=== PATIENT | female | born 1970 | race Caucasian/White ===

== ENCOUNTER 2024-01-13 05:58 | Inpatient (IN) | payer OTHER, SELFPAY ==
[2024-01-13] VITALS (42 sets, daily range): BP systolic 75–153; BP diastolic 34–85; PULSE 35–74; RESP 12–22; TEMP 36.5–37.1; O2SAT 94–100; BMI 17.3
--- NOTE | 2024-01-13 | ECG_ITS ---
Test Reason : BRADYCARDIA Blood Pressure : / mmHG Vent. Rate : 046 BPM Atrial Rate : 046 BPM P-R Int : 202 ms QRS Dur : 086 ms QT Int : 384 ms P-R-T Axes : 075 -77 071 degrees QTc Int : 336 ms Sinus bradycardia Left axis deviation Septal infarct (cited on or before 13-JAN-2024) Abnormal ECG When compared with ECG of 13-JAN-2024 15:28, Nonspecific T wave abnormality has replaced inverted T waves in Anterior leads QT has shortened Referred By: Cammy Hood Electronically Signed By:Efrain Conde
--- NOTE | ~2024-01-13 | XR_ITS ---
EXAMINATION: XR KNEE, LEFT CLINICAL INFORMATION: Left knee pain and swelling. COMPARISON: None available. TECHNIQUE: Two views of the left knee. FINDINGS: Alignment is normal patellofemoral and tibiofemoral compartments. No acute fracture or subluxation. Moderate joint effusion. Tricompartmental osteophyte formation. The joint spaces are not optimally evaluated on these portable radiographs obtained without weightbearing. XR/XR knee LT 2V IMPRESSION: Moderate to severe tricompartmental osteoarthritis and moderate joint effusion of the left knee. No evidence of acute osseous injury.
[2024-01-13 06:25] LABS: Glucose, Whole Blood 101 mg/dL (60-115)
--- NOTE | 2024-01-13 06:45 | ED_ITS ---
HPI - Extremity Problem General Chief complaint: Extremity Problem Stated complaint: Lt Knee swollen Time Seen by Provider: 01/13/24 06:44 Source: patient Mode of arrival: ambulatory Limitations: no limitations History of Present Illness HPI Narrative: 53-year-old female history of hypoglycemia who presents emergency department for evaluation of left knee pain and swelling. Patient states she has arthritis of her knees. She states that over the last 2 days she has had increased pain with swelling and increased warmth of the skin around the knee. She states she does feel fatigued but denied fever, chills, nausea, vomiting or diarrhea. The patient states that she smokes up to a g of cocaine per day and has been doing this every day for years. She denies injection drug use. According to her daughter, the patient never sleeps while she is using cocaine and then sleeps for several days. The daughter state that the patient always appears to be agitated even when she has not using cocaine. The patient was on prescription pain medications for her chronic pain and is changed to methadone for chronic pain, she denies ever using injection opiates. Related Data Allergies Allergy/AdvReac Type Severity Reaction Status Date / Time codeine AdvReac Rash Verified 01/13/24 06:15 Review of Systems 2 Review of Systems: Yes all other systems are reviewed and are negative [facility] Past Medical History [facility] Narrative: Past medical history: Hypoglycemia, cocaine use disorder, chronic methadone use. Past surgical history: Gastric bypass surgery 6 years prior. Social history: She does smoke cigarettes. She denies alcohol use. She does have chronic pain and is a methadone program for pain management. She denied injection drug use. Social History Social History Smoked in Last 30 Days: Yes Use of substances other than those prescribed or required for medical reasons: Yes Substance Use Type: Crack/Cocaine Advance Directives: No Advance Directives Information Provided: Yes Physical Exam 2 Vital Signs: Vital Signs: Last Vital Signs Temp 98 F 01/13/24 14:45 Pulse 41 L 01/13/24 16:40 Resp 21 H 01/13/24 15:15 BP 80/36 L 01/13/24 16:40 Pulse Ox 99 01/13/24 15:15 O2 Del Method Nasal Cannula 01/13/24 15:15 O2 Flow Rate 2.5 01/13/24 15:15 BMI result Body Mass Index 17.3 Vital signs revealed a blood pressure of 89/55 with a low heart rate of 47 Exam: General: Awake, appears to be in distress secondary to pain, low BMI of 17.3 Head: Normocephalic, atraumatic EENT: PERRL, Lids normal, sclera normal, conjunctiva normal, nose normal , ears normal, throat without erythema or exudates Neck: Supple, no adenopathy Lung: breath sounds symmetric, no wheezing, rales or rhonchi Chest: symmetric movement, nontender Heart: regular rate and rhythm, normal S1, S2 no murmurs or rubs Abdomen: soft, non-tender, nondistended, normal bowel sounds Back: no vertebral tenderness, no CVAT Extremities: Patient has increased warmth over the left knee with a large joint effusion, limited flexion and extension of the knee secondary to pain Neuro: Awake, alert, oriented, normal speech, cranial nerves intact, moves all extremities symmetrically Psych: Pleasant, cooperative Medications Administered Generic Name Dose Route Start Last Admin Trade Name Freq PRN Reason Stop Dose Admin Norepinephrine Bitartrate 8 mg in 250 mls @ 0 mls/hr 01/13/24 16:15 01/13/24 16:40 Levophed IV 0.01 mcg/kg/min .Q0M NICHO 0.86 mls/hr Administration Protocol Per Protocol Cefepime HCl 2 gm/ Sodium 50 mls @ 100 mls/hr 01/13/24 16:30 01/13/24 16:52 Chloride IV 100 mls/hr Q8H NICHO Administration Discontinued Medications Generic Name Dose Route Start Last Admin Trade Name Freq PRN Reason Stop Dose Admin Diphenhydramine HCl 25 mg 01/13/24 06:55 01/13/24 07:41 Diphenhydramine Hcl 50 Mg/Ml Vial IVPUSH 01/13/24 06:56 25 mg ONCE STA Administration Hydromorphone HCl 1 mg 01/13/24 06:55 01/13/24 07:44 Hydromorphone Hcl 1 Mg/Ml Syringe IVPUSH 01/13/24 06:56 1 mg ONCE STA Administration Protocol Ceftriaxone Sodium 1 gm/ 50 mls @ 100 mls/hr 01/13/24 11:41 01/13/24 12:42 Sodium Chloride IV 01/13/24 12:10 Infused ONCE ONE Infusion Vancomycin HCl 1,250 mg/ 250 mls @ 166.667 mls/hr 01/13/24 11:41 01/13/24 14:45 Sodium Chloride IV 01/13/24 13:10 Infused ONCE ONE Infusion Sodium Chloride 1,374.39 mls @ 1,374.39 mls/hr 01/13/24 11:47 01/13/24 13:30 Ns 30 ml/kg infuse over 1 hr (1374.39 ml) 01/13/24 12:46 Infused IV Infusion .Q1H STA Sodium Chloride 1,000 mls @ 999 mls/hr 01/13/24 13:40 01/13/24 14:55 Ns IV 01/13/24 14:40 Infused .Q1H1M STA Infusion Lidocaine HCl 5 ml 01/13/24 08:38 01/13/24 08:49 Lidocaine Hcl 1 % Mpf 5 Ml Vial INFILTRATI 01/13/24 08:39 5 ml ONCE STA Administration Midodrine 10 mg 01/13/24 13:39 01/13/24 13:49 Midodrine Hcl 10 Mg Tablet PO 01/13/24 13:40 10 mg ONCE ONE Administration Ondansetron HCl 4 mg 01/13/24 12:52 01/13/24 13:09 Ondansetron Hcl 4 Mg/2 Ml Vial IVPUSH 01/13/24 12:53 4 mg ONCE ONE Administration Medical Decision Making Medical Decision Making MDM Narrative: 53-year-old female with history of hypoglycemia, smokes up to 1 g of cocaine daily, takes methadone daily for chronic pain, denies injection drug use who presents emergency department for evaluation of 2 days of left knee pain, swelling and increased warmth. She states she felt fatigued but had no other systemic symptoms such as fever, chills, nausea, vomiting. Vital signs did reveal a low heart rate and a low blood pressure, but she was afebrile. Exam did reveal significant joint effusion to the left knee with increased warmth over the left knee with no significant cellulitis. 11:50 Differential diagnosis: ?Includes but is not limited to septic arthritis, inflammatory arthritis, electrolyte abnormalities, anemia, polysubstance use disorder Following evaluation was ordered: CBC, CMP, CRP, ESR, blood cultures x2, lactic acid, urine drug screen, urinalysis, blood cultures x2 x-ray left knee x2, synovial fluid: Cell count, culture and Gram stain, Course: 11:50 My interpretation patient's laboratory evaluation as follows: WBC was normal 8100. Anemia with an H&H of 11 and 34. Elevated CRP 11.89. Elevated ESR 26. Synovial fluid cell count 59,640-95% neutrophils 5% lymphocytes. Gram stain, culture and crystal analysis pending. Given the high number of WBCs and neutrophils and the patient's synovial fluid I did order ceftriaxone 1 g IV and vancomycin 1250 mg IV. I will discuss disposition with the covering orthopedic provider. 12:11 Patient's lactic acid was elevated at 2.2 13:55 The patient has had bradycardia and several low blood pressures. I ordered midodrine 10 mg orally and the patient will receive a total of 3 L of normal saline IV. I did discuss the patient's presentation with the orthopedic physician clinical project assistant, Ivette Brambila who presented the patient to Dr. Sigala. They would like to take the patient to the OR today however given her abnormal vital signs, orthopedics is requesting that the patient be admitted to medicine to stabilize her prior to surgery. They have placed the patient on the OR schedule for tomorrow and will do the procedure if the patient can be medically cleared. 16:33 Patient received midodrine and completed her fluid bolus but still hypotensive and the patient does have a sinus bradycardia. At this time I do not believe that the patient's hypotension and bradycardia are caused by sepsis but rather caused by her methadone and cocaine use. I did discuss the patient's presentation with the covering access services librarian, Dr. Cammy Hood. After this discussion, patient was started on norepinephrine low blood pressure and bradycardia. The patient was accepted into the intensive care unit for further management. I did inform the patient's daughters and the patient about the treatment plan. Admission/Observation Consideration of admission/observation: Escalation of care including admission/observation considered Consult Healthcare Provider Management of the patient was discussed with: Hospitalist and Examiner Rating Clerk (Physician clinical project assistant Kandi Brambila) Lab Data MDM Lab Attestation statement: I reviewed the patient's lab results. 01/13/24 07:41 01/13/24 07:41 Labs: Lab Results 01/13/24 01/13/24 01/13/24 Range/Units 06:21 07:41 08:54 WBC 8.1 (4.8-10.8) X10*3/uL RBC 4.19 L (4.20-5.50) X10*6/uL Hgb 11.2 L (12.0-16.0) g/dl Hct 34.7 L (37.0-47.0) % MCV 82.8 (80.0-98.0) fL MCH 26.7 L (27.0-33.0) pg MCHC 32.3 (31.0-35.0) g/dl RDW 15.2 (11.0-16.0) % Plt Count 232 (160-400) X10*3/uL MPV 8.7 L (9.4-12.3) fL Immature Gran % (Auto) 0.4 (0.0-0.4) % Neut % (Auto) 66.8 (45-73) % Lymph % (Auto) 18.1 L (20-40) % Kimble % (Auto) 13.0 H (2-11) % Eos % (Auto) 1.2 (0-4) % Baso % (Auto) 0.5 (0-2) % Lymph # (Auto) 1.5 (1.2-4.9) X10*3/uL Kimble # (Auto) 1.1 (0.1-1.2) X10*3/uL Eos # (Auto) 0.1 (0.0-0.4) X10*3/uL Baso # (Auto) 0.0 (0.0-0.2) X10*3/uL Abs Immat Gran (auto) 0.03 (0.00-0.03) X10*3/uL Absolute Neuts (auto) 5.4 (2.0-8.3) x10*3/uL Absolute Nucleated RBC 0.000 (0.0-0.012) X10*3/uL Nucleated RBC % (auto) 0.0 (0.0-0.2) /100WBC ESR 26 H (0-20) MM/HR Sodium 139 (135-145) mmol/L Potassium 3.4 (3.3-5.1) mmol/L Chloride 104 (96-108) mmol/L Carbon Dioxide 28 (22-29) mmol/L Anion Gap 10 L (12-20) BUN 11 (9-16) mg/dL Creatinine 0.58 (0.5-1.4) mg/dL Estim Creat Clear Calc 83.0 Estimated GFR > 60 POC Glucose 101 (60-115) mg/dL Random Glucose 96 (60-115) mg/dL Lactic Acid (0.5-2.0) mmol/L Lactic Acid F/U @ 2Hr (0.5-2.0) mmol/L Calcium 8.9 (8.4-10.2) mg/dL Total Bilirubin 0.7 (0.0-1.0) mg/dL AST 16 (5-31) U/L ALT 13 (0-31) U/L Alkaline Phosphatase 91 (39-117) U/L C-Reactive Protein 11.89 H (< or = 0.50) mg/dL Total Protein 6.6 (6.5-8.0) g/dL Albumin 3.6 (3.5-5.0) g/dL Urine Color Urine Appearance Urine pH (5.0-9.0) Ur Specific [place] (1.005-1.025) Urine Protein (Neg-Trace) mg/dL Urine Glucose (UA) (Negative) mg/dL Urine Ketones (Negative) mg/dL Urine Blood (Negative) Urine Nitrite (Negative) Ur Leukocyte Esterase (Negative) Urine RBC (0-2) /HPF Urine WBC (0-5) /HPF Ur Squamous Epith Cells (0-2) /HPF Urine Bacteria (None Seen) Hyaline Casts (0-2) /LPF Synovial Source left kneee Synovial WBC 59.640 X10*3/uL Synovial RBC 0.002 X10*6/uL Synovial Neutrophils 95 % Synovial Lymphocytes 5 % Urine Opiates Screen (Not Detect) Urine Fentanyl Screen (Not Detect) Ur Barbiturates Screen (Not Detect) Ur Phencyclidine Scrn (Not Detect) Ur Amphetamines Screen (Not Detect) U Benzodiazepines Scrn (Not Detect) Urine Cocaine Screen (Not Detect) U Marijuana (THC) Screen (Not Detect) 01/13/24 01/13/24 01/13/24 Range/Units 12:11 14:22 15:29 WBC (4.8-10.8) X10*3/uL RBC (4.20-5.50) X10*6/uL Hgb (12.0-16.0) g/dl Hct (37.0-47.0) % MCV (80.0-98.0) fL MCH (27.0-33.0) pg MCHC (31.0-35.0) g/dl RDW (11.0-16.0) % Plt Count (160-400) X10*3/uL MPV (9.4-12.3) fL Immature Gran % (Auto) (0.0-0.4) % Neut % (Auto) (45-73) % Lymph % (Auto) (20-40) % Kimble % (Auto) (2-11) % Eos % (Auto) (0-4) % Baso % (Auto) (0-2) % Lymph # (Auto) (1.2-4.9) X10*3/uL Kimble # (Auto) (0.1-1.2) X10*3/uL Eos # (Auto) (0.0-0.4) X10*3/uL Baso # (Auto) (0.0-0.2) X10*3/uL Abs Immat Gran (auto) (0.00-0.03) X10*3/uL Absolute Neuts (auto) (2.0-8.3) x10*3/uL Absolute Nucleated RBC (0.0-0.012) X10*3/uL Nucleated RBC % (auto) (0.0-0.2) /100WBC ESR (0-20) MM/HR Sodium (135-145) mmol/L Potassium (3.3-5.1) mmol/L Chloride (96-108) mmol/L Carbon Dioxide (22-29) mmol/L Anion Gap (12-20) BUN (9-16) mg/dL Creatinine (0.5-1.4) mg/dL Estim Creat Clear Calc Estimated GFR POC Glucose 96 (60-115) mg/dL Random Glucose (60-115) mg/dL Lactic Acid 2.2 H* (0.5-2.0) mmol/L Lactic Acid F/U @ 2Hr 0.9 (0.5-2.0) mmol/L Calcium (8.4-10.2) mg/dL Total Bilirubin (0.0-1.0) mg/dL AST (5-31) U/L ALT (0-31) U/L Alkaline Phosphatase (39-117) U/L C-Reactive Protein (< or = 0.50) mg/dL Total Protein (6.5-8.0) g/dL Albumin (3.5-5.0) g/dL Urine Color Yellow Urine Appearance Clear Urine pH 6.5 (5.0-9.0) Ur Specific [place] 1.015 (1.005-1.025) Urine Protein Negative (Neg-Trace) mg/dL Urine Glucose (UA) Negative (Negative) mg/dL Urine Ketones Negative (Negative) mg/dL Urine Blood Moderate (2+) H (Negative) Urine Nitrite Negative (Negative) Ur Leukocyte Esterase Negative (Negative) Urine RBC >20 H (0-2) /HPF Urine WBC 0-5 (0-5) /HPF Ur Squamous Epith Cells 0-2 (0-2) /HPF Urine Bacteria None Seen (None Seen) Hyaline Casts 0-2 (0-2) /LPF Synovial Source Synovial WBC X10*3/uL Synovial RBC X10*6/uL Synovial Neutrophils % Synovial Lymphocytes % Urine Opiates Screen Not Detected (Not Detect) Urine Fentanyl Screen Not Detected (Not Detect) Ur Barbiturates Screen Not Detected (Not Detect) Ur Phencyclidine Scrn Not Detected (Not Detect) Ur Amphetamines Screen Not Detected (Not Detect) U Benzodiazepines Scrn Not Detected (Not Detect) Urine Cocaine Screen POSITIVE H (Not Detect) U Marijuana (THC) Screen Not Detected (Not Detect) Independent Interpretation I performed an independent interpretation of an: EKG and Plain X-Ray Interpretation: My independent interpretation patient's left knee is as follows: Arthritic changes with no acute fracture My independent interpretation patient's 12 EKG done at 15:28 hours is as follows: Sinus bradycardia with a rate of 40, WA interval at the upper limit of normal 202 milliseconds with a normal QRS and QTC interval, there is no ST segment elevation there has no ST segment depression there is flattening of the T-waves diffusely, there are no old EKGs for comparison. Radiology Impression Discussion of test interpretation with radiology: I have reviewed the radiologist's reading. Radiologist Impression: XR knee LT 2V IMPRESSION: Moderate to severe tricompartmental osteoarthritis and moderate joint effusion of the left knee. No evidence of acute osseous injury. Dictated By: Jamshid Rosales MD Independent Historian Clinical information obtained from an independent historian. History obtained from or confirmed by: Other (Daughters) Procedures Procedure Narrative Procedure Narrative: Procedure note: Left knee arthrocentesis I did discuss the procedure with the patient and the daughter and they did give me informed verbal consent to proceed. After this discussion, I did not leave the room. The left knee was prepped with Betadine and then anesthetized with 1% lidocaine x3 cc. Using an 18 gauge needle and a 30 cc syringe, I was able to easily enter the joint space and aspirated approximately 60 cc of cloudy yellow synovial fluid. The needle was withdrawn and a Band-Aid was placed over the puncture site. The patient tolerated the procedure well. Critical Care Time Critical Care Time Critical Care Time: Yes Total Critical Care Time: 45 Attestation: Critical Care: The patient was critically ill with a high probability of imminent or life threatening deterioration. I spent greater than 30 minutes of discontinuous time evaluating the patient,delivering critical care at the bedside, discussing and evaluating pertinent data with consultants. Critical care time does not include time spent performing separately billable procedures or teaching. Total time spent performing critical care was 45 minutes. Discharge Plan Discharge Patient Disposition: Admitted As Inpatient Print Language: Guamanian
--- NOTE | 2024-01-13 07:35 | PC.NURSE ---
md kilgore notified bp 90s/70s MAP 82. no dizziness. pt restless but alert.
[2024-01-13] MEDS: diphenhydrAMINE HCL 50 MG/ML VIAL 25 MG IVPUSH (07:41)
[2024-01-13] MEDS: HYDROmorphone HCl 1 MG/ML SYRINGE IVPUSH (07:44)
[2024-01-13 07:55] LABS: MANUAL DIFF FLAG NO
[2024-01-13 07:57] LABS: Basophils Percent Auto 0.5 % (0-2); Eosinophils Absolute Auto 0.1 X10*3/uL (0.0-0.4); Eosinophils Percent Auto 1.2 % (0-4); Hematocrit 34.7 % (37.0-47.0); Hemoglobin 11.2 g/dl (12.0-16.0); Imm Gran Abs Auto 0.03 X10*3/uL (0.00-0.03); Imm Gran Pct Auto 0.4 % (0.0-0.4); Lymphocytes Absolute Auto 1.5 X10*3/uL (1.2-4.9); Lymphocytes Percent Auto 18.1 % (20-40); Mean Corpuscular HGB Conc 32.3 g/dl (31.0-35.0); Mean Corpuscular Hemoglobin 26.7 pg (27.0-33.0); Mean Corpuscular Volume 82.8 fL (80.0-98.0); Mean Platelet Volume 8.7 fL (9.4-12.3); Monocytes Absolute Auto 1.1 X10*3/uL (0.1-1.2); Neutrophils Absolute Auto 5.4 x10*3/uL (2.0-8.3); Neutrophils Percent Auto 66.8 % (45-73); Platelet Count 232 X10*3/uL (160-400); Red Blood Count 4.19 X10*6/uL (4.20-5.50); Red Cell Distribution Width 15.2 % (11.0-16.0); White Blood Count 8.1 X10*3/uL (4.8-10.8)
[2024-01-13 08:14] LABS: Alanine Aminotransferase 13 U/L (0-31); Albumin Level 3.6 g/dL (3.5-5.0); Alkaline Phosphatase 91 U/L (39-117); Anion Gap 10 (12-20); Aspartate Amino Transferase 16 U/L (5-31); Bilirubin Total 0.7 mg/dL (0.0-1.0); Blood Urea Nitrogen 11 mg/dL (9-16); C Reactive Protein 11.89 mg/dL (< or = 0.50); Calcium 8.9 mg/dL (8.4-10.2); Carbon Dioxide 28 mmol/L (22-29); Chloride 104 mmol/L (96-108); Estimated Glomerular Filt Rate > 60; Glucose Random 96 mg/dL (60-115); Potassium 3.4 mmol/L (3.3-5.1); Sodium 139 mmol/L (135-145); Total Protein 6.6 g/dL (6.5-8.0)
--- NOTE | 2024-01-13 08:15 | PC.NURSE ---
md kilgore ordered 2.5L NC as pt states baseline 2.5 L at home for COPD- provider aware 92% and above sat w/o resp distress, normal RR
[2024-01-13 08:47] LABS: Erythrocyte Sedimentation Rate 26 MM/HR (0-20)
[2024-01-13] MEDS: Lidocaine HCl 1 % MPF 5 ML VIAL INFILTRATI (08:49)
--- NOTE | 2024-01-13 09:20 | PC.NURSE ---
called lab to ask about appropriate synovial fluid tubes- lab sent down kit. obtained fluids, sent down by tech. handled procedure well. 30 cc yellow clear fluid by obtained.
--- NOTE | 2024-01-13 10:09 | PC.NURSE ---
reports improved pain.
--- NOTE | 2024-01-13 10:12 | PC.NURSE ---
md kilgore made aware bp 94/52, was sbp 103 about 15 min ago and hr is in the 40s-50s. no distress. pt sleeping/resting off/on without distress. no new orders. no dizziness
[2024-01-13 10:13] LABS: RBC Synovial Fluid 0.002 X10*6/uL
[2024-01-13 10:14] LABS: BF Shift QC OK YES; Man Diluent Bkgrd OK YES
[2024-01-13 10:58] LABS: Lymphocytes Synovial Fluid 5 %; Neutrophils Synovial Fluid 95 %
--- NOTE | 2024-01-13 11:14 | PC.NURSE ---
md kilgore aware 89/57(65) bp hr 47 bed 20. on/off dozing then restless. no distress.
--- NOTE | 2024-01-13 12:00 | PC.NURSE ---
walked to bathroom well w walker. gave urine clean catch. md kilgore at bedside sudhir'ing pt
[2024-01-13] MEDS: cefTRIAXone sodium 1 GM in 0.9 % Sodium Chloride 50 ML IV (12:09)
[2024-01-13 12:18] LABS: Appearance Urine Clear; Color Urine Yellow; Glucose Urine UA Negative (Negative); Leukocyte Esterase Urine Negative (Negative); Nitrite Urine Negative (Negative); PH 6.5 (5.0-9.0); Specific Gravity - Urine 1.015 (1.005-1.025); UMIC TRIGGER UACC YES; Urine Blood Moderate (2+) (Negative); Urine Ketones Negative (Negative); Urine Protein Negative (Neg-Trace)
[2024-01-13 12:23] LABS: Bacteria Urine None Seen (None Seen); Hyaline Casts Urine 0-2 /LPF (0-2); RBC Urine >20 /HPF (0-2); Squamous Epithelial Cell Urine 0-2 /HPF (0-2); WBC Urine 0-5 /HPF (0-5)
[2024-01-13 12:24] LABS: Amphetamine Screen Urine Not Detected (Not Detect); Barbiturates, Urine Not Detected (Not Detect); Benzodiazepines Screen Urine Not Detected (Not Detect); Cannabinoid Screen Urine Not Detected (Not Detect); Cocaine Screen Urine POSITIVE (Not Detect); Fentanyl, urine Not Detected (Not Detect); Opiate Screen Urine Not Detected (Not Detect); Phencyclidine Screen Urine Not Detected (Not Detect)
[2024-01-13 12:27] LABS: Lactic Acid 2.2 mmol/L (0.5-2.0)
[2024-01-13] MEDS: vancomycin HCL 1,250 MG in 0.9 % Sodium Chloride 250 ML 166.67 MG IV (12:46)
--- NOTE | 2024-01-13 12:57 | PC.NURSE ---
pt md jmae nava, ordering zofran
[2024-01-13] MEDS: ondansetron HCL 4 MG/2 ML VIAL IVPUSH (13:09)
--- NOTE | 2024-01-13 13:16 | PC.NURSE ---
md kilgore aware 78/44(57), hr for a brief moment to 42 back up to 56. pt was sleeping, when awaoke hr back to 50s.
[2024-01-13] MEDS: 0.9 % Sodium Chloride 1,000 ML 999 ML IV (13:49)
[2024-01-13] MEDS: Midodrine HCl 10 MG TABLET PO (13:49)
[2024-01-13 14:14] LABS: Reflex Lactate? Lactic Acid Added
[2024-01-13 14:37] LABS: ~Lactic Acid-LAB USE ONLY 0.9 mmol/L (0.5-2.0)
--- NOTE | 2024-01-13 15:19 | ECG_ITS ---
Test Reason : BRADYCARDIA Blood Pressure : / mmHG Vent. Rate : 038 BPM Atrial Rate : 038 BPM P-R Int : 188 ms QRS Dur : 090 ms QT Int : 342 ms P-R-T Axes : -77 270 066 degrees QTc Int : 271 ms Unusual P axis, possible ectopic atrial bradycardia Right superior axis deviation Septal infarct , age undetermined Abnormal ECG No previous ECGs available Referred By: Myke Garrido Electronically Signed By:Efrain Conde
--- NOTE | 2024-01-13 15:32 | PC.NURSE ---
per md kilgore ecg taken at bedside. md kilgore aware hr mid 30s , 95/50(65). pt resting, no distress.
[2024-01-13 15:35] LABS: Glucose, Whole Blood 96 mg/dL (60-115)
--- NOTE | 2024-01-13 16:29 | PHA.PROG ---
Admission Date/Time: Indication: BONE/JOINT INFECTION Weight in k.813 kg Adjusted body weight in K.145 Lugoff body weight in K.7 Obesity Dosing Indication % IBW: 17.3 Serum Creatinine - Last 168 Hours 01/13/24 07:41 Creatinine 0.58 Estimated CrCl and GFR - Last 168 Hours 01/13/24 07:41 Estim Creat Clear Calc 83.0 Estimated GFR > 60 Vancomycin Loading Dose: 1250 MG Current Vancomycin Dosing Regimen: 750 MG Q12 Vancomycin Monitoring using AUC goal of 400 - 600 range with trough as surrogate marker:445 Date and Time for next Vancomycin Level to be drawn: 01/13 @1700 Pharmacist Comments on Vancomycin Plan: BECAUSE OF PATIENT SMALL SIZE (IBW IS ACTUALLY GREATER THAN ACTUAL BW) WILL BE STARTING ON LOWER REGIMEN AT FIRST AND ASSESS TOMORROW TO SEE IF DOSE INCREASE IS WARRANTED. Vancomycin dosing will take advantage of [employer] as a clinical decision support tool that uses Bayesian modeling to calculate individual patient's pharmacokinetic parameters and forecast the patient's drug concentration time course with the target goal AUC 24 range of 400 - 600 mg/L/hr.
--- NOTE | 2024-01-13 16:37 | P.HPCC_ITS ---
History of Present Illness Date of Service: 01/13/24 Chief Complaint: L Knee Pain Patient is a 53 Y F with COPD, prior gastric bypass, recurrent hypoglycemia, chronic pain on methadone, and cocaine misuse, presenting on 01/12 to emergency department with L knee edema, pain; in emergency department, arthrocentesis performed, found to have synovial fluid suggestive of septic joint; of note, patient also found to have sinus bradycardia 30s-40s, and hypotension 80s/40s, though w/o clinical nor laboratory signs of shock; patient admitted to ICU for closer monitoring Review of Systems 2 Review of Systems: Yes all other systems are reviewed and are negative [facility] Social History Social History Household Members: Family Housing: House Do you presently have visiting nurse or other home services: No Patient Tobacco Use Status: Tobacco use Unknown Substance Use Type: Crack/Cocaine Meds Allergies Allergy/AdvReac Type Severity Reaction Status Date / Time codeine AdvReac Rash Verified 01/13/24 06:15 Active Medications: Current Medications Acetaminophen (Acetaminophen 325 Mg Tablet) 650 mg PO Q6H PRN PRN Reason: Fever >100.4 Hydromorphone HCl (Hydromorphone Hcl 0.5 Mg/0.5 Ml Syringe) 0.5 mg IVPUSH Q2H PRN; Protocol PRN Reason: Pain, Moderate(Pain Scale 4-6) Norepinephrine Bitartrate (Levophed) 8 mg in 250 mls @ 0 mls/hr IV .Q0M [facility]; Protocol Cefepime HCl 2 gm/ Sodium (Chloride) 50 mls @ 100 mls/hr IV Q8H [facility] Vancomycin HCl 750 mg/ Sodium (Chloride) 265 mls @ 265 mls/hr IV Q12H [facility] Pharmacy Consult (Consult Rx Vancomycin Dosing) 1 each MISCELLANE DAILY PRN PRN Reason: Consult order Home Medications ?Medication ?Instructions ?Recorded ?Confirmed ?Last Taken ?Type acetaminophen 500 mg tablet 500 mg PO Q6H PRN Pain 01/13/24 01/13/24 Unknown History methadone 10 mg/mL oral concentrate 100 mg PO DAILY 01/13/24 01/13/24 04:00 History Physical Exam 2 Vital Signs: Vital Signs: Last Vital Signs Temp 98 F 01/13/24 14:45 Pulse 39 L 01/13/24 15:15 Resp 21 H 01/13/24 15:15 BP 89/45 L 01/13/24 15:15 Pulse Ox 99 01/13/24 15:15 O2 Del Method Nasal Cannula 01/13/24 15:15 O2 Flow Rate 2.5 01/13/24 15:15 BMI result Body Mass Index 17.3 Results Labs 01/14/24 04:40 01/14/24 04:40 Labs: Laboratory Results - last 24 hr 01/13/24 01/13/24 01/13/24 06:21 07:41 08:54 MCV 82.8 MCH 26.7 L MCHC 32.3 RDW 15.2 Plt Count 232 MPV 8.7 L Immature Gran % (Auto) 0.4 Neut % (Auto) 66.8 Lymph % (Auto) 18.1 L [place] % (Auto) 13.0 H Eos % (Auto) 1.2 Baso % (Auto) 0.5 Lymph # (Auto) 1.5 [place] # (Auto) 1.1 Eos # (Auto) 0.1 Baso # (Auto) 0.0 Abs Immat Gran (auto) 0.03 Absolute Neuts (auto) 5.4 Absolute Nucleated RBC 0.000 Nucleated RBC % (auto) 0.0 ESR 26 H Anion Gap 10 L Estim Creat Clear Calc 83.0 Estimated GFR > 60 POC Glucose 101 Random Glucose 96 Lactic Acid Lactic Acid F/U @ 2Hr Calcium 8.9 Total Bilirubin 0.7 AST 16 ALT 13 Alkaline Phosphatase 91 C-Reactive Protein 11.89 H Total Protein 6.6 Albumin 3.6 Urine Color Urine Appearance Urine pH Ur Specific [place] Urine Protein Urine Glucose (UA) Urine Ketones Urine Blood Urine Nitrite Ur Leukocyte Esterase Urine RBC Urine WBC Ur Squamous Epith Cells Urine Bacteria Hyaline Casts Synovial Source left kneee Synovial WBC 59.640 Synovial RBC 0.002 Synovial Neutrophils 95 Synovial Lymphocytes 5 Urine Opiates Screen Urine Fentanyl Screen Ur Barbiturates Screen Ur Phencyclidine Scrn Ur Amphetamines Screen U Benzodiazepines Scrn Urine Cocaine Screen U Marijuana (THC) Screen 01/13/24 01/13/24 01/13/24 12:11 14:22 15:29 MCV MCH MCHC RDW Plt Count MPV Immature Gran % (Auto) Neut % (Auto) Lymph % (Auto) [place] % (Auto) Eos % (Auto) Baso % (Auto) Lymph # (Auto) [place] # (Auto) Eos # (Auto) Baso # (Auto) Abs Immat Gran (auto) Absolute Neuts (auto) Absolute Nucleated RBC Nucleated RBC % (auto) ESR Anion Gap Estim Creat Clear Calc Estimated GFR POC Glucose 96 Random Glucose Lactic Acid 2.2 H* Lactic Acid F/U @ 2Hr 0.9 Calcium Total Bilirubin AST ALT Alkaline Phosphatase C-Reactive Protein Total Protein Albumin Urine Color Yellow Urine Appearance Clear Urine pH 6.5 Ur Specific [place] 1.015 Urine Protein Negative Urine Glucose (UA) Negative Urine Ketones Negative Urine Blood Moderate (2+) H Urine Nitrite Negative Ur Leukocyte Esterase Negative Urine RBC >20 H Urine WBC 0-5 Ur Squamous Epith Cells 0-2 Urine Bacteria None Seen Hyaline Casts 0-2 Synovial Source Synovial WBC Synovial RBC Synovial Neutrophils Synovial Lymphocytes Urine Opiates Screen Not Detected Urine Fentanyl Screen Not Detected Ur Barbiturates Screen Not Detected Ur Phencyclidine Scrn Not Detected Ur Amphetamines Screen Not Detected U Benzodiazepines Scrn Not Detected Urine Cocaine Screen POSITIVE H U Marijuana (THC) Screen Not Detected Imaging Radiologist's Impressions: Impressions Knee X-Ray 01/13/24 08:14 IMPRESSION: Moderate to severe tricompartmental osteoarthritis and moderate joint effusion of the left knee. No evidence of acute osseous injury. Assessment and Plan (1) Septic joint of left knee joint: Status: Acute (2) Sinus bradycardia: Status: Acute (3) Hypotension: Status: Acute Plan Patient is a 53 Y F with COPD, prior gastric bypass, recurrent hypoglycemia, chronic pain on methadone, and cocaine misuse presenting with L knee pain, found to have septic joint; also found to be bradycardic, hypotensive N: no acute issues CV: hypotension, though does not appear to be in overt shock; norepinephrine gtt as needed, to monitor for any reflex bradycardia; can consider dopamine gtt; to follow-up lactics, TSH, tickborne panel, and echocardiogram R: no acute issues GI: no acute issues; regular diet until midnight, then NPO for procedural planning : no acute issues H: no acute issues; avoid chemical DVT prophylaxis for procedural planning ID: septic L knee, empiric vancomycin, cefepime; to follow-up synovial fluid cultures; case discussed w/ orthopedic surgery, plan for OR 01/12 at 8:00 E: reportedly prior hypoglycemia; to encourage PO intake, POC glucose P: no acute issues; cocaine misuse
[2024-01-13] MEDS: Norepinephrine Bitartrate/D5W 8 MG/250 ML PLAST..BAG 0.86 MG IV (16:40)
[2024-01-13] MEDS: cefEPime HCl 2 GM in 0.9 % Sodium Chloride 50 ML IV ×2 (16:52→23:19)
--- NOTE | 2024-01-13 17:33 | PC.NURSE ---
Addendum entered by Maricruz Rachel 01/13/24 17:34: no new orders from . Original Note: md mays notified bp remains low on levophed, 81/37, increasing per [facility] protocol. pt sleeping but awakens to voice
[2024-01-13 17:34] LABS: VBG Base Excess 0.7 mmol/L; VBG HCO3 27 mmol/L (22-26); VBG pCO2 52 mmHg; VBG pH 7.31 (7.32-7.43); VBG pO2 79 mmHg
[2024-01-13 17:35] LABS: Venous Blood Gas Refer to POC result
--- NOTE | 2024-01-13 17:40 | PHA.MEDREC ---
Pharmacy Consult ? Medication Reconciliation Pharmacy has completed the medication reconciliation. Spoke with daughters at bedside. They reported a 100mg dose of methadone daily, last taken this morning around 4am and picks up at [address] [place] [address].
--- NOTE | 2024-01-13 17:45 | PC.NURSE ---
md mays notified bp 71/35, continuing titration w levo per orders, no new interventions ordered. pt in no distress. able to follow command.
[2024-01-13 17:49] LABS: Cortisol Random 4.9 ug/dL; TSH reflex Free T4 1.56 uIU/mL (0.32-4.0)
--- NOTE | 2024-01-13 18:21 | PC.NURSE ---
report given to elisha rahman icu.
--- NOTE | 2024-01-13 18:25 | W.MHC.ACPN ---
Advanced Care Planning Note Advanced Care Planning Note Discussed with: patient and family member(s) Time spent (in minutes): 30 Narrative: Ms. Kapadia's daughters, Mireille and Lloy, asked to speak to me. I called the emergency department and was placed on speaker. I offered updates and clarifications. Ms. Kapadia also joined the conversation. Ms. Kapadia stated that she has signed a prior MOLST that states she is DNR/DNI, citing she does not want to be kept on life support at any point in time. She re-iterated her stance to be DNR/DNI. I discussed that anesthesia/surgery may possibly ask her to temporarily change her code status for per procedure tomorrow. I otherwise, will honor her DNR/DNI. Problems Discussed (1) Septic joint of left knee joint: (2) Sinus bradycardia: (3) Hypotension:
--- NOTE | 2024-01-13 18:38 | PC.NURSE ---
pt/fam had convo on phone w md mays re: code status. pt transferred to ICU, alert, talking. +pallor
[2024-01-13] MEDS: DOPamine HCL/D5W 400 MG/250 ML PLAST..BAG 8.59 MG IVCONT (19:27)
[2024-01-13 19:34] LABS: Lactic Acid 1.1 mmol/L (0.5-2.0)
[2024-01-13] MEDS: HYDROmorphone HCl 0.5 MG/0.5 ML SYRINGE IVPUSH (23:19)
[2024-01-13 23:54] LABS: Glucose, Whole Blood 118 mg/dL (60-115)
[2024-01-14] VITALS (30 sets, daily range): BP systolic 76–168; BP diastolic 29–90; PULSE 44–70; RESP 10–23; TEMP 36.6–37.4; O2SAT 89–100; BMI 17.3
[2024-01-14] MEDS: vancomycin HCL 750 MG in 0.9 % Sodium Chloride 250 ML 265 MG IV ×2 (00:01→12:14)
[2024-01-14] MEDS: HYDROmorphone HCl 0.5 MG/0.5 ML SYRINGE 1 MG IVPUSH ×4 (01:17→16:23)
[2024-01-14 04:55] LABS: MANUAL DIFF FLAG NO
[2024-01-14 04:56] LABS: Basophils Absolute Auto 0.1 X10*3/uL (0.0-0.2); Basophils Percent Auto 1.2 % (0-2); Eosinophils Absolute Auto 0.1 X10*3/uL (0.0-0.4); Eosinophils Percent Auto 2.1 % (0-4); Hematocrit 36.1 % (37.0-47.0); Hemoglobin 11.5 g/dl (12.0-16.0); Imm Gran Abs Auto 0.01 X10*3/uL (0.00-0.03); Imm Gran Pct Auto 0.2 % (0.0-0.4); Lymphocytes Absolute Auto 1.5 X10*3/uL (1.2-4.9); Lymphocytes Percent Auto 26.8 % (20-40); Mean Corpuscular HGB Conc 31.9 g/dl (31.0-35.0); Mean Corpuscular Hemoglobin 26.7 pg (27.0-33.0); Mean Corpuscular Volume 83.8 fL (80.0-98.0); Mean Platelet Volume 8.5 fL (9.4-12.3); Monocytes Absolute Auto 0.6 X10*3/uL (0.1-1.2); Monocytes Percent Auto 9.9 % (2-11); Neutrophils Absolute Auto 3.4 x10*3/uL (2.0-8.3); Neutrophils Percent Auto 59.8 % (45-73); Platelet Count 270 X10*3/uL (160-400); Red Blood Count 4.31 X10*6/uL (4.20-5.50); Red Cell Distribution Width 15.6 % (11.0-16.0); White Blood Count 5.7 X10*3/uL (4.8-10.8)
[2024-01-14 05:12] LABS: Albumin Level 3.4 g/dL (3.5-5.0); Anion Gap 11 (12-20); Blood Urea Nitrogen 7 mg/dL (9-16); Calcium 9.1 mg/dL (8.4-10.2); Carbon Dioxide 25 mmol/L (22-29); Chloride 109 mmol/L (96-108); Creatinine Clr Calc Pharmacy 92.6; Estimated Glomerular Filt Rate > 60; Glucose Random 100 mg/dL (60-115); Phosphorus 3.2 mg/dL (2.7-4.5); Potassium 3.4 mmol/L (3.3-5.1); Sodium 142 mmol/L (135-145)
[2024-01-14 05:33] LABS: Cortisol Random 7.6 ug/dL
[2024-01-14] MEDS: Potassium Chloride/H20 10 MEQ/100 ML PIGGYBACK 100 MEQ IV (05:58)
--- NOTE | 2024-01-14 07:59 | HO.ANESPROP2 ---
HPI - Anesthesia Eval Consult details Narrative: Septic knee PMFSH Active Problems Active Problems: All Active Problems Methadone maintenance therapy patient (Acute) Cocaine use (Acute) Hypotension (Acute) Septic joint of left knee joint (Acute) Sinus bradycardia (Acute) Family History Family history of problems with anesthesia: No Surgical History History of Problems with Anesthesia: No Social History Social History Household Members: Family Housing: House Do you presently have visiting nurse or other home services: No Patient Tobacco Use Status: Tobacco use Unknown Substance Use Type: Crack/Cocaine Meds Allergies Allergy/AdvReac Type Severity Reaction Status Date / Time codeine AdvReac Rash Verified 01/13/24 06:15 Active Medications: Current Medications Acetaminophen (Acetaminophen 325 Mg Tablet) 650 mg PO Q6H PRN PRN Reason: Fever >100.4 Hydromorphone HCl (Hydromorphone Hcl 0.5 Mg/0.5 Ml Syringe) 1 mg IVPUSH Q2H PRN; Protocol PRN Reason: Pain, Moderate(Pain Scale 4-6) Last Admin: 01/14/24 06:58 Dose: 1 mg Norepinephrine Bitartrate (Levophed) 8 mg in 250 mls @ 0 mls/hr IV .Q0M [facility]; Protocol Last Titration: 01/14/24 00:51 Dose: 0 mcg/kg/min, 0 mls/hr Cefepime HCl 2 gm/ Sodium (Chloride) 50 mls @ 100 mls/hr IV Q8H [facility] Last Infusion: 01/14/24 00:02 Dose: Infused Vancomycin HCl 750 mg/ Sodium (Chloride) 265 mls @ 265 mls/hr IV Q12H [facility] Last Infusion: 01/14/24 01:11 Dose: Infused Dopamine HCl/Dextrose (Dopamine Hcl/D5w) 400 mg in 250 mls @ 0 mls/hr IVCONT .Q0M [facility]; Protocol Last Titration: 01/13/24 19:54 Dose: 10 mcg/kg/min, 17.18 mls/hr Potassium Chloride (Potassium Chloride/H20) 10 meq in 100 mls @ 100 mls/hr IV Q1H [facility] Stop: 01/14/24 07:59 Last Infusion: 01/14/24 06:13 Dose: 50 mls/hr Cefazolin Sodium/Dextrose (Ancef) 2 gm in 50 mls @ 100 mls/hr IV PREOP ONE Stop: 01/14/24 08:18 Pharmacy Consult (Consult Rx Vancomycin Dosing) 1 each MISCELLANE DAILY PRN PRN Reason: Consult order Home Medications ?Medication ?Instructions ?Recorded ?Confirmed ?Last Taken ?Type acetaminophen 500 mg tablet 500 mg PO Q6H PRN Pain 01/13/24 01/13/24 Unknown History methadone 10 mg/mL oral concentrate 100 mg PO DAILY 01/13/24 01/13/24 04:00 History Exam Height,Weight and Vital Signs: Height 5 ft 4 in Weight 45.8 kg Last Vital Signs Temp 98.0 F 01/14/24 03:00 Pulse 66 01/14/24 07:00 Resp 15 01/14/24 07:00 BP 117/61 01/14/24 06:00 Pulse Ox 96 01/14/24 07:00 O2 Del Method Room Air 01/14/24 07:00 O2 Flow Rate 1 01/14/24 03:00 Pertinent Lab Results Pertinent Lab Results: Laboratory Tests 01/13/24 01/13/24 01/13/24 06:21 07:41 08:54 WBC 8.1 RBC 4.19 L Hgb 11.2 L Hct 34.7 L MCV 82.8 MCH 26.7 L MCHC 32.3 RDW 15.2 Plt Count 232 MPV 8.7 L Immature Gran % (Auto) 0.4 Neut % (Auto) 66.8 Lymph % (Auto) 18.1 L [place] % (Auto) 13.0 H Eos % (Auto) 1.2 Baso % (Auto) 0.5 Lymph # (Auto) 1.5 [place] # (Auto) 1.1 Eos # (Auto) 0.1 Baso # (Auto) 0.0 Abs Immat Gran (auto) 0.03 Absolute Neuts (auto) 5.4 Absolute Nucleated RBC 0.000 Nucleated RBC % (auto) 0.0 ESR 26 H VBG pH VBG pCO2 VBG pO2 VBG HCO3 VBG O2 Saturation VBG Base Excess Sodium 139 Potassium 3.4 Chloride 104 Carbon Dioxide 28 Anion Gap 10 L BUN 11 Creatinine 0.58 Estim Creat Clear Calc 83.0 Estimated GFR > 60 POC Glucose 101 Random Glucose 96 Lactic Acid Lactic Acid F/U @ 2Hr Calcium 8.9 Phosphorus Magnesium Total Bilirubin 0.7 AST 16 ALT 13 Alkaline Phosphatase 91 C-Reactive Protein 11.89 H Total Protein 6.6 Albumin 3.6 TSH Random Cortisol Hold Red Top Urine Color Urine Appearance Urine pH Ur Specific [place] Urine Protein Urine Glucose (UA) Urine Ketones Urine Blood Urine Nitrite Ur Leukocyte Esterase Urine RBC Urine WBC Ur Squamous Epith Cells Urine Bacteria Hyaline Casts Synovial Source left kneee Synovial WBC 59.640 Synovial RBC 0.002 Synovial Neutrophils 95 Synovial Lymphocytes 5 Urine Opiates Screen Urine Fentanyl Screen Ur Barbiturates Screen Ur Phencyclidine Scrn Ur Amphetamines Screen U Benzodiazepines Scrn Urine Cocaine Screen U Marijuana (THC) Screen Blood Type Antibody Screen 01/13/24 01/13/24 01/13/24 12:11 14:22 15:29 WBC RBC Hgb Hct MCV MCH MCHC RDW Plt Count MPV Immature Gran % (Auto) Neut % (Auto) Lymph % (Auto) [place] % (Auto) Eos % (Auto) Baso % (Auto) Lymph # (Auto) [place] # (Auto) Eos # (Auto) Baso # (Auto) Abs Immat Gran (auto) Absolute Neuts (auto) Absolute Nucleated RBC Nucleated RBC % (auto) ESR VBG pH VBG pCO2 VBG pO2 VBG HCO3 VBG O2 Saturation VBG Base Excess Sodium Potassium Chloride Carbon Dioxide Anion Gap BUN Creatinine Estim Creat Clear Calc Estimated GFR POC Glucose 96 Random Glucose Lactic Acid 2.2 H* Lactic Acid F/U @ 2Hr 0.9 Calcium Phosphorus Magnesium Total Bilirubin AST ALT Alkaline Phosphatase C-Reactive Protein Total Protein Albumin TSH Random Cortisol Hold Red Top Urine Color Yellow Urine Appearance Clear Urine pH 6.5 Ur Specific [place] 1.015 Urine Protein Negative Urine Glucose (UA) Negative Urine Ketones Negative Urine Blood Moderate (2+) H Urine Nitrite Negative Ur Leukocyte Esterase Negative Urine RBC >20 H Urine WBC 0-5 Ur Squamous Epith Cells 0-2 Urine Bacteria None Seen Hyaline Casts 0-2 Synovial Source Synovial WBC Synovial RBC Synovial Neutrophils Synovial Lymphocytes Urine Opiates Screen Not Detected Urine Fentanyl Screen Not Detected Ur Barbiturates Screen Not Detected Ur Phencyclidine Scrn Not Detected Ur Amphetamines Screen Not Detected U Benzodiazepines Scrn Not Detected Urine Cocaine Screen POSITIVE H U Marijuana (THC) Screen Not Detected Blood Type Antibody Screen 01/13/24 01/13/24 01/13/24 17:04 17:14 17:27 WBC RBC Hgb Hct MCV MCH MCHC RDW Plt Count MPV Immature Gran % (Auto) Neut % (Auto) Lymph % (Auto) [place] % (Auto) Eos % (Auto) Baso % (Auto) Lymph # (Auto) [place] # (Auto) Eos # (Auto) Baso # (Auto) Abs Immat Gran (auto) Absolute Neuts (auto) Absolute Nucleated RBC Nucleated RBC % (auto) ESR VBG pH 7.31 L VBG pCO2 52 VBG pO2 79 VBG HCO3 27 H VBG O2 Saturation 96.0 VBG Base Excess 0.7 Sodium Potassium Chloride Carbon Dioxide Anion Gap BUN Creatinine Estim Creat Clear Calc Estimated GFR POC Glucose Random Glucose Lactic Acid Lactic Acid F/U @ 2Hr Calcium Phosphorus Magnesium Total Bilirubin AST ALT Alkaline Phosphatase C-Reactive Protein Total Protein Albumin TSH 1.56 Random Cortisol 4.9 Hold Red Top See Note Urine Color Urine Appearance Urine pH Ur Specific [place] Urine Protein Urine Glucose (UA) Urine Ketones Urine Blood Urine Nitrite Ur Leukocyte Esterase Urine RBC Urine WBC Ur Squamous Epith Cells Urine Bacteria Hyaline Casts Synovial Source Synovial WBC Synovial RBC Synovial Neutrophils Synovial Lymphocytes Urine Opiates Screen Urine Fentanyl Screen Ur Barbiturates Screen Ur Phencyclidine Scrn Ur Amphetamines Screen U Benzodiazepines Scrn Urine Cocaine Screen U Marijuana (THC) Screen Blood Type A Positive Antibody Screen NEGATIVE 01/13/24 01/13/24 01/14/24 18:50 23:48 04:40 WBC 5.7 RBC 4.31 Hgb 11.5 L Hct 36.1 L MCV 83.8 MCH 26.7 L MCHC 31.9 RDW 15.6 Plt Count 270 MPV 8.5 L Immature Gran % (Auto) 0.2 Neut % (Auto) 59.8 Lymph % (Auto) 26.8 [place] % (Auto) 9.9 Eos % (Auto) 2.1 Baso % (Auto) 1.2 Lymph # (Auto) 1.5 [place] # (Auto) 0.6 Eos # (Auto) 0.1 Baso # (Auto) 0.1 Abs Immat Gran (auto) 0.01 Absolute Neuts (auto) 3.4 Absolute Nucleated RBC 0.000 Nucleated RBC % (auto) 0.0 ESR VBG pH VBG pCO2 VBG pO2 VBG HCO3 VBG O2 Saturation VBG Base Excess Sodium 142 Potassium 3.4 Chloride 109 H Carbon Dioxide 25 Anion Gap 11 L BUN 7 L Creatinine 0.52 Estim Creat Clear Calc 92.6 Estimated GFR > 60 POC Glucose 118 H Random Glucose 100 Lactic Acid 1.1 Lactic Acid F/U @ 2Hr Calcium 9.1 Phosphorus 3.2 Magnesium 2.0 Total Bilirubin AST ALT Alkaline Phosphatase C-Reactive Protein Total Protein Albumin 3.4 L TSH Random Cortisol 7.6 Hold Red Top Urine Color Urine Appearance Urine pH Ur Specific [place] Urine Protein Urine Glucose (UA) Urine Ketones Urine Blood Urine Nitrite Ur Leukocyte Esterase Urine RBC Urine WBC Ur Squamous Epith Cells Urine Bacteria Hyaline Casts Synovial Source Synovial WBC Synovial RBC Synovial Neutrophils Synovial Lymphocytes Urine Opiates Screen Urine Fentanyl Screen Ur Barbiturates Screen Ur Phencyclidine Scrn Ur Amphetamines Screen U Benzodiazepines Scrn Urine Cocaine Screen U Marijuana (THC) Screen Blood Type Antibody Screen Airway Mallampati Class: I TM Dist: >3cm Neck ROM: Full Heart: RRR Lungs: CTA Assessment and Plan Assessment Anesthesia Assessment: Anesthesia Plan Discussed and Chart Reviewed Final Anesthetic Review Family History of Problems with Anesthesia: No History of Problems with Anesthesia: No NPO: Yes ASA Class: IV and Emergency Final Preanesthetic Review: No Changes in Pt Med Stat, Meds/Allgs Chart Reviewed, Consent Obtained/Reviewed and Anes Risks/Benef Reviewed Patient Risk: High Procedure Risk: Low Anesthetic Plan Anesthetic Plan: GA Disposition: Inp. Admit - ICU
--- NOTE | 2024-01-14 08:00 | W.MHC.ACPN ---
Advanced Care Planning Note Advanced Care Planning Note Discussed with: patient and family member(s) Time spent (in minutes): 15 Narrative: I met Ms. Duque and her daughters in person this AM. Ms. Duque was unable to sign a healthcare proxy form as social work was unavailable. I said we will try to get social work to come see Ms. Duque after the OR. We discussed and signed a MOLST form, which stated Ms. Duque does not want any additional interventions except for short-term artificial hydration. A copy of Ms. Duque was given to her and her daughters per their request. Problems Discussed (1) Septic joint of left knee joint: (2) Sinus bradycardia: (3) Hypotension:
--- NOTE | 2024-01-14 08:02 | P.PNCC_ITS ---
Subjective Subjective Date of Service: 01/14/24 Interval History: no significant overnight events; on low-dose dopamine gtt Critical Care Time (minutes): 60 Physical Exam 2 Vital Signs: Vital Signs: Last Vital Signs Temp 98.0 F 01/14/24 03:00 Pulse 66 01/14/24 07:00 Resp 15 01/14/24 07:00 BP 117/61 01/14/24 06:00 Pulse Ox 96 01/14/24 07:00 O2 Del Method Room Air 01/14/24 07:00 O2 Flow Rate 1 01/14/24 03:00 BMI result Body Mass Index 17.3 Const: General: cooperative, healthy appearing, comfortable, no acute distress, well developed, alert, awake and Physically active O rientation/consciousness: patient oriented x3 HEENT: Head: Yes normal to inspection, Yes normocephalic and Yes atraumatic Eyes: General: appearance normal, both eyes and all related structures Neck: Neck: Yes normal visual inspection, Yes full ROM, Yes no meningeal signs, Yes trachea midline and Yes supple Chest: Chest palpation & inspection: normal inspection of the chest Resp: Other: no appreciable rales, rhonchi, wheezing Effort & Inspection: normal respiratory effort Cardio: Rate: bradycardic Rhythm: regular rhythm GI: Inspection: Yes normal to inspection, No Abdominal wall edema and No distended Palpation (GI): Soft to palpation, not firm, nontender, no guarding and not rigid : External Female Exam: normal external appearance Skin: General skin exam: no rashes or lesions noted Neuro: General: patient oriented x3, tone normal, moves all extremities, no meningeal signs and no focal motor deficits Extrem: Other: L knee edema, some erythema; appreciable equal distal pulses bilaterally General: Yes normal to inspection, Yes full ROM and Yes capillary refill normal Psych: Appearance: grossly normal Objective Data Labs 01/14/24 04:40 01/14/24 04:40 Labs: Laboratory Results - last 24 hr 01/13/24 01/13/24 01/13/24 07:41 08:54 12:11 WBC RBC Hgb Hct MCV MCH MCHC RDW Plt Count MPV Immature Gran % (Auto) Neut % (Auto) Lymph % (Auto) [place] % (Auto) Eos % (Auto) Baso % (Auto) Lymph # (Auto) [place] # (Auto) Eos # (Auto) Baso # (Auto) Abs Immat Gran (auto) Absolute Neuts (auto) Absolute Nucleated RBC Nucleated RBC % (auto) ESR 26 H VBG pH VBG pCO2 VBG pO2 VBG HCO3 VBG O2 Saturation VBG Base Excess Sodium 139 Potassium 3.4 Chloride 104 Carbon Dioxide 28 Anion Gap 10 L BUN 11 Creatinine 0.58 Estim Creat Clear Calc 83.0 Estimated GFR > 60 POC Glucose Random Glucose 96 Lactic Acid 2.2 H* Lactic Acid F/U @ 2Hr Calcium 8.9 Phosphorus Magnesium Total Bilirubin 0.7 AST 16 ALT 13 Alkaline Phosphatase 91 C-Reactive Protein 11.89 H Total Protein 6.6 Albumin 3.6 TSH Random Cortisol Hold Red Top Urine Color Yellow Urine Appearance Clear Urine pH 6.5 Ur Specific [place] 1.015 Urine Protein Negative Urine Glucose (UA) Negative Urine Ketones Negative Urine Blood Moderate (2+) H Urine Nitrite Negative Ur Leukocyte Esterase Negative Urine RBC >20 H Urine WBC 0-5 Ur Squamous Epith Cells 0-2 Urine Bacteria None Seen Hyaline Casts 0-2 Synovial Source left kneee Synovial WBC 59.640 Synovial RBC 0.002 Synovial Neutrophils 95 Synovial Lymphocytes 5 Urine Opiates Screen Not Detected Urine Fentanyl Screen Not Detected Ur Barbiturates Screen Not Detected Ur Phencyclidine Scrn Not Detected Ur Amphetamines Screen Not Detected U Benzodiazepines Scrn Not Detected Urine Cocaine Screen POSITIVE H U Marijuana (THC) Screen Not Detected Blood Type Antibody Screen 01/13/24 01/13/24 01/13/24 14:22 15:29 17:04 WBC RBC Hgb Hct MCV MCH MCHC RDW Plt Count MPV Immature Gran % (Auto) Neut % (Auto) Lymph % (Auto) [place] % (Auto) Eos % (Auto) Baso % (Auto) Lymph # (Auto) [place] # (Auto) Eos # (Auto) Baso # (Auto) Abs Immat Gran (auto) Absolute Neuts (auto) Absolute Nucleated RBC Nucleated RBC % (auto) ESR VBG pH VBG pCO2 VBG pO2 VBG HCO3 VBG O2 Saturation VBG Base Excess Sodium Potassium Chloride Carbon Dioxide Anion Gap BUN Creatinine Estim Creat Clear Calc Estimated GFR POC Glucose 96 Random Glucose Lactic Acid Lactic Acid F/U @ 2Hr 0.9 Calcium Phosphorus Magnesium Total Bilirubin AST ALT Alkaline Phosphatase C-Reactive Protein Total Protein Albumin TSH 1.56 Random Cortisol 4.9 Hold Red Top See Note Urine Color Urine Appearance Urine pH Ur Specific [place] Urine Protein Urine Glucose (UA) Urine Ketones Urine Blood Urine Nitrite Ur Leukocyte Esterase Urine RBC Urine WBC Ur Squamous Epith Cells Urine Bacteria Hyaline Casts Synovial Source Synovial WBC Synovial RBC Synovial Neutrophils Synovial Lymphocytes Urine Opiates Screen Urine Fentanyl Screen Ur Barbiturates Screen Ur Phencyclidine Scrn Ur Amphetamines Screen U Benzodiazepines Scrn Urine Cocaine Screen U Marijuana (THC) Screen Blood Type Antibody Screen 01/13/24 01/13/24 01/13/24 17:14 17:27 18:50 WBC RBC Hgb Hct MCV MCH MCHC RDW Plt Count MPV Immature Gran % (Auto) Neut % (Auto) Lymph % (Auto) [place] % (Auto) Eos % (Auto) Baso % (Auto) Lymph # (Auto) [place] # (Auto) Eos # (Auto) Baso # (Auto) Abs Immat Gran (auto) Absolute Neuts (auto) Absolute Nucleated RBC Nucleated RBC % (auto) ESR VBG pH 7.31 L VBG pCO2 52 VBG pO2 79 VBG HCO3 27 H VBG O2 Saturation 96.0 VBG Base Excess 0.7 Sodium Potassium Chloride Carbon Dioxide Anion Gap BUN Creatinine Estim Creat Clear Calc Estimated GFR POC Glucose Random Glucose Lactic Acid 1.1 Lactic Acid F/U @ 2Hr Calcium Phosphorus Magnesium Total Bilirubin AST ALT Alkaline Phosphatase C-Reactive Protein Total Protein Albumin TSH Random Cortisol Hold Red Top Urine Color Urine Appearance Urine pH Ur Specific [place] Urine Protein Urine Glucose (UA) Urine Ketones Urine Blood Urine Nitrite Ur Leukocyte Esterase Urine RBC Urine WBC Ur Squamous Epith Cells Urine Bacteria Hyaline Casts Synovial Source Synovial WBC Synovial RBC Synovial Neutrophils Synovial Lymphocytes Urine Opiates Screen Urine Fentanyl Screen Ur Barbiturates Screen Ur Phencyclidine Scrn Ur Amphetamines Screen U Benzodiazepines Scrn Urine Cocaine Screen U Marijuana (THC) Screen Blood Type A Positive Antibody Screen NEGATIVE 01/13/24 01/14/24 23:48 04:40 WBC 5.7 RBC 4.31 Hgb 11.5 L Hct 36.1 L MCV 83.8 MCH 26.7 L MCHC 31.9 RDW 15.6 Plt Count 270 MPV 8.5 L Immature Gran % (Auto) 0.2 Neut % (Auto) 59.8 Lymph % (Auto) 26.8 [place] % (Auto) 9.9 Eos % (Auto) 2.1 Baso % (Auto) 1.2 Lymph # (Auto) 1.5 [place] # (Auto) 0.6 Eos # (Auto) 0.1 Baso # (Auto) 0.1 Abs Immat Gran (auto) 0.01 Absolute Neuts (auto) 3.4 Absolute Nucleated RBC 0.000 Nucleated RBC % (auto) 0.0 ESR VBG pH VBG pCO2 VBG pO2 VBG HCO3 VBG O2 Saturation VBG Base Excess Sodium 142 Potassium 3.4 Chloride 109 H Carbon Dioxide 25 Anion Gap 11 L BUN 7 L Creatinine 0.52 Estim Creat Clear Calc 92.6 Estimated GFR > 60 POC Glucose 118 H Random Glucose 100 Lactic Acid Lactic Acid F/U @ 2Hr Calcium 9.1 Phosphorus 3.2 Magnesium 2.0 Total Bilirubin AST ALT Alkaline Phosphatase C-Reactive Protein Total Protein Albumin 3.4 L TSH Random Cortisol 7.6 Hold Red Top Urine Color Urine Appearance Urine pH Ur Specific [place] Urine Protein Urine Glucose (UA) Urine Ketones Urine Blood Urine Nitrite Ur Leukocyte Esterase Urine RBC Urine WBC Ur Squamous Epith Cells Urine Bacteria Hyaline Casts Synovial Source Synovial WBC Synovial RBC Synovial Neutrophils Synovial Lymphocytes Urine Opiates Screen Urine Fentanyl Screen Ur Barbiturates Screen Ur Phencyclidine Scrn Ur Amphetamines Screen U Benzodiazepines Scrn Urine Cocaine Screen U Marijuana (THC) Screen Blood Type Antibody Screen Microbiology Microbiology Results: Microbiology 01/13/24 08:54 Knee aspirate Gram Stain - Final 01/13/24 08:54 Knee aspirate Gross Specimen Examination - Final 01/13/24 08:54 Knee aspirate Fluid Crystals - Final Progress Note: A&P Assessment and plan (1) Methadone maintenance therapy patient: Status: Acute (2) Cocaine use: Status: Acute (3) Septic joint of left knee joint: Status: Acute (4) Sinus bradycardia: Status: Acute (5) Hypotension: Status: Acute Plan Patient is a 53 Y F with COPD, prior gastric bypass, recurrent hypoglycemia, chronic pain on methadone, and cocaine misuse presenting with L knee pain, found to have septic joint; also found to be bradycardic, hypotensive N: no acute issues; chronic pain on methadone CV: hypotension, though does not appear to be in overt shock; dopamine gtt, wean as tolerated; to follow-up tickborne panel and echocardiogram R: no acute issues; COPD, on home 2 L NC as needed GI: no acute issues; regular diet until midnight, then NPO for procedural planning : no acute issues H: no acute issues; avoid chemical DVT prophylaxis for procedural planning ID: septic L knee, empiric vancomycin, cefepime; to follow-up synovial fluid cultures E: reportedly prior hypoglycemia; to encourage PO intake, POC glucose P: no acute issues; cocaine misuse Quality Stroke Does the patient have a stroke diagnosis?: No VTE Prior VTE?: No VTE Risk Level:: Medical - moderate - high VTE Device Contraindication: N/A - Device Ordered VTE Drug Contraindication: Treatment Not Indicated
[2024-01-14 08:22] LABS: Glucose, Whole Blood 111 mg/dL (60-115)
[2024-01-14] MEDS: Potassium Chloride/H20 10 MEQ/100 ML PIGGYBACK 50 MEQ IV (08:26)
--- NOTE | 2024-01-14 09:13 | HE.PHANOTE ---
RE: methadone Received last dose verification form from [facility] Laura 100mg 01/13/24
--- NOTE | 2024-01-14 09:42 | PM.OP ---
Brief Operative Note Date of Service: 01/14/24 Pre-op diagnosis: Septic left knee Post-op diagnosis: same Procedure: Left knee arthroscopic washout Implants: None Surgeon: Rajinder Avila MD Anesthesia: GLMA Was an Medical Transcriber used for this Procedure?: No Estimated blood loss (mL): 10 Pathology: other (Left knee joint fluid for cultures, Gram stain, crystals) Condition: stable Disposition: ICU
--- NOTE | 2024-01-14 09:43 | W.PM.OPN ---
Operative Note Operative Note Date of Service: 01/14/24 Narrative: After the patient was identified as Jeanna Duque and her left knee was initialed by myself they were brought to the operating room where general anesthesia was induced by the anesthesiologist in routine fashion. The patient was given 2 g of IV Ancef preoperatively for infection prophylaxis. The patient's left lower extremity was prepped and draped in sterile fashion. A formal time-out was completed. An 18 gauge needle was then introduced into the knee joint. 10 cc of yellow, slightly cloudy fluid were aspirated from the patient's left knee. The fluid would be sent for cultures, Gram stain and crystals. A #11 scalpel blade was used to make an anterolateral portal 1 cm proximal to the joint line and 1 cm lateral to the patellar tendon. Blunt trocar technique was used to enter the suprapatellar pouch with the knee in extension. Diagnostic arthroscopy showed multiple bands of thickened plica which would be excised at the end of the procedure. There were no loose bodies or abnormalities found in either the medial or lateral gutters. There was no necrotic or purulent appearing tissues or fluid. There was inflammation of the synovium diffusely within the suprapatellar pouch. The synovium would be removed at the end of the procedure. The articular surface of the patella showed diffuse grades two and 3 degenerative changes. The trochlear groove articular surface showed diffuse grades 1 and 2 degenerative changes. The patient's knee was flexed to 45 degrees and a valgus force was placed upon it. The medial compartment was entered. An anteromedial portal was made 1 cm proximal to the joint line and 1 cm medial to the patellar tendon. There was degenerative fraying of the anterior horn of the medial meniscus. The frayed fibers were debrided using the arthroscopic shaver. There were diffuse grades 2 and 3 degenerative changes of the medial femoral condyle as well as grades 1 and 2 degenerative changes of the medial tibial plateau. The articular surface of the medial femoral condyle was then made smooth using the arthroscopic shaver. The articular surface of the medial tibial plateau was already smooth so no chondroplasty was indicated. The patient's knee was placed into a neutral position. There was no injury to the anterior cruciate ligament. The patient's knee was then placed in the figure of 4 position and the lateral compartment was entered. There was no evidence of lateral meniscus tearing. There were diffuse grade 2 degenerative changes of the lateral femoral condyle and lateral tibial plateau. The patient's knee was once again brought into extension and the suprapatellar pouch was entered. The arthroscopic shaver and the ArthroCare Wand were used to excise the inflamed synovium as well as the thickened bands of plica. The undersurface of the patella was then made smooth using the arthroscopic shaver. The articular surface of the trochlear groove was already smooth so no chondroplasty was indicated. A superomedial incision was then made using a # 11 scalpel blade. A 2nd cannula was placed through the incision into the suprapatellar pouch. The knee joint was then irrigated with a total of 6 L of normal saline solution. All arthroscopic instruments were removed. The 2 portals were closed with 3-0 nylon interrupted suture. The knee joint was injected with Marcaine. Dry sterile dressing and Luis Felipe bandages were placed over the patient's knee. The patient was awoken and extubated in the operating room. The patient was transferred to the recovery room in stable condition.
[2024-01-14] MEDS: methADONE HCl 20 MG/2 ML ORAL.CONC 100 MG PO (09:47)
[2024-01-14] MEDS: cefEPime HCl 2 GM in 0.9 % Sodium Chloride 50 ML IV ×2 (09:56→16:12)
[2024-01-14] MEDS: Acetaminophen 1,000 MG/100 ML PIGGYBACK 400 MG IV (10:07)
[2024-01-14] MEDS: oxyCODONE HCl Immed Release 15 MG TABLET 30 MG PO ×3 (10:20→22:24)
[2024-01-14] MEDS: DOPamine HCL/D5W 400 MG/250 ML PLAST..BAG 8.59 MG IVCONT (12:27)
--- NOTE | 2024-01-14 12:45 | MHC.CM.PN ---
CM MET WITH PT AND HER DAUGHTERS IN ICU. PT LIVES WITH DAUGHTERS. DAUGHTER IS HER SURVEY CREW CHIEF 15.5 HOURS SPLIT BI-WEEKLY. PT USES [employer] FOR MOBILITY. HAS HOME 02 AT 2.5 LITERS VIA [employer]. PT WAS ABLE TO NAME A HCP , COMPLETED AND ADDED TO CHART. PCP DR. SILVA DP: HOME, PT CURRENTLY DECLINES [facility], WOULD LIKE TO GO TO OP P.T. PT IS AGREEABLE TO A EC REFERRAL FOR ADDED SUPPORT. PT HAS OWN RIDE HOME. CM WILL CONTINUE TO FOLLOW FOR ANY CHANGE TO DC PLAN/NEEDS.
--- NOTE | 2024-01-14 13:17 | PC.NURSE ---
Assumed care at 0700- Pt. drowsy but arousable to vocal stimuli, holding short conversations before falling back to sleep. AOx4. Pt. scheduled for surgery at 0800, family at bedside at 0715, pt awake and talking with family. HR 50s-70s, MAPs sustaining >60 on dopamine gtt. MAP goal >60 and HR goal >45 as specified per energy sales broker. O2 >92% on RA. Avasys camera monitoring in place for safety. Pt. back to OR from ICU at approx 0945. Pt. yelling and loudly moaning in pain, stating My knee is burning, make it stop! . Pt. medicated PRN dilaudid 1mg by anesthsia at approx. 0930 per anesthesiologist. Upon return to ICU, pt. SBP 160s-180s, HR sustaining 70s-80s- dopamine paused by anesthesia. Pt. medicated with methadone, PRN oxycodone, and IV tylenol for comfort- See EMAR. Hot pack placed on left knee for comfort. at approx 1130 family arrived to bedside, updated by energy sales broker and this RN. pt. awake and sitting upright, eating lunch and talking with family, stating to this RN that her pain has decreased. Family departed at approx 1230, stating pt. is sleepy and should rest . Upon assessment, pt. extremely drowsy, waking to verbal stimuli but very quickly falling back to sleep, unable to hold conversation. Pt. sitting upright and falling asleep forward into lunch tray. HR sustaining 40s-50s, SBPs 80s-90s with MAPs 55-65. O2 >92% on RA, RR 12, respirations easy and unlabored. MD notified and called to bedside to visualize drowsy state of pt. Dopamine gtt restarted and titrated per EMAR. Nursing supervisor cap and hat production and VMT staff made aware in change of patient behavior. Only patient belongings found at the bedside by this RN is cell phone and cottonseed meat presser. Currently, pt. VS HR 49, BP 103/47, RR 15, O2 94% on RA. Pt. resting in bed with eyes closed. [employer] camera monitoring system remains in place, bed locked and in lowest position with bed alarm armed. Care ongoing at this time.
[2024-01-14] MEDS: 0.9 % Sodium Chloride Flush 3 ML SYRINGE IVFLUSH (16:13)
[2024-01-14 16:53] LABS: Glucose, Whole Blood 173 mg/dL (60-115)
[2024-01-14 19:51] LABS: Hematocrit 35.7 % (37.0-47.0); Hemoglobin 11.3 g/dl (12.0-16.0); Mean Corpuscular HGB Conc 31.7 g/dl (31.0-35.0); Mean Corpuscular Hemoglobin 26.8 pg (27.0-33.0); Mean Corpuscular Volume 84.8 fL (80.0-98.0); Mean Platelet Volume 8.9 fL (9.4-12.3); Platelet Count 291 X10*3/uL (160-400); Red Blood Count 4.21 X10*6/uL (4.20-5.50); Red Cell Distribution Width 15.6 % (11.0-16.0); White Blood Count 7.9 X10*3/uL (4.8-10.8)
[2024-01-14 20:11] LABS: Albumin Level 3.1 g/dL (3.5-5.0); Anion Gap 11 (12-20); Blood Urea Nitrogen 10 mg/dL (9-16); Carbon Dioxide 26 mmol/L (22-29); Chloride 111 mmol/L (96-108); Creatinine Clr Calc Pharmacy 90.8; Estimated Glomerular Filt Rate > 60; Glucose Random 90 mg/dL (60-115); Magnesium 1.8 mg/dL (1.6-2.6); Potassium 3.6 mmol/L (3.3-5.1); Sodium 144 mmol/L (135-145)
[2024-01-14] MEDS: Albumin Human 25 % 100 ML IV (21:12)
[2024-01-14] MEDS: Potassium Chloride Packet 20 MEQ PACKET 40 MEQ PO (21:16)
[2024-01-14 21:33] LABS: Vancomycin Random 6.2 mcg/mL (15-20)
--- NOTE | 2024-01-14 21:57 | HE.PHANOTE ---
Re: Vanco Patient's renal function has improved. Trough returned at 6.2 mg/L. Dose increased to 1,000mg Q12H with a predicted AUC of 530 mg/L, and trough 14.7. Next trough to be drawn at 01/14 at 2100.
[2024-01-14] MEDS: LORazepam 1 MG TABLET PO (22:25)
[2024-01-14] MEDS: vancomycin HCL 1,000 MG in 0.9 % Sodium Chloride 250 ML 270 MG IV (22:32)
[2024-01-14 23:55] LABS: Glucose, Whole Blood 106 mg/dL (60-115)
[2024-01-15] VITALS (28 sets, daily range): BP systolic 90–132; BP diastolic 44–88; PULSE 46–74; RESP 12–23; TEMP 36.4–37.2; O2SAT 93–100; BMI 17.3
[2024-01-15] MEDS: DOPamine HCL/D5W 400 MG/250 ML PLAST..BAG 17.18 MG IVCONT (00:15)
[2024-01-15] MEDS: cefEPime HCl 2 GM in 0.9 % Sodium Chloride 50 ML IV ×3 (00:19→15:41)
[2024-01-15] MEDS: 0.9 % Sodium Chloride Flush 3 ML SYRINGE IVFLUSH ×2 (00:22→08:14)
[2024-01-15] MEDS: Albumin Human 25 % 100 ML IV ×3 (03:04→14:06)
[2024-01-15] MEDS: oxyCODONE HCl Immed Release 15 MG TABLET 30 MG PO ×4 (03:05→19:59)
[2024-01-15 05:00] LABS: MANUAL DIFF FLAG NO
[2024-01-15 05:01] LABS: Basophils Percent Auto 0.7 % (0-2); Eosinophils Absolute Auto 0.1 X10*3/uL (0.0-0.4); Eosinophils Percent Auto 1.7 % (0-4); Hematocrit 33.7 % (37.0-47.0); Hemoglobin 10.4 g/dl (12.0-16.0); Imm Gran Abs Auto 0.02 X10*3/uL (0.00-0.03); Imm Gran Pct Auto 0.3 % (0.0-0.4); Lymphocytes Absolute Auto 1.6 X10*3/uL (1.2-4.9); Lymphocytes Percent Auto 26.1 % (20-40); Mean Corpuscular HGB Conc 30.9 g/dl (31.0-35.0); Mean Corpuscular Volume 84.3 fL (80.0-98.0); Mean Platelet Volume 8.6 fL (9.4-12.3); Monocytes Absolute Auto 0.6 X10*3/uL (0.1-1.2); Monocytes Percent Auto 9.3 % (2-11); Neutrophils Absolute Auto 3.7 x10*3/uL (2.0-8.3); Neutrophils Percent Auto 61.9 % (45-73); Platelet Count 273 X10*3/uL (160-400); Red Cell Distribution Width 15.5 % (11.0-16.0); White Blood Count 5.9 X10*3/uL (4.8-10.8)
[2024-01-15 05:18] LABS: Anion Gap 13 (12-20); Blood Urea Nitrogen 9 mg/dL (9-16); Calcium 9.5 mg/dL (8.4-10.2); Carbon Dioxide 27 mmol/L (22-29); Chloride 106 mmol/L (96-108); Creatinine Clr Calc Pharmacy 84.4; Estimated Glomerular Filt Rate > 60; Glucose Random 102 mg/dL (60-115); Magnesium 1.9 mg/dL (1.6-2.6); Phosphorus 3.1 mg/dL (2.7-4.5); Potassium 3.5 mmol/L (3.3-5.1); Sodium 142 mmol/L (135-145)
--- NOTE | 2024-01-15 07:41 | PM.PNORT ---
Subjective Subjective Date of Service: 01/15/24 Principal diagnosis: Septic left knee Interval history: The patient is seen sleeping in bed this morning. Upon waking she reports moderate discomfort in her left knee. She has been out of bed with assistance to the bedside commode. Physical Exam Vital Signs: Vital Signs: Last Vital Signs Temp 98.7 F 01/15/24 04:00 Pulse 55 01/15/24 07:00 Resp 19 01/15/24 07:00 BP 132/63 01/15/24 07:00 Pulse Ox 95 01/15/24 07:00 O2 Del Method Room Air 01/15/24 07:00 O2 Flow Rate 1 01/14/24 03:00 BMI result Body Mass Index 17.3 Extrem: Other: Left lower extremity examination shows that the surgical dressing is intact, no drainage, moderate discomfort with range of motion Procedures Date of Service Date of Service: 01/15/24 Progress Note: A&P Assessment and plan (1) Septic joint of left knee joint: Status: Acute Assessment and Plan: Ms. Duque is doing fairly well after undergoing washout of her septic left knee yesterday. The patient can continue activities as tolerated. Continue pain management as per the medical service. Infectious disease service consulted for antibiotic recommendation. Will recheck labs in a.m. Will follow. Quality Stroke Does the patient have a stroke diagnosis?: No VTE Prior VTE?: No VTE Risk Level:: Medical - moderate - high VTE Device Contraindication: N/A - Device Ordered VTE Drug Contraindication: Treatment Not Indicated
[2024-01-15] MEDS: Potassium Chloride ER 20 MEQ TAB.ER.PRT 40 MEQ PO (08:12)
[2024-01-15] MEDS: methADONE HCl 20 MG/2 ML ORAL.CONC 100 MG PO (08:14)
--- NOTE | 2024-01-15 09:44 | P.PNCC_ITS ---
Subjective Subjective Date of Service: 01/15/24 Interval History: 53-year-old lady with underlying COPD, history of gastric bypass, recurrent hypoglycemia, chronic pain on methadone, cocaine abuse admitted on 01/13/2024 with left knee pain with left knee aspiration suggestive of septic joint, further complicated by septic shock with bradycardia requiring pressor support. Patient is status post arthroscopic washout on 01/14/2024 by Orthopedic surgery. No events overnight. Pressor requirements are improving. Critical Care Time (minutes): 60 Physical Exam 2 Vital Signs: Vital Signs: Last Vital Signs Temp 97.6 F 01/15/24 08:00 Pulse 56 01/15/24 09:00 Resp 14 01/15/24 09:00 BP 105/47 L 01/15/24 09:00 Pulse Ox 94 01/15/24 09:00 O2 Del Method Room Air 01/15/24 09:00 O2 Flow Rate 1 01/14/24 03:00 BMI result Body Mass Index 17.3 Const: General: no acute distress, alert and awake Eyes: Sclerae: sclerae normal EOM: EOMs intact bilaterally Neck: Neck: Yes no lymphadenopathy, Yes trachea midline and Yes supple Resp: Effort & Inspection: normal respiratory effort and no respiratory distress Auscultation: clear to auscultation bilaterally Cardio: Rate: regular rate Rhythm: regular rhythm Heart sounds: no gallops, no murmurs and no rubs GI: Palpation (GI): Soft to palpation and Other GI palpation findings present ( Nontender) Auscultation: normal bowel sounds Extrem: General: Yes no pedal edema, No clubbing, No cyanosis and Yes other (Left knee swollen and tender to pressure) Objective Data Labs 01/15/24 04:36 01/15/24 04:36 Labs: Laboratory Results - last 24 hr 01/14/24 01/14/24 01/14/24 16:50 19:23 21:10 WBC 7.9 RBC 4.21 Hgb 11.3 L Hct 35.7 L MCV 84.8 MCH 26.8 L MCHC 31.7 RDW 15.6 Plt Count 291 MPV 8.9 L Immature Gran % (Auto) Neut % (Auto) Lymph % (Auto) [place] % (Auto) Eos % (Auto) Baso % (Auto) Lymph # (Auto) [place] # (Auto) Eos # (Auto) Baso # (Auto) Abs Immat Gran (auto) Absolute Neuts (auto) Absolute Nucleated RBC 0.000 Nucleated RBC % (auto) 0.0 Sodium 144 Potassium 3.6 Chloride 111 H Carbon Dioxide 26 Anion Gap 11 L BUN 10 Creatinine 0.53 Estim Creat Clear Calc 90.8 Estimated GFR > 60 POC Glucose 173 H Random Glucose 90 Calcium 9.0 Phosphorus 3.0 Magnesium 1.8 Albumin 3.1 L Random Vancomycin 6.2 L 01/14/24 01/15/24 23:51 04:36 WBC 5.9 RBC 4.00 L Hgb 10.4 L Hct 33.7 L MCV 84.3 MCH 26.0 L MCHC 30.9 L RDW 15.5 Plt Count 273 MPV 8.6 L Immature Gran % (Auto) 0.3 Neut % (Auto) 61.9 Lymph % (Auto) 26.1 [place] % (Auto) 9.3 Eos % (Auto) 1.7 Baso % (Auto) 0.7 Lymph # (Auto) 1.6 [place] # (Auto) 0.6 Eos # (Auto) 0.1 Baso # (Auto) 0.0 Abs Immat Gran (auto) 0.02 Absolute Neuts (auto) 3.7 Absolute Nucleated RBC 0.000 Nucleated RBC % (auto) 0.0 Sodium 142 Potassium 3.5 Chloride 106 Carbon Dioxide 27 Anion Gap 13 BUN 9 Creatinine 0.57 Estim Creat Clear Calc 84.4 Estimated GFR > 60 POC Glucose 106 Random Glucose 102 Calcium 9.5 Phosphorus 3.1 Magnesium 1.9 Albumin 4.0 Random Vancomycin Microbiology Microbiology Results: Microbiology 01/14/24 Unknown Knee,Left Gram Stain - Final 01/14/24 Unknown Knee,Left Routine Culture - Preliminary No growth to date. 01/14/24 Unknown Knee,Left Anaerobic Culture - Preliminary No growth to date. 01/13/24 08:54 Knee aspirate Gram Stain - Final 01/13/24 08:54 Knee aspirate Anaerobic Culture - Preliminary No growth to date. 01/13/24 08:54 Knee aspirate Gross Specimen Examination - Final 01/13/24 08:54 Knee aspirate Fluid Crystals - Final 01/13/24 08:54 Knee aspirate Joint Fluid Culture - Final No growth after 2 days 01/13/24 08:09 Blood - Venous Blood Culture - Preliminary No growth after 24 hours. 01/13/24 07:41 Blood - Venous Blood Culture - Preliminary No growth after 24 hours. Progress Note: A&P Assessment and plan (1) Septic joint of left knee joint: Status: Acute (2) Cocaine use: Status: Acute (3) Methadone maintenance therapy patient: Status: Acute Plan Assessment: 53-year-old lady with underlying cocaine abuse admitted with septic shock likely secondary to left knee septic joint Plan: Neuro: No acute issues. Cardiac: Septic shock, continue to titrate off pressor support as tolerated. Pulmonary: No acute issues. Renal: No acute issues. Endo: No acute issues. GI: No acute issues. ID: Likely left knee septic joint, empirically covered with broad-spectrum antibiotics. Status post arthroscopic washout on 01/14/2024. Orthopedic surgery service care appreciated. Heme/Onc: No acute issues. Psych: No acute issues. Miscellaneous: No acute issues. Prophylaxis: Compression devices Diet: Regular Critical care time spent: 60 minutes Quality Stroke Does the patient have a stroke diagnosis?: No VTE Prior VTE?: No VTE Risk Level:: Medical - moderate - high VTE Device Contraindication: N/A - Device Ordered VTE Drug Contraindication: Treatment Not Indicated
--- NOTE | 2024-01-15 10:01 | MHC.CLN ---
PT IS MODERATELY MALNOURISHED PT WITH MILDLY DEPLETED SUBCUTANEOUS FAT AND MUSCLE MASS WITH BMI OF 17 WITH ACTIVE COCAINE ABUSE AND HX GASTRIC BYPASS DIET RX: REGULAR-APPROPRIATE RECOMMEND ADDING ENSURE BID TO INCREASE KCALS AND PROMOTE WT GAIN SUPP TO PROVIDE 700KCALS, 40G PROTEIN MONITOR PO INTAKE AND ENCOURAGE SUPPLEMENTS SEE ALSO FULL CLINICAL NUTRITION ASSESSMENT
[2024-01-15] MEDS: vancomycin HCL 1,000 MG in 0.9 % Sodium Chloride 250 ML 270 MG IV (10:59)
[2024-01-15] MEDS: Acetaminophen 325 MG TABLET 650 MG PO (11:06)
[2024-01-15] MEDS: Ondansetron ODT 4 MG TAB.RAPDIS TRANSLINGU (11:09)
[2024-01-15 11:40] LABS: Glucose, Whole Blood 88 mg/dL (60-115)
[2024-01-15] MEDS: DOPamine HCL/D5W 400 MG/250 ML PLAST..BAG 12.89 MG IVCONT (15:41)
[2024-01-15 17:35] LABS: Glucose, Whole Blood 186 mg/dL (60-115)
[2024-01-15 17:43] LABS: Lyme Abs Screen <0.90 index
[2024-01-15 21:29] LABS: Vancomycin Random 9.1 mcg/mL (15-20)
[2024-01-15] MEDS: LORazepam 1 MG TABLET PO (21:52)
[2024-01-15] MEDS: vancomycin HCL 1,500 MG in 0.9 % Sodium Chloride 500 ML 333.33 MG IV (23:04)
[2024-01-15 23:22] LABS: Glucose, Whole Blood 108 mg/dL (60-115)
[2024-01-16] VITALS (35 sets, daily range): BP systolic 81–160; BP diastolic 32–78; PULSE 45–88; RESP 10–25; TEMP 36.6–37.2; O2SAT 92–100
[2024-01-16] MEDS: 0.9 % Sodium Chloride Flush 3 ML SYRINGE IVFLUSH ×3 (00:24→16:44)
[2024-01-16] MEDS: oxyCODONE HCl Immed Release 15 MG TABLET 30 MG PO ×5 (00:24→21:53)
[2024-01-16] MEDS: cefEPime HCl 2 GM in 0.9 % Sodium Chloride 50 ML IV ×3 (00:43→16:44)
[2024-01-16 05:47] LABS: VBG Base Excess 4.8 mmol/L; VBG HCO3 30 mmol/L (22-26); VBG pCO2 46 mmHg; VBG pH 7.41 (7.32-7.43); VBG pO2 45 mmHg
[2024-01-16 05:47] LABS: MANUAL DIFF FLAG NO
[2024-01-16 05:49] LABS: Basophils Absolute Auto 0.1 X10*3/uL (0.0-0.2); Basophils Percent Auto 1.1 % (0-2); Eosinophils Absolute Auto 0.1 X10*3/uL (0.0-0.4); Eosinophils Percent Auto 2.5 % (0-4); Hematocrit 37.5 % (37.0-47.0); Hemoglobin 11.7 g/dl (12.0-16.0); Imm Gran Abs Auto 0.01 X10*3/uL (0.00-0.03); Imm Gran Pct Auto 0.2 % (0.0-0.4); Lymphocytes Absolute Auto 1.7 X10*3/uL (1.2-4.9); Lymphocytes Percent Auto 30.7 % (20-40); Mean Corpuscular HGB Conc 31.2 g/dl (31.0-35.0); Mean Corpuscular Hemoglobin 26.8 pg (27.0-33.0); Mean Corpuscular Volume 85.8 fL (80.0-98.0); Mean Platelet Volume 8.7 fL (9.4-12.3); Monocytes Absolute Auto 0.5 X10*3/uL (0.1-1.2); Monocytes Percent Auto 9.6 % (2-11); Neutrophils Absolute Auto 3.1 x10*3/uL (2.0-8.3); Neutrophils Percent Auto 55.9 % (45-73); Platelet Count 266 X10*3/uL (160-400); Red Blood Count 4.37 X10*6/uL (4.20-5.50); Red Cell Distribution Width 15.6 % (11.0-16.0); White Blood Count 5.5 X10*3/uL (4.8-10.8)
[2024-01-16 06:17] LABS: Albumin Level 4.3 g/dL (3.5-5.0); Anion Gap 13 (12-20); Blood Urea Nitrogen 9 mg/dL (9-16); C Reactive Protein 2.34 mg/dL (< or = 0.50); Calcium 9.7 mg/dL (8.4-10.2); Carbon Dioxide 25 mmol/L (22-29); Chloride 106 mmol/L (96-108); Creatinine Clr Calc Pharmacy 75.1; Estimated Glomerular Filt Rate > 60; Glucose Random 122 mg/dL (60-115); Phosphorus 3.5 mg/dL (2.7-4.5); Potassium 4.1 mmol/L (3.3-5.1); Sodium 140 mmol/L (135-145)
[2024-01-16 06:17] LABS: Venous Blood Gas Refer to POC result
--- NOTE | 2024-01-16 07:00 | CA_ITS ---
Transthoracic Echocardiogram Patient (Last, First, Middle): Jeanna Duque, Gender: Female Date of : 1970 Age: 53 Procedure Date: 01/16/2024 Procedure Type: Transthoracic Echocardiogram Location: ICU Height: 162.56 cm Weight: 45.36 kg BSA: 1.46 m2 Heart Rate: bpm BP: 132 / 63 mmHg [place] [employer]: Referring MD: Cammy Hood MD Symptoms: Bradycardia, Please Assess Function and Any WM Abn Study Quality: Fair ECG Rhythm: Sinus Conclusions: - The left ventricular systolic function is normal. The visually estimated ejection fraction is between 65-70%. - No obvious valvular pathology seen on this study. Findings Left Ventricle Normal left ventricular cavity size. There is normal left ventricular wall thickness. The left ventricular systolic function is normal. The visually estimated ejection fraction is between 65-70%. There is no evidence of regional wall motion abnormalities. Diastolic function is normal for age. Right Ventricle Normal right ventricular cavity size and systolic function. Atria Both atria are normal in size. Aortic Valve The aortic valve structure and function is likely normal. There is no aortic valve stenosis. There is no aortic valve regurgitation. Mitral Valve The mitral valve appears normal. There is no mitral valve regurgitation. There is no mitral valve stenosis. Pulmonic Valve The pulmonic valve is likely normal. Tricuspid Valve Normal tricuspid valve structure. There is trace tricuspid valve regurgitation. There is no evidence of pulmonary hypertension. Great Vessels The asc aorta is normal in size. Venous The inferior vena cava is normal in size and collapses greater than 50% with inspiration. Pericardium/Pleural There is no evidence of pericardial effusion. Prior Study Comparison No prior study available for comparison. Recommendations, Care & Conclusions No obvious valvular pathology seen on this study. Measurements 2D Linear Measurements IVSd: 0.94 0.6-0.9/0.6-1.0 cm LVIDd: 5.05 3.9-5.3/4.2-5.9 cm LVIDd Index: 3.46 2.4-3.2/2.2-3.1 cm/m2 LVIDs: 2.71 2.0-3.6 cm LVPWd: 0.85 0.7-1.1 cm Ao Root: 2.70 2.1-3.5 cm LA Diam: 3.40 2.7-3.8/3.0-4.0 cm LAIDs Index: 2.33 1.5-2.3 cm/m2 LV Mass: 199.17 67-162/88-224 g LV Mass Index: 136.42 43-95/49-115 g/m2 LVOT Diam: 2.10 3.0+(-)1.3 cm 2D Systolic Function EF 4C: 68.70 >55% EF 2C: 80.70 >55% EF BiP: 73.40 >55% Mitral Valve MV Pk E: 0.88 MV PK A: 0.71 MV Decel Time: 296.00 E/A: 1.20 E'Lateral: 11.70 E'Medial: 10.00 E/E' Med: 8.80 E/E' Lat: 7.50 PHT: 87.00 MVA PHT: 2.53 Decel [place]: 2.98 Aortic Valve AoV Pk Clifford: 1.57 AoV Mn Clifford: 1.14 AoV VTI: 0.36 AoV Pk Grad: 10.00 Aov Mn Grad: 6.00 SPENCER Cont.VTI: 2.06 LVOT LVOT Pk Clifford: 0.82 LVOT Mn Clifford: 0.53 LVOT VTI: 0.21 LVOT Pk Grad: 3.00 LVOT Mn Grad: 1.00 LVOT Diam: 2.10 LVOT Area: 3.46 Diastolic Function MV Pk E: 0.88 MV Pk A: 0.71 E/A: 1.20 E'Medial: 10.00 E/E' Med: 8.80 E' Laterial: 11.70 E/E' Lat: 7.50 Right Ventricle TAPSE (mm): 38.00 Tricuspid Valve TR Pk Clifford: 1.83 TR Pk Grad: 13.00 RA Press: 3.00 RVSP: 16.00 Great Vessels Aorta Ao Root-2D: 2.70 2.0-3.7 cm Ao Asc: 2.80 2.1-3.4 cm Pulmonary Valve PV Pk Clifford: 1.23 Peak PV Grad: 6.00 Updated in Other Vendor System with Status of Final Reji Mayo MD electronically signed on 01/16/2024 12:02:21 PM with status of Final
[2024-01-16] MEDS: Nicotine 14 MG PATCH.TD24 TRANSDERMA (08:15)
[2024-01-16 08:23] LABS: Erythrocyte Sedimentation Rate 21 MM/HR (0-20)
[2024-01-16] MEDS: Ondansetron ODT 4 MG TAB.RAPDIS TRANSLINGU (08:23)
[2024-01-16] MEDS: methADONE HCl 20 MG/2 ML ORAL.CONC 100 MG PO (08:40)
--- NOTE | 2024-01-16 09:54 | P.PNCC_ITS ---
Subjective Subjective Date of Service: 01/16/24 Interval History: 53-year-old lady with underlying COPD, history of gastric bypass, recurrent hypoglycemia, chronic pain on methadone, cocaine abuse admitted on 01/13/2024 with left knee pain with left knee aspiration suggestive of septic joint, further complicated by septic shock with bradycardia requiring pressor support. Patient is status post arthroscopic washout on 01/14/2024 by Orthopedic surgery. No events overnight. Critical Care Time (minutes): 45 Physical Exam 2 Vital Signs: Vital Signs: Last Vital Signs Temp 98.8 F 01/15/24 23:00 Pulse 60 01/16/24 09:19 Resp 18 01/16/24 09:00 BP 108/49 L 01/16/24 09:19 Pulse Ox 92 01/16/24 09:00 O2 Del Method Room Air 01/16/24 09:00 O2 Flow Rate 1 01/14/24 03:00 BMI result Body Mass Index 17.3 Const: General: no acute distress, alert and awake Eyes: Sclerae: sclerae normal EOM: EOMs intact bilaterally Neck: Neck: Yes no lymphadenopathy, Yes trachea midline and Yes supple Resp: Effort & Inspection: normal respiratory effort and no respiratory distress Auscultation: clear to auscultation bilaterally Cardio: Rate: regular rate Rhythm: regular rhythm Heart sounds: no gallops, no murmurs and no rubs GI: Palpation (GI): Soft to palpation and Other GI palpation findings present ( Nontender) Auscultation: normal bowel sounds Extrem: General: Yes no pedal edema, No clubbing and No cyanosis Objective Data Labs 01/16/24 05:35 01/16/24 05:35 Labs: Laboratory Results - last 24 hr 01/13/24 01/15/24 01/15/24 17:04 11:36 17:31 WBC RBC Hgb Hct MCV MCH MCHC RDW Plt Count MPV Immature Gran % (Auto) Neut % (Auto) Lymph % (Auto) [place] % (Auto) Eos % (Auto) Baso % (Auto) Lymph # (Auto) [place] # (Auto) Eos # (Auto) Baso # (Auto) Abs Immat Gran (auto) Absolute Neuts (auto) Absolute Nucleated RBC Nucleated RBC % (auto) ESR VBG pH VBG pCO2 VBG pO2 VBG HCO3 VBG O2 Saturation VBG Base Excess Sodium Potassium Chloride Carbon Dioxide Anion Gap BUN Creatinine Estim Creat Clear Calc Estimated GFR POC Glucose 88 186 H Random Glucose Calcium Phosphorus Magnesium C-Reactive Protein Albumin Random Vancomycin Lyme Screen IgG & IgM <0.90 01/15/24 01/15/24 01/16/24 20:57 23:19 05:35 WBC 5.5 RBC 4.37 Hgb 11.7 L Hct 37.5 MCV 85.8 MCH 26.8 L MCHC 31.2 RDW 15.6 Plt Count 266 MPV 8.7 L Immature Gran % (Auto) 0.2 Neut % (Auto) 55.9 Lymph % (Auto) 30.7 [place] % (Auto) 9.6 Eos % (Auto) 2.5 Baso % (Auto) 1.1 Lymph # (Auto) 1.7 [place] # (Auto) 0.5 Eos # (Auto) 0.1 Baso # (Auto) 0.1 Abs Immat Gran (auto) 0.01 Absolute Neuts (auto) 3.1 Absolute Nucleated RBC 0.000 Nucleated RBC % (auto) 0.0 ESR 21 H VBG pH VBG pCO2 VBG pO2 VBG HCO3 VBG O2 Saturation VBG Base Excess Sodium 140 Potassium 4.1 Chloride 106 Carbon Dioxide 25 Anion Gap 13 BUN 9 Creatinine 0.64 Estim Creat Clear Calc 75.1 Estimated GFR > 60 POC Glucose 108 Random Glucose 122 H Calcium 9.7 Phosphorus 3.5 Magnesium 2.0 C-Reactive Protein 2.34 H Albumin 4.3 Random Vancomycin 9.1 L Lyme Screen IgG & IgM 01/16/24 05:38 WBC RBC Hgb Hct MCV MCH MCHC RDW Plt Count MPV Immature Gran % (Auto) Neut % (Auto) Lymph % (Auto) [place] % (Auto) Eos % (Auto) Baso % (Auto) Lymph # (Auto) [place] # (Auto) Eos # (Auto) Baso # (Auto) Abs Immat Gran (auto) Absolute Neuts (auto) Absolute Nucleated RBC Nucleated RBC % (auto) ESR VBG pH 7.41 VBG pCO2 46 VBG pO2 45 VBG HCO3 30 H VBG O2 Saturation 74.0 VBG Base Excess 4.8 Sodium Potassium Chloride Carbon Dioxide Anion Gap BUN Creatinine Estim Creat Clear Calc Estimated GFR POC Glucose Random Glucose Calcium Phosphorus Magnesium C-Reactive Protein Albumin Random Vancomycin Lyme Screen IgG & IgM Microbiology Microbiology Results: Microbiology 01/14/24 Unknown Knee,Left Gram Stain - Final 01/14/24 Unknown Knee,Left Routine Culture - Final No growth after 2 days 01/14/24 Unknown Knee,Left Anaerobic Culture - Preliminary No growth to date. 01/13/24 08:09 Blood - Venous Blood Culture - Preliminary No growth after 48 hours. 01/13/24 07:41 Blood - Venous Blood Culture - Preliminary No growth after 48 hours. 01/13/24 08:54 Knee aspirate Gram Stain - Final 01/13/24 08:54 Knee aspirate Anaerobic Culture - Preliminary No growth to date. 01/13/24 08:54 Knee aspirate Gross Specimen Examination - Final 01/13/24 08:54 Knee aspirate Fluid Crystals - Final 01/13/24 08:54 Knee aspirate Joint Fluid Culture - Final No growth after 2 days Progress Note: A&P Assessment and plan (1) Septic joint of left knee joint: Status: Acute (2) Cocaine use: Status: Acute (3) Methadone maintenance therapy patient: Status: Acute (4) Sinus bradycardia: Status: Acute Plan Assessment: 53-year-old lady with underlying cocaine abuse admitted with septic shock likely secondary to left knee septic joint Plan: Neuro: No acute issues. Cardiac: Septic shock, continue to titrate off pressor support as tolerated. Pulmonary: No acute issues. Renal: No acute issues. Endo: No acute issues. GI: No acute issues. ID: Likely left knee septic joint, empirically covered with broad-spectrum antibiotics. Status post arthroscopic washout on 01/14/2024. Orthopedic surgery service care appreciated. Heme/Onc: No acute issues. Psych: No acute issues. Miscellaneous: No acute issues. Prophylaxis: Compression devices Diet: Regular Critical care time spent: 45 minutes Quality Stroke Does the patient have a stroke diagnosis?: No VTE Prior VTE?: No VTE Risk Level:: Medical - moderate - high VTE Device Contraindication: N/A - Device Ordered VTE Drug Contraindication: Treatment Not Indicated
[2024-01-16 09:56] LABS: Vancomycin Random 12.7 mcg/mL (15-20)
--- NOTE | 2024-01-16 10:03 | HE.PHANOTE ---
RE:vanco Level on 01/15 came back at 12.7 mg/L. Changed dose to 750mg Q8H with predicted trough of 12.5 mg/L, AUC of 474. Any dose choice higher than this is >20mg/kg dosing and is predicting a supratherapeutic AUC prediction but trough within range, may have to increase dose and be mindful of any changes in renal function. next level to be drawn after 3 doses on 01/16 @0900
[2024-01-16] MEDS: vancomycin HCL 500 MG in 0.9 % Sodium Chloride 100 ML 110 MG IV ×2 (10:46→18:14)
[2024-01-16] MEDS: DOPamine HCL/D5W 400 MG/250 ML PLAST..BAG 12.03 MG IVCONT (10:46)
--- NOTE | 2024-01-16 11:34 | P.CDIM_ITS ---
PROVIDER RESPONSE TEXT: To clarify, the appropriate diagnosis supported by the clinical indicators: Moderate malnutrition is/was present and is a clinical diagnosis QUERY TEXT: PHYSICIAN'S DOCUMENTATION REQUEST Date of Query: 01/16/2024 09:56 AM EDT Patient Name: Jeanna Duque Admit Date: 01/13/2024 Dear Kraig Payne, A review of the medical record indicates additional documentation may be needed. Please review below and update the documentation accordingly. Documentation includes the diagnosis of moderately malnourished. Additional clinical indicators from the record include: Per Clinical Nutrition Assessment 01/15/24: Patient with mildly depleted subcutaneous fat and muscle mass with BMI of 17 with active cocaine abus e and history gastric bypass Recommend adding Ensure BID To ensure the quality of the medical record, based on the above information and the recognized standa rd for moderate malnutrition, could you please verify which of the following diagnoses best reflects the patient's nu tritional status. Moderate malnutrition is/was present and is a clinical diagnosis No nutritional deficiency Other (explain) Clinically unable to determine (explain) Thank you, Marita Stallworth RN Use of terms such as suspected, likely, concern for, or probable (associated with a specific diagnosi s that is being evaluated, monitored, or treated as if it exists) are acceptable and can be coded in the inpatient se tting, when documented at the time of discharge. Please use your independent medical judgment in providing your response. THIS QUERY IS PART OF THE PERMANENT MEDICAL RECORD
--- NOTE | 2024-01-16 11:54 | P.CNID_ITS ---
History of Present Illness Data of Consult Service Date: 01/15/24 Requesting physician: Kraig Payne Primary Care Provider: Wander Tang DO, MD HPI Reason for consult: left septic knee concern She presents on 01/12 with left knee pain for two days. She had hypotension and is on Dopamine. She takes Methadone 100 mg daily as well as uses cocaine. Knee NG so far. Review of Systems 2 Musculoskeletal: Musculoskeletal: Reports arthralgias PMFSH Family History Family history: reviewed and not pertinent Social History Social History Household Members: Family Housing: House Do you presently have visiting nurse or other home services: No Patient Tobacco Use Status: Tobacco use Unknown Substance Use Type: Crack/Cocaine service: No Meds Allergies Allergy/AdvReac Type Severity Reaction Status Date / Time codeine AdvReac Rash Verified 01/13/24 06:15 Active Medications: Current Medications Acetaminophen (Acetaminophen 325 Mg Tablet) 650 mg PO Q6H PRN PRN Reason: Fever >100.4 Last Admin: 01/15/24 11:06 Dose: 650 mg Cefepime HCl 2 gm/ Sodium (Chloride) 50 mls @ 100 mls/hr IV Q8H [facility] Last Infusion: 01/16/24 09:21 Dose: Infused Dopamine HCl/Dextrose (Dopamine Hcl/D5w) 400 mg in 250 mls @ 0 mls/hr IVCONT .Q0M NICHO; Protocol Last Titration: 01/16/24 11:04 Dose: 6.8 mcg/kg/min, 11.68 mls/hr Vancomycin HCl 500 mg/ Sodium (Chloride) 110 mls @ 110 mls/hr IV Q8H [facility] Last Admin: 01/16/24 10:46 Dose: 110 mls/hr Lorazepam (Lorazepam 1 Mg Tablet) 1 mg PO BEDTIME PRN PRN Reason: Anxiety Last Admin: 01/15/24 21:52 Dose: 1 mg Methadone HCl (Methadone Hcl 20 Mg/2 Ml Oral.Conc) 100 mg PO DAILY [facility] Last Admin: 01/16/24 08:40 Dose: 100 mg Nicotine (Nicotine 14 Mg Patch.Td24) 14 mg TRANSDERMA DAILY [facility] Last Admin: 01/16/24 08:15 Dose: 14 mg Ondansetron HCl (Ondansetron Odt 4 Mg Tab.Rapdis) 4 mg TRANSLINGU Q8H PRN PRN Reason: Nausea and Vomiting Last Admin: 01/16/24 08:23 Dose: 4 mg Oxycodone HCl (Oxycodone Hcl Immed Release 15 Mg Tablet) 30 mg PO Q4H PRN PRN Reason: Pain, Severe (Pain Scale 7-10) Last Admin: 01/16/24 05:29 Dose: 30 mg Pharmacy Consult (Consult Rx Vancomycin Dosing) 1 each MISCELLANE DAILY PRN PRN Reason: Consult order Sodium Chloride (0.9 % Sodium Chloride Flush 3 Ml Syringe) 3 ml IVFLUSH QSHIFT NICHO Last Admin: 01/16/24 08:30 Dose: 3 ml Home Medications ?Medication ?Instructions ?Recorded ?Confirmed ?Last Taken ?Type acetaminophen 500 mg tablet 500 mg PO Q6H PRN Pain 01/13/24 01/13/24 Unknown History methadone 10 mg/mL oral concentrate 100 mg PO DAILY 01/13/24 01/14/24 01/13/24 04:00 History Physical Exam 2 Vital Signs: Vital Signs: Last Vital Signs Temp 97.8 F 01/16/24 11:00 Pulse 62 01/16/24 11:04 Resp 15 01/16/24 11:00 BP 117/65 01/16/24 11:04 Pulse Ox 97 01/16/24 11:00 O2 Del Method Room Air 01/16/24 11:00 O2 Flow Rate 1 01/14/24 03:00 BMI result Body Mass Index 17.3 Const: General: cooperative HEENT: Head: Yes normal to inspection Face and sinus: Yes normal facial exam Mouth: Normal oral and palatal mucosa present Teeth and gingiva: d entition normal Eyes: General: appearance normal, both eyes and all related structures P upils: Equal, round and reactive pupils present Resp: Effort & Inspection: normal respiratory effort Cardio: Rate: regular rate Rhythm: regular rhythm GI: Palpation (GI): Soft to palpation and nontender : General: Yes no CVA tenderness Back/Spine/Pelvis: Back: no CVA tenderness Skin: General skin exam: no rashes or lesions noted Neuro: General: moves all extremities Cranial nerves: Yes Equal, round and reactive pupils present Extrem: Other: left knee swelling,not hot Psych: Appearance: grossly normal Results Labs 01/16/24 05:35 01/16/24 05:35 Labs: Short CBC 01/16/24 Range/Units 05:35 WBC 5.5 (4.8-10.8) X10*3/uL Hgb 11.7 L (12.0-16.0) g/dl Hct 37.5 (37.0-47.0) % Plt Count 266 (160-400) X10*3/uL BMP 01/16/24 05:35 Sodium 140 Potassium 4.1 Chloride 106 Carbon Dioxide 25 BUN 9 Creatinine 0.64 Calcium 9.7 Liver Function 01/16/24 Range/Units 05:35 Albumin 4.3 (3.5-5.0) g/dL Microbiology Microbiology Results: Microbiology 01/14/24 Unknown Knee,Left Gram Stain - Final 01/14/24 Unknown Knee,Left Routine Culture - Final No growth after 2 days 01/14/24 Unknown Knee,Left Anaerobic Culture - Preliminary No growth to date. 01/13/24 08:09 Blood - Venous Blood Culture - Preliminary No growth after 48 hours. 01/13/24 07:41 Blood - Venous Blood Culture - Preliminary No growth after 48 hours. 01/13/24 08:54 Knee aspirate Gram Stain - Final 01/13/24 08:54 Knee aspirate Anaerobic Culture - Preliminary No growth to date. 01/13/24 08:54 Knee aspirate Gross Specimen Examination - Final 01/13/24 08:54 Knee aspirate Fluid Crystals - Final 01/13/24 08:54 Knee aspirate Joint Fluid Culture - Final No growth after 2 days Assessment and Plan (1) Septic joint of left knee joint: Status: Acute Plan There are no organisms so far. She is on Cefepime and Vancomycin. There is concern over Lyme disease. Less likely HIV as can have arthritic effects. Hypotension? adrenal insufficiency. Suggest Continue Cefepime and Vancomycin for now. If nothing grows and Lyme negative possible Ceftriaxone and Vancomycin for three weeks or so as WBC elevated 59,000 in knee ,95% lymph,possible longstanding infection. Check HIV test and cortisol level and await Lyme .
[2024-01-16 12:27] LABS: Glucose, Whole Blood 89 mg/dL (60-115)
--- NOTE | 2024-01-16 13:34 | MHC.CM.PN ---
Pt is being weaned off Dopamine gtt in preparation of transfer to the [facility] floor. Original d/c plan was for a return to home w/existing [employer]/family support and [employer]. Referred to NA should she require skilled RN assessments and home PT. Family to transport to home. CM to follow.
[2024-01-16 17:36] LABS: Glucose, Whole Blood 53 mg/dL (60-115)
[2024-01-16 17:36] LABS: Glucose, Whole Blood 52 mg/dL (60-115)
[2024-01-16] MEDS: Dextrose 10 % 250 ML 750 ML IVCONT (17:39)
[2024-01-16 18:14] LABS: Glucose, Whole Blood 180 mg/dL (60-115)
[2024-01-16 19:06] LABS: Glucose, Whole Blood 103 mg/dL (60-115)
[2024-01-16 21:07] LABS: Glucose, Whole Blood 96 mg/dL (60-115)
[2024-01-16] MEDS: Midodrine HCl 5 MG TABLET PO (21:53)
[2024-01-16] MEDS: LORazepam 1 MG TABLET PO (23:34)
[2024-01-16 23:35] LABS: Glucose, Whole Blood 132 mg/dL (60-115)
[2024-01-17] VITALS (19 sets, daily range): BP systolic 86–131; BP diastolic 46–83; PULSE 56–72; RESP 14–23; TEMP 36.8–37.4; O2SAT 93–98
[2024-01-17] MEDS: 0.9 % Sodium Chloride Flush 3 ML SYRINGE IVFLUSH ×4 (00:33→23:24)
[2024-01-17] MEDS: cefEPime HCl 2 GM in 0.9 % Sodium Chloride 50 ML IV ×3 (00:34→17:16)
[2024-01-17] MEDS: vancomycin HCL 500 MG in 0.9 % Sodium Chloride 100 ML 110 MG IV (02:52)
[2024-01-17] MEDS: oxyCODONE HCl Immed Release 15 MG TABLET 30 MG PO ×4 (04:26→18:46)
[2024-01-17 05:56] LABS: Glucose, Whole Blood 153 mg/dL (60-115)
[2024-01-17] MEDS: methADONE HCl 20 MG/2 ML ORAL.CONC 50 MG PO (08:35)
[2024-01-17] MEDS: Nicotine 14 MG PATCH.TD24 TRANSDERMA (08:41)
--- NOTE | 2024-01-17 09:20 | P.PNCC_ITS ---
Subjective Subjective Date of Service: 01/17/24 Interval History: 53-year-old lady with underlying COPD, history of gastric bypass, recurrent hypoglycemia, chronic pain on methadone, cocaine abuse admitted on 01/13/2024 with left knee pain with left knee aspiration suggestive of septic joint, further complicated by septic shock with bradycardia requiring pressor support. Patient is status post arthroscopic washout on 01/14/2024 by Orthopedic surgery. No events overnight. Titrated off pressor support. Critical Care Time (minutes): 0 Physical Exam 2 Vital Signs: Vital Signs: Last Vital Signs Temp 99.4 F 01/17/24 08:40 Pulse 62 01/17/24 08:40 Resp 17 01/17/24 08:40 BP 94/50 L 01/17/24 08:40 Pulse Ox 98 01/17/24 08:40 O2 Del Method Room Air 01/17/24 08:40 O2 Flow Rate 1 01/14/24 03:00 BMI result Body Mass Index 17.3 Const: General: no acute distress, alert and awake Eyes: Sclerae: sclerae normal EOM: EOMs intact bilaterally Neck: Neck: Yes no lymphadenopathy, Yes trachea midline and Yes supple Resp: Effort & Inspection: normal respiratory effort and no respiratory distress Auscultation: clear to auscultation bilaterally Cardio: Rate: regular rate Rhythm: regular rhythm Heart sounds: no gallops, no murmurs and no rubs GI: Palpation (GI): Soft to palpation and Other GI palpation findings present ( Nontender) Auscultation: normal bowel sounds Extrem: General: Yes no pedal edema, No clubbing and No cyanosis Objective Data Labs 01/16/24 05:35 01/16/24 05:35 Labs: Laboratory Results - last 24 hr 01/13/24 01/16/24 01/16/24 17:04 09:01 12:23 POC Glucose 89 Random Vancomycin 12.7 L Lyme Progressive Test TNP 01/16/24 01/16/24 01/16/24 17:30 17:32 17:54 POC Glucose 53 L* 52 L* 180 H Random Vancomycin Lyme Progressive Test 01/16/24 01/16/24 01/16/24 19:03 21:03 23:32 POC Glucose 103 96 132 H Random Vancomycin Lyme Progressive Test 01/17/24 05:53 POC Glucose 153 H Random Vancomycin Lyme Progressive Test Microbiology Microbiology Results: Microbiology 01/13/24 08:54 Knee aspirate Gram Stain - Final 01/13/24 08:54 Knee aspirate Anaerobic Culture - Preliminary No growth to date. 01/13/24 08:54 Knee aspirate Gross Specimen Examination - Final 01/13/24 08:54 Knee aspirate Fluid Crystals - Final 01/13/24 08:54 Knee aspirate Joint Fluid Culture - Final No growth after 2 days 01/14/24 Unknown Knee,Left Gram Stain - Final 01/14/24 Unknown Knee,Left Routine Culture - Final No growth after 2 days 01/14/24 Unknown Knee,Left Anaerobic Culture - Preliminary No growth to date. 01/13/24 08:09 Blood - Venous Blood Culture - Preliminary No growth after 48 hours. 01/13/24 07:41 Blood - Venous Blood Culture - Preliminary No growth after 48 hours. Progress Note: A&P Assessment and plan (1) Methadone maintenance therapy patient: Status: Acute (2) Cocaine use: Status: Acute (3) Septic joint of left knee joint: Status: Acute Plan Assessment: 53-year-old lady with underlying cocaine abuse admitted with septic shock likely secondary to left knee septic joint Plan: Neuro: No acute issues. Cardiac: Septic shock resolved. Pulmonary: No acute issues. Renal: No acute issues. Endo: No acute issues. GI: No acute issues. ID: Likely left knee septic joint, empirically covered with broad-spectrum antibiotics. Status post arthroscopic washout on 01/14/2024. Orthopedic surgery service care appreciated. Heme/Onc: No acute issues. Psych: No acute issues. Miscellaneous: No acute issues. Prophylaxis: Compression devices Diet: Regular Quality Stroke Does the patient have a stroke diagnosis?: No VTE Prior VTE?: No VTE Risk Level:: Medical - moderate - high VTE Device Contraindication: N/A - Device Ordered VTE Drug Contraindication: Treatment Not Indicated
--- NOTE | 2024-01-17 09:27 | MHC.CLN ---
F/U PT IS MODERATELY MALNOURISHED SEE FULL CLINICAL NUTRITION ASSESSMENT DATED 01/15/24 PO INTAKE 75-100% DIET RX: REGULAR-APPROPRIATE PT RECEIVING ENSURE BID TO INCREASE KCALS AND PROMOTE WT GAIN SUPP PROVIDES 700KCALS, 40G PROTEIN MONITOR PO INTAKE AND ENCOURAGE SUPPLEMENTS
[2024-01-17 09:57] LABS: MANUAL DIFF FLAG NO
[2024-01-17 10:02] LABS: Basophils Percent Auto 0.7 % (0-2); Eosinophils Absolute Auto 0.1 X10*3/uL (0.0-0.4); Eosinophils Percent Auto 2.2 % (0-4); Hematocrit 33.8 % (37.0-47.0); Hemoglobin 10.5 g/dl (12.0-16.0); Imm Gran Abs Auto 0.01 X10*3/uL (0.00-0.03); Imm Gran Pct Auto 0.2 % (0.0-0.4); Lymphocytes Absolute Auto 1.1 X10*3/uL (1.2-4.9); Lymphocytes Percent Auto 20.1 % (20-40); Mean Corpuscular HGB Conc 31.1 g/dl (31.0-35.0); Mean Corpuscular Hemoglobin 26.5 pg (27.0-33.0); Mean Corpuscular Volume 85.4 fL (80.0-98.0); Mean Platelet Volume 8.4 fL (9.4-12.3); Monocytes Absolute Auto 0.5 X10*3/uL (0.1-1.2); Monocytes Percent Auto 9.9 % (2-11); Neutrophils Absolute Auto 3.6 x10*3/uL (2.0-8.3); Neutrophils Percent Auto 66.9 % (45-73); Platelet Count 218 X10*3/uL (160-400); Red Blood Count 3.96 X10*6/uL (4.20-5.50); Red Cell Distribution Width 15.8 % (11.0-16.0); White Blood Count 5.4 X10*3/uL (4.8-10.8)
[2024-01-17 10:09] LABS: Babesia IgG <1:64 titer (<1:64); Babesia IgM <1:20 titer (<1:20)
[2024-01-17 10:16] LABS: Albumin Level 3.9 g/dL (3.5-5.0); Anion Gap 10 (12-20); Blood Urea Nitrogen 12 mg/dL (9-16); Calcium 9.3 mg/dL (8.4-10.2); Carbon Dioxide 29 mmol/L (22-29); Chloride 104 mmol/L (96-108); Creatinine Clr Calc Pharmacy 80.2; Estimated Glomerular Filt Rate > 60; Glucose Random 104 mg/dL (60-115); Phosphorus 3.3 mg/dL (2.7-4.5); Potassium 3.7 mmol/L (3.3-5.1); Sodium 139 mmol/L (135-145)
[2024-01-17 10:17] LABS: Vancomycin Random 9.1 mcg/mL (15-20)
--- NOTE | 2024-01-17 10:28 | HE.PHANOTE ---
RE: vanco dose was entered as 500mg Q8H, trough came back today at 9.1 mg/L; increased to 750mg Q8H with predicted trough of 12.5mg/L, AUC of 473. next level 01/17 @0900
[2024-01-17] MEDS: vancomycin HCL 750 MG in 0.9 % Sodium Chloride 250 ML 265 MG IV ×2 (11:54→20:51)
[2024-01-17 12:13] LABS: Glucose, Whole Blood 332 mg/dL (60-115)
[2024-01-17 17:40] LABS: Glucose, Whole Blood 224 mg/dL (60-115)
[2024-01-17] MEDS: Acetaminophen 325 MG TABLET 650 MG PO (20:28)
[2024-01-17] MEDS: LORazepam 1 MG TABLET PO (20:29)
[2024-01-18] VITALS: BP 101/66; PULSE 59; RESP 20; TEMP 36.1; O2SAT 98
[2024-01-18] MEDS: cefEPime HCl 2 GM in 0.9 % Sodium Chloride 50 ML IV ×4 (00:26→23:12)
[2024-01-18] MEDS: oxyCODONE HCl Immed Release 15 MG TABLET 30 MG PO ×6 (00:27→22:26)
[2024-01-18 02:29] LABS: Lyme PCR Source FLUID, SYNOVIAL; Lyme Synovial Fluid PCR NOT DETECTED (NOT DETECTED)
[2024-01-18 03:21] VITALS: BP 104/52; PULSE 50; RESP 20; TEMP 36.4; O2SAT 100
[2024-01-18] MEDS: Acetaminophen 325 MG TABLET 650 MG PO (03:24)
[2024-01-18] MEDS: vancomycin HCL 750 MG in 0.9 % Sodium Chloride 250 ML 265 MG IV (03:25)
[2024-01-18 06:00] VITALS: BMI 19.1
[2024-01-18 06:38] LABS: MANUAL DIFF FLAG NO
[2024-01-18 06:57] LABS: Basophils Absolute Auto 0.1 X10*3/uL (0.0-0.2); Basophils Percent Auto 1.7 % (0-2); Eosinophils Absolute Auto 0.2 X10*3/uL (0.0-0.4); Eosinophils Percent Auto 4.1 % (0-4); Hematocrit 33.3 % (37.0-47.0); Hemoglobin 10.3 g/dl (12.0-16.0); Imm Gran Abs Auto 0.01 X10*3/uL (0.00-0.03); Imm Gran Pct Auto 0.2 % (0.0-0.4); Lymphocytes Absolute Auto 1.3 X10*3/uL (1.2-4.9); Lymphocytes Percent Auto 31.7 % (20-40); Mean Corpuscular HGB Conc 30.9 g/dl (31.0-35.0); Mean Corpuscular Hemoglobin 26.8 pg (27.0-33.0); Mean Corpuscular Volume 86.7 fL (80.0-98.0); Mean Platelet Volume 9.3 fL (9.4-12.3); Monocytes Absolute Auto 0.5 X10*3/uL (0.1-1.2); Monocytes Percent Auto 11.4 % (2-11); Neutrophils Absolute Auto 2.1 x10*3/uL (2.0-8.3); Neutrophils Percent Auto 50.9 % (45-73); Platelet Count 222 X10*3/uL (160-400); Red Blood Count 3.84 X10*6/uL (4.20-5.50); Red Cell Distribution Width 15.9 % (11.0-16.0); White Blood Count 4.1 X10*3/uL (4.8-10.8)
[2024-01-18 07:01] LABS: Anion Gap 12 (12-20); Blood Urea Nitrogen 14 mg/dL (9-16); Calcium 9.2 mg/dL (8.4-10.2); Carbon Dioxide 26 mmol/L (22-29); Chloride 107 mmol/L (96-108); Creatinine Clr Calc Pharmacy 88.6; Estimated Glomerular Filt Rate > 60; Glucose Random 138 mg/dL (60-115); Magnesium 2.1 mg/dL (1.6-2.6); Phosphorus 3.4 mg/dL (2.7-4.5); Potassium 3.8 mmol/L (3.3-5.1); Sodium 141 mmol/L (135-145); Vancomycin Random 8.2 mcg/mL (15-20)
--- NOTE | 2024-01-18 07:31 | HE.PHANOTE ---
RE [facility] Patients level came back this morning a little early. Lab was pulled about 2 hours early and came back at 8.2. Considering lab was pulled late, level could have been even more subtherapeutic. Increasing dose to 1250 mg Q8H x 3 doses. Level to be drawn tomorrow @0900. Predicted Auc 558
[2024-01-18 07:49] VITALS: BP 105/52; PULSE 66; RESP 19; TEMP 37.2; O2SAT 100
[2024-01-18] MEDS: Nicotine 14 MG PATCH.TD24 TRANSDERMA (08:32)
[2024-01-18] MEDS: methADONE HCl 20 MG/2 ML ORAL.CONC 50 MG PO (08:32)
[2024-01-18] MEDS: 0.9 % Sodium Chloride Flush 3 ML SYRINGE IVFLUSH ×2 (08:41→16:36)
[2024-01-18 08:46] LABS: Creatinine Clr Calc Pharmacy 91.6; Estimated Glomerular Filt Rate > 60
[2024-01-18 11:28] LABS: HIV AB/AG Nonreactive (Nonreactive); HIV Num 1 0.04 S/CO (0.00-0.99)
[2024-01-18 11:33] VITALS: BP 122/69; PULSE 72; RESP 18; TEMP 37; O2SAT 97
--- NOTE | 2024-01-18 12:15 | HO.PM.IMPN ---
Subjective Subjective Date of Service: 01/18/24 Interval History: possible septic left knee Review of Systems s/p left knee washout on 01/13 pain improving no fever or chills Physical Exam Vital Signs: Vital Signs: Last Vital Signs Temp 98.6 F 01/18/24 11:33 Pulse 72 01/18/24 11:33 Resp 18 01/18/24 11:33 BP 122/69 01/18/24 11:33 Pulse Ox 97 01/18/24 11:33 O2 Del Method Room Air 01/18/24 11:33 O2 Flow Rate 1 01/14/24 03:00 BMI result Body Mass Index 19.1 Appearance: Alert.? Oriented X3.? . cvs: rrr, [id number] , no murmur res: clear to auscultation ,no rhonchii or wheezing abd: no rebound or guarding ,nt, bs present. ext pulses present , no cyanosis left knee wrapped -some discomfort with rom . neuro: axo3 , nonfocal. Objective Data Active Medications Acetaminophen (Acetaminophen 325 Mg Tablet) 650 mg PO Q6H PRN PRN Reason: Pain, Mild (Pain Scale 1-3) Last Admin: 01/18/24 03:24 Dose: 650 mg Documented By: ADITI Cefepime HCl 2 gm/ Sodium (Chloride) 50 mls @ 100 mls/hr IV Q8H [facility] Last Infusion: 01/18/24 09:14 Dose: Infused Documented By: ARIS Vancomycin HCl 1,250 mg/ (Sodium Chloride) 250 mls @ 166.667 mls/hr IV Q8H [facility] Lorazepam (Lorazepam 1 Mg Tablet) 1 mg PO BEDTIME PRN PRN Reason: Anxiety Last Admin: 01/17/24 20:29 Dose: 1 mg Documented By: ADITI Methadone HCl (Methadone Hcl 20 Mg/2 Ml Oral.Conc) 50 mg PO DAILY [facility] Last Admin: 01/18/24 08:32 Dose: 50 mg Documented By: ARIS Nicotine (Nicotine 14 Mg Patch.Td24) 14 mg TRANSDERMA DAILY [facility] Last Admin: 01/18/24 08:32 Dose: 14 mg Documented By: ARIS Ondansetron HCl (Ondansetron Odt 4 Mg Tab.Rapdis) 4 mg TRANSLINGU Q8H PRN PRN Reason: Nausea and Vomiting Last Admin: 01/16/24 08:23 Dose: 4 mg Documented By: ALLY Oxycodone HCl (Oxycodone Hcl Immed Release 15 Mg Tablet) 30 mg PO Q4H PRN PRN Reason: Pain, Severe (Pain Scale 7-10) Last Admin: 01/18/24 10:25 Dose: 30 mg Documented By: ARIS Pharmacy Consult (Consult Rx Vancomycin Dosing) 1 each MISCELLANE DAILY PRN PRN Reason: Consult order Sodium Chloride (0.9 % Sodium Chloride Flush 3 Ml Syringe) [facility] Last Admin: 01/18/24 08:41 Dose: 3 ml Documented By: ARIS Labs 01/18/24 05:55 01/18/24 08:03 Labs: Laboratory Results - last 24 hr 01/13/24 01/17/24 01/18/24 08:54 17:35 05:55 MCV 86.7 MCH 26.8 L MCHC 30.9 L RDW 15.9 Plt Count 222 MPV 9.3 L Immature Gran % (Auto) 0.2 Neut % (Auto) 50.9 Lymph % (Auto) 31.7 [place] % (Auto) 11.4 H Eos % (Auto) 4.1 H Baso % (Auto) 1.7 Lymph # (Auto) 1.3 [place] # (Auto) 0.5 Eos # (Auto) 0.2 Baso # (Auto) 0.1 Abs Immat Gran (auto) 0.01 Absolute Neuts (auto) 2.1 Absolute Nucleated RBC 0.000 Nucleated RBC % (auto) 0.0 Hold Purple Top Anion Gap 12 Estim Creat Clear Calc 88.6 Estimated GFR > 60 POC Glucose 224 H Random Glucose 138 H Calcium 9.2 Phosphorus 3.4 Magnesium 2.1 Synovial Lyme DNA (PCR) NOT DETECTED Random Vancomycin 8.2 L Lyme (Rapid PCR) Src FLUID, SYNOVIAL HIV 1&2 Ab/P24 Ag 4thGn 01/18/24 01/18/24 08:03 10:29 MCV MCH MCHC RDW Plt Count MPV Immature Gran % (Auto) Neut % (Auto) Lymph % (Auto) [place] % (Auto) Eos % (Auto) Baso % (Auto) Lymph # (Auto) [place] # (Auto) Eos # (Auto) Baso # (Auto) Abs Immat Gran (auto) Absolute Neuts (auto) Absolute Nucleated RBC Nucleated RBC % (auto) Hold Purple Top SEE NOTE Anion Gap Estim Creat Clear Calc 91.6 Estimated GFR > 60 POC Glucose Random Glucose Calcium Phosphorus Magnesium Synovial Lyme DNA (PCR) Random Vancomycin Lyme (Rapid PCR) Src HIV 1&2 Ab/P24 Ag 4thGn Nonreactive Microbiology Microbiology Results: Microbiology 01/13/24 08:09 Blood Culture - Final Blood - Venous No growth after 5 days. 01/13/24 07:41 Blood Culture - Final Blood - Venous No growth after 5 days. 01/13/24 08:54 Gram Stain - Final Knee aspirate Anaerobic Culture - Final NO GROWTH AFTER 5 DAYS Gross Specimen Examination - Final Fluid Crystals - Final Joint Fluid Culture - Final No growth after 2 days 01/14/24 Unknown Gram Stain - Final Knee,Left Routine Culture - Final No growth after 2 days Anaerobic Culture - Preliminary No growth to date. Assessment and Plan (1) Methadone maintenance therapy patient: Status: Acute (2) Cocaine use: Status: Acute (3) Septic joint of left knee joint: Status: Acute Plan 53-year-old lady with underlying COPD, history of gastric bypass, recurrent hypoglycemia, chronic pain on methadone, cocaine abuse admitted on 01/13/2024 with left knee pain with left knee aspiration suggestive of septic joint(admitted with septic shock likely secondary to left knee septic joint), further complicated by septic shock with bradycardia requiring pressor support. Patient is status post arthroscopic washout on 01/14/2024 by Orthopedic surgery. septic left knee wbc improving,blood cultures neg@48hrs left knee culture prelimary negtive @2days lyme serology and synovial fluid -negative hiv 1&2 negative Id eval -noted:Continue Cefepime and Vancomycin for now. If nothing grows and Lyme negative possible Ceftriaxone and Vancomycin for three weeks or so as WBC elevated 59,000 in knee ,95% lymph,possible longstanding infection. copd stable: prn nebs opoid use : adjusted methadone addiction for cocaine use. depsression /SI:added psych eval hcp form in paper chart sitter patient will need psych clearence before discharge,currently working on rehab placement since need 3 weeks iv antibiotics as per iD. Pt eval added Ongoing hospitalization need for 48-72hrs : Will need PICC line placement and rehab once we have support then we will place PICC line for long-term IV antibiotics . Quality Stroke Does the patient have a stroke diagnosis?: No VTE Prior VTE?: No VTE Risk Level:: Medical - moderate - high VTE Device Contraindication: N/A - Device Ordered VTE Drug Contraindication: Treatment Not Indicated
--- NOTE | 2024-01-18 13:00 | MHC.CM.PN ---
EMR REVIEWED, CM DISCUSSED DISPO W/HOSPITALIST, PER ID PT WILL NEED 3WKS IV ABX IN SNF D/T CURRENT COCAINE USEAND PT WILL NEED IV VANCO WELL IV CEFIPIME, REFERRAL PLACED TO [facility] AND CONT TO FOLLOW DC NEEDS.
--- NOTE | 2024-01-18 14:05 | MHC.CM.PN ---
CM MET WITH PT TO DISCUSS DC PLANNING, SHE IS AWARE STR IS BEING RECOMMENDED FOR IV ABX. SHE ASKS MULTIPLE TIMES IF THIS COULD BE DONE IN HER HOME OR OUTPATIENT AT AN INFUSION COMPANY CM EXPLAINED BECAUSE IT IS 3X/DAY AND TWO MEDS, IT COULD NOT BE DONE OUTPATIENT AND DUE TO HER SA HISTORY, SHE COULD NOT BE SENT HOME WITH PICC SHE STATES UNDERSTANDING HOWEVER CONTINUES TO STATE SHE DOES NOT WANT TO GO TO A SNF SHE CALLED HER DAUGHTER, BREN, WITH CM PRESENT SHE TOLD BREN SHE WANTED TO DC HOME, BREN STATING SHE CANNOT GO HOME. BREN TOLD HER IF SHE TRIED TO SIGN OUT AMA, SHE WILL ___, BUT DID NOT FINISH THE STATEMENT, SHE DID CLARIFY SHE WOULD NOT DRIVE PT HOME. PT ALSO CALLED HER OTHER DAUGHTER, EVELIO, WHO SAID THE SAME THINGS BREN, SHE DOES NOT FEEL PT SHOULD LEAVE AND WILL NOT DRIVE HER HOME. PT STATES SHE DOES NOT CARE, SHE IS GOING TO SIGN OUT AND WILL WALK HOME IF NECESSARY
--- NOTE | 2024-01-18 14:51 | MHC.CM.PN ---
CM MET W/PT AFTER RECEIVING CALL FROM ONE OF HER DTRS WHO REPORTED PT HAS BEEN MAKING SUICIDAL STATEMENTS AT HOME AND WAS CONCERNED FOR PTS SAFETY IF SHE LEAVES AMA, PT ALSO HAD MAD SI STATEMENTS TO P.T. DURING EVAL, PER NURSING PT ALSO ATTMEPTED TO [facility] FROM UNIT AND WAS AT [facility] HOWEVER RETURNED TO W/STAFF, HOSPITALIST AWARE AND HAS ORDERED PSYCH CONSULT. PT AWARE SHE WILL BE UNABLE TO LEAVE UNTIL SHE IS SEEN BY PSYCH PROVIDER FOR CLEARANCE D/T ABOVE, PT ASKING FOR VIDEO CAM TO BE REMOVED HOWEVER AWARE IF THAT HAPPENS SHE WOULD NEED A SITTER. PT STATES ALL SHE WANTS TO DO IS GO OUTSIDE AND SMOKE A CIGARETTE AND WOULD COME RIGHT BACK IN, PT AWARE THAT WOULD BE UP TO HOSPITALIST AND [facility] AND SHE WOULD NEED TO BE CLEARED BY PSYCH.
[2024-01-18 14:57] VITALS: BP 126/65; PULSE 77; RESP 17; TEMP 36.8; O2SAT 98
--- NOTE | 2024-01-18 16:18 | P.CNPS_ITS ---
History of Present Illness Date of Service: 01/18/2024 Chief Complaint: Septic knee Reason for Consult: Depression, SI Requesting physician: Jose Juan Braden Sources of Information: patient interviewed and chart reviewed HPI Narrative: 53 yo female, admitted for L knee edema with septic joint, sinus bradycardia, hypotension, s/p arthroscopic washout, history of COPD, gastric bypass, hypogylcemia, chronic pain-Methadone maintenance for 11 years, dependence for 25 years and cocaine use. Pt told recently that she will need ~21 days of tid antibiotics x 2 varieties and will need to go to SNF for administration as having these out patient in her home is too complex. Per team pt has made statements such as let me , push me down the stairs, I will go AMA . Family and team expressed concern. Pt very willing to meet, I have a lot to live for, I do not want to , but you know I am really aggravated and frustrated and I have a lot going on in my life right now so this is really hard for me. Describes current issues as recovery from a serious illness, tearful, stating the doctor told me I almost lost my life. It happened so fast. Describes missing her dog, grief over loss of mom ~24 months ago-pt was her care provider, my best friend . Mom had COPD, Emphysema, pt found her and attempted CPR. Father, who is in [place] is preparing to pass away, and brother is in process of selling the family home-pt needing to pack and find a place to live. Pt also is missing her dog and asks to be allowed to go out to her childrens car for a cigarette as patch/gum are not covering her at this time. Pt states, yes, I make comments like this, but not because I want to , but because I am tired of living like this and just want someone to offer some help. Reports anxiety about rehab bed search- it is a problem with my Methadone , no one is talking to me about it, I have many questions, I know I need to do this and I will but there are questions. Past Psychiatric History: IP: Denies OP: [facility] [address] [place] [address] [facility] 11 years Hx of misuse of opiates 25 years ago No current psychotropics. Discussed options. Medical Evaluation Reviewed: Yes Personal & Social History: Two daughters, 20 and 29, very invested and worried about me Loss of mom 2021-lived with pt who was her care provider Dad in [place] and she reports is at the end of his life Brother about to sell the family home, pt will need to move Review of Systems Review of Systems as noted [facility] Medical History (Updated 01/18/24 @ 16:50 by Em Francisco, RAJINDER) Adjustment reaction with mixed emotional features Narrative: COPD Recurrent hypoglycemia Chronic pain-Methadone Septic knee Sinus bradycardia Hypotension PUD Narrative: Gastric Bypass Peptic Ulcer Septic knee Family History: mom with chronic pain, joint, bone issues Substance History: Opiate misuse ~25 years ago, Methadone maintenance x 11 years with [facility] Trauma History: of mother Diagnostics Vital Signs (24Hr): Vital Signs - 24 hr 01/17/24 17:00 01/17/24 19:46 01/18/24 00:00 Temperature 98.3 F 96.9 F Pulse Rate 63 72 59 Respiratory Rate 14 17 20 Blood Pressure 97/55 L 131/83 101/66 Pulse Oximetry 97 95 98 Oxygen Delivery Method Room Air Room Air Room Air 01/18/24 03:21 01/18/24 07:49 01/18/24 11:33 Temperature 97.6 F 99.0 F 98.6 F Pulse Rate 50 66 72 Respiratory Rate 20 19 18 Blood Pressure 104/52 L 105/52 L 122/69 Pulse Oximetry 100 100 97 Oxygen Delivery Method Room Air Room Air Room Air 01/18/24 14:57 Temperature 98.3 F Pulse Rate 77 Respiratory Rate 17 Blood Pressure 126/65 Pulse Oximetry 98 Oxygen Delivery Method Room Air BMI result Body Mass Index 19.1 Labs 01/18/24 05:55 01/18/24 08:03 Labs: Laboratory Results - last 48 hr 01/13/24 01/13/24 01/16/24 08:54 17:04 17:30 WBC RBC Hgb Hct MCV MCH MCHC RDW Plt Count MPV Immature Gran % (Auto) Neut % (Auto) Lymph % (Auto) [place] % (Auto) Eos % (Auto) Baso % (Auto) Lymph # (Auto) [place] # (Auto) Eos # (Auto) Baso # (Auto) Abs Immat Gran (auto) Absolute Neuts (auto) Absolute Nucleated RBC Nucleated RBC % (auto) Hold Purple Top Sodium Potassium Chloride Carbon Dioxide Anion Gap BUN Creatinine Estim Creat Clear Calc Estimated GFR POC Glucose 53 L* Random Glucose Calcium Phosphorus Magnesium Albumin Synovial Lyme DNA (PCR) NOT DETECTED Random Vancomycin Babesia microti IgG Ab <1:64 Babesia microti IgM Ab <1:20 Babesia Interpretation SEE NOTE Lyme (Rapid PCR) Src FLUID, SYNOVIAL HIV 1&2 Ab/P24 Ag 4thGn 01/16/24 01/16/24 01/16/24 17:32 17:54 19:03 WBC RBC Hgb Hct MCV MCH MCHC RDW Plt Count MPV Immature Gran % (Auto) Neut % (Auto) Lymph % (Auto) [place] % (Auto) Eos % (Auto) Baso % (Auto) Lymph # (Auto) [place] # (Auto) Eos # (Auto) Baso # (Auto) Abs Immat Gran (auto) Absolute Neuts (auto) Absolute Nucleated RBC Nucleated RBC % (auto) Hold Purple Top Sodium Potassium Chloride Carbon Dioxide Anion Gap BUN Creatinine Estim Creat Clear Calc Estimated GFR POC Glucose 52 L* 180 H 103 Random Glucose Calcium Phosphorus Magnesium Albumin Synovial Lyme DNA (PCR) Random Vancomycin Babesia microti IgG Ab Babesia microti IgM Ab Babesia Interpretation Lyme (Rapid PCR) Src HIV 1&2 Ab/P24 Ag 4thGn 01/16/24 01/16/24 01/17/24 21:03 23:32 05:53 WBC RBC Hgb Hct MCV MCH MCHC RDW Plt Count MPV Immature Gran % (Auto) Neut % (Auto) Lymph % (Auto) [place] % (Auto) Eos % (Auto) Baso % (Auto) Lymph # (Auto) [place] # (Auto) Eos # (Auto) Baso # (Auto) Abs Immat Gran (auto) Absolute Neuts (auto) Absolute Nucleated RBC Nucleated RBC % (auto) Hold Purple Top Sodium Potassium Chloride Carbon Dioxide Anion Gap BUN Creatinine Estim Creat Clear Calc Estimated GFR POC Glucose 96 132 H 153 H Random Glucose Calcium Phosphorus Magnesium Albumin Synovial Lyme DNA (PCR) Random Vancomycin Babesia microti IgG Ab Babesia microti IgM Ab Babesia Interpretation Lyme (Rapid PCR) Src HIV 1&2 Ab/P24 Ag 4thGn 01/17/24 01/17/24 01/17/24 09:52 12:08 17:35 WBC 5.4 RBC 3.96 L Hgb 10.5 L Hct 33.8 L MCV 85.4 MCH 26.5 L MCHC 31.1 RDW 15.8 Plt Count 218 MPV 8.4 L Immature Gran % (Auto) 0.2 Neut % (Auto) 66.9 Lymph % (Auto) 20.1 [place] % (Auto) 9.9 Eos % (Auto) 2.2 Baso % (Auto) 0.7 Lymph # (Auto) 1.1 L [place] # (Auto) 0.5 Eos # (Auto) 0.1 Baso # (Auto) 0.0 Abs Immat Gran (auto) 0.01 Absolute Neuts (auto) 3.6 Absolute Nucleated RBC 0.000 Nucleated RBC % (auto) 0.0 Hold Purple Top Sodium 139 Potassium 3.7 Chloride 104 Carbon Dioxide 29 Anion Gap 10 L BUN 12 Creatinine 0.60 Estim Creat Clear Calc 80.2 Estimated GFR > 60 POC Glucose 332 H 224 H Random Glucose 104 Calcium 9.3 Phosphorus 3.3 Magnesium 2.0 Albumin 3.9 Synovial Lyme DNA (PCR) Random Vancomycin 9.1 L Babesia microti IgG Ab Babesia microti IgM Ab Babesia Interpretation Lyme (Rapid PCR) Src HIV 1&2 Ab/P24 Ag 4thGn 01/18/24 01/18/24 01/18/24 05:55 08:03 10:29 WBC 4.1 L RBC 3.84 L Hgb 10.3 L Hct 33.3 L MCV 86.7 MCH 26.8 L MCHC 30.9 L RDW 15.9 Plt Count 222 MPV 9.3 L Immature Gran % (Auto) 0.2 Neut % (Auto) 50.9 Lymph % (Auto) 31.7 [place] % (Auto) 11.4 H Eos % (Auto) 4.1 H Baso % (Auto) 1.7 Lymph # (Auto) 1.3 [place] # (Auto) 0.5 Eos # (Auto) 0.2 Baso # (Auto) 0.1 Abs Immat Gran (auto) 0.01 Absolute Neuts (auto) 2.1 Absolute Nucleated RBC 0.000 Nucleated RBC % (auto) 0.0 Hold Purple Top SEE NOTE Sodium 141 Potassium 3.8 Chloride 107 Carbon Dioxide 26 Anion Gap 12 BUN 14 Creatinine 0.60 0.58 Estim Creat Clear Calc 88.6 91.6 Estimated GFR > 60 > 60 POC Glucose Random Glucose 138 H Calcium 9.2 Phosphorus 3.4 Magnesium 2.1 Albumin Synovial Lyme DNA (PCR) Random Vancomycin 8.2 L Babesia microti IgG Ab Babesia microti IgM Ab Babesia Interpretation Lyme (Rapid PCR) Src HIV 1&2 Ab/P24 Ag 4thGn Nonreactive Imaging Radiology Impressions: ITS Impressions Knee X-Ray 01/13/24 08:14 IMPRESSION: Moderate to severe tricompartmental osteoarthritis and moderate joint effusion of the left knee. No evidence of acute osseous injury. Mental Status Exam Mental Status Exam Patient Appearance: Fatigued Patient Orientation: Person, Place, Time and Situation Level of Consciousness: Awake, Appropriate and Alert Patient Behavior: Appropriate, Talkative, Cooperative, Anxious, Fearful, Fatigued, Distractible, Good Eye Contact and Crying Mood Description: Depressed, Anxious and Apprehensive Affect Description: Flat Patient Cognition Impaired: No Ability to Follow Directions: Good Speech Pattern: Clear, Perseverating, Appropriate, Spontaneous Speech, Coherent and Soft-Spoken Memory Description: Intact Hallucinations: None Delusions: Not Present Thought Process: Rumination Thought Content: positive for Circumstantial and positive for Perseveration Depressive Symptoms: Increased Anxiety, Increased Irritability, Thoughts of /Suicide (denies SI, plan, intent) and Loss of Energy Judgement: Fair Medications Medications Current Medications Acetaminophen (Acetaminophen 325 Mg Tablet) 650 mg PO Q6H PRN PRN Reason: Pain, Mild (Pain Scale 1-3) Last Admin: 01/18/24 03:24 Dose: 650 mg Cefepime HCl 2 gm/ Sodium (Chloride) 50 mls @ 100 mls/hr IV [facility]H [facility] Last Infusion: 01/18/24 09:14 Dose: Infused Vancomycin HCl 1,250 mg/ (Sodium Chloride) 250 mls @ 166.667 mls/hr IV Q8H [facility] Lorazepam (Lorazepam 1 Mg Tablet) 1 mg PO BEDTIME PRN PRN Reason: Anxiety Last Admin: 01/17/24 20:29 Dose: 1 mg Methadone HCl (Methadone Hcl 20 Mg/2 Ml Oral.Conc) 100 mg PO DAILY [facility] Nicotine (Nicotine 21 Mg Patch.Td24) 21 mg TRANSDERMA DAILY [facility] Ondansetron HCl (Ondansetron Odt 4 Mg Tab.Rapdis) 4 mg TRANSLINGU Q8H PRN PRN Reason: Nausea and Vomiting Last Admin: 01/16/24 08:23 Dose: 4 mg Oxycodone HCl (Oxycodone Hcl Immed Release 15 Mg Tablet) 30 mg PO Q4H PRN PRN Reason: Pain, Severe (Pain Scale 7-10) Last Admin: 01/18/24 14:22 Dose: 30 mg Pharmacy Consult (Consult Rx Vancomycin Dosing) 1 each MISCELLANE DAILY PRN PRN Reason: Consult order Sodium Chloride (0.9 % Sodium Chloride Flush 3 Ml Syringe) 3 ml IVFLUSH QSHIFT [facility] Last Admin: 01/18/24 08:41 Dose: 3 ml Allergies Allergies Allergy/AdvReac Type Severity Reaction Status Date / Time codeine AdvReac Rash Verified 01/13/24 06:15 Assessment & Plan Assessment & Plan (1) Adjustment reaction with mixed emotional features: Status: Acute Code(s): F43.29 - Adjustment disorder with other symptoms (2) Methadone maintenance therapy patient: Status: Acute Code(s): F11.20 - Opioid dependence, uncomplicated (3) Cocaine use: Status: Acute Code(s): F14.90 - Cocaine use, unspecified, uncomplicated Plan 53 yo female, admitted with septic knee joint, hypotension, sinus bradycardia with arthoscopic washout. Pt now facing SNF time for IV ABX for ~21 days, expressing increase in despair and suicidal statements to team and children. Pt very open to discuss this today, affirms making these statements with no SI, no intent, no plan but with frustration that she is tired of living like this and wants some assistance to improve her life-identifies several stressors as noted above that she is thinking about. Plan: Pt denies SI, plan or intent. She identifies reasons to live and identifies statements made as a way she expresses her frustration. Pt agrees to rehab. She wants to be involved in the process and has several concerns, including---can she smoke outside at the rehab, can she vape outside at the rehab, can she have visitors, can she have GIL/passes with her children, can her dog visit. Pt asks if she can go outside of [facility] to [place]-directed her to her MD to ask this question. Discussion of medications. She will consider and is not opposed. She worries that this will not be accepted by her Methadone program. Discussion of Cymbalta, low dose and efficacy for depression, anxiety, fibromyalgia sx, chronic musculoskeletal pain, chronic pain and neuropathic pain. Discussed potential interactions with Methadone and monitoring parameters. She will discuss with her Methadone team. Discussed benefits of continuining counseling with her OP Methadone team and considering increase in psychotherapy during rehab as she identifies several stressors which may decrease with process oriented work. Total time managing care of this patient today ____ minutes. Patient educated on: medication risk/benefits and therapeutic strategies Informed Consent: understands
[2024-01-18 19:33] VITALS: BP 119/56; PULSE 71; RESP 21; TEMP 36.7; O2SAT 96
--- NOTE | 2024-01-18 21:26 | PM.PNORT ---
Subjective Subjective Date of Service: 01/18/24 Principal diagnosis: Septic left knee Interval history: Left knee Arthroscopic wash out states her knee is improving she is anxious to go home Physical Exam Vital Signs: Vital Signs: Last Vital Signs Temp 98.0 F 01/18/24 19:33 Pulse 71 01/18/24 19:33 Resp 21 H 01/18/24 19:33 BP 119/56 L 01/18/24 19:33 Pulse Ox 96 01/18/24 19:33 O2 Del Method Room Air 01/18/24 19:33 O2 Flow Rate 1 01/14/24 03:00 BMI result Body Mass Index 19.1 Extrem: Other: Left lower extremity examination shows that the surgical dressing is intact, no drainage, moderate discomfort with range of motion Procedures Date of Service Date of Service: 01/18/24 Progress Note: A&P Assessment and plan (1) Septic joint of left knee joint: Status: Acute Assessment and Plan: continue iv abx wbat with ROM dc once medically cleared f/u outpatient in 2 weeks Time Spent With Patient Time: Total time managing care of this patient today ____ minutes. Quality Stroke Does the patient have a stroke diagnosis?: No VTE Prior VTE?: No VTE Risk Level:: Medical - moderate - high VTE Device Contraindication: N/A - Device Ordered VTE Drug Contraindication: Treatment Not Indicated
[2024-01-18] MEDS: LORazepam 1 MG TABLET PO (22:27)
[2024-01-19] VITALS: BP 95/50; PULSE 63; RESP 21; TEMP 36.3; O2SAT 96
[2024-01-19] MEDS: Acetaminophen 325 MG TABLET 650 MG PO (03:49)
[2024-01-19] MEDS: oxyCODONE HCl Immed Release 15 MG TABLET 30 MG PO ×4 (03:49→16:33)
[2024-01-19 04:00] VITALS: BP 106/55; PULSE 66; RESP 20; TEMP 36.2; O2SAT 100
[2024-01-19 07:20] VITALS: BP 145/72; PULSE 53; RESP 20; TEMP 36.3; O2SAT 100
[2024-01-19] MEDS: Nicotine 21 MG PATCH.TD24 TRANSDERMA (08:09)
[2024-01-19] MEDS: methADONE HCl 20 MG/2 ML ORAL.CONC 100 MG PO (08:09)
[2024-01-19] MEDS: cefEPime HCl 2 GM in 0.9 % Sodium Chloride 50 ML IV ×2 (08:09→16:28)
[2024-01-19] MEDS: 0.9 % Sodium Chloride Flush 3 ML SYRINGE IVFLUSH ×2 (08:13→16:28)
--- NOTE | 2024-01-19 09:13 | MHC.CM.PN ---
EMR REVIEWED, PER PSYCH CONSULT PT WILLING TO GO TO STR HOWEVER HAS QUESTIONS ABOUT SMOKING AND IF SHE CAN USE HER VAPE, IF SHE CAN HAVE A GIL W/FAMILY FOR OUTINGS AND IF HER DOG CAN VISIT, CM FOLLOWED UP W/REFERRAL AND DOT IS NOT CONTRACTED W/PT'S INSURANCE, NO RESPONSE FROM [facility] HOWEVER REF RESENT IT APPEARS IT DID NOT GO THROUGH YESTERDAY, PT WILL DC ONCE STR BED SECURED, CM WILL FOLLOW UP W/PT AND PT'S OUPT [facility] AND CONT TO FOLLOW DC NEEDS.
[2024-01-19] MEDS: Ondansetron ODT 4 MG TAB.RAPDIS TRANSLINGU (09:40)
[2024-01-19 09:54] LABS: Creatinine Clr Calc Pharmacy 80.5; Estimated Glomerular Filt Rate > 60; Vancomycin Random < 2.0 mcg/mL (15-20)
--- NOTE | 2024-01-19 11:04 | HE.PHANOTE ---
RE [facility] Patients level came back <2. This is because the order placed by pharmacy yesterday was meant to start that morning on 01/17 but instead started on 01/18. Will dose patient at 1250 mg Q8H. Next level tomorrow 01/19 @0900,.
[2024-01-19 11:05] VITALS: BP 134/60; PULSE 58; RESP 20; TEMP 36.8; O2SAT 99
--- NOTE | 2024-01-19 11:17 | MHC.CLN ---
F/U DIET=REGULAR. ENSURE BID PROVIDES 700 KCALS, 40 G PROTEIN. SHOWS WEIGHT GAIN SINCE ADMISSION WITH BMI=19.1. INTAKE APPEARS TO BE GOOD. CONTINUE CURRENT DIET AND SUPPLEMENT. FOLLOW FOR PO INTAKE AND WEIGHT.
[2024-01-19] MEDS: vancomycin HCL 1,250 MG in 0.9 % Sodium Chloride 250 ML 166.67 MG IV (11:28)
--- NOTE | 2024-01-19 13:16 | MHC.CM.PN ---
CM CONTACTED NSG AT [facility] [phone] TO START GUEST DOSING PROCESS [facility] WILL HAVE A BED NEXT WEEK, JULIA REPORTS CM WILL JUST NEED TO SEND DC SUMMARY AND LAST DOSE LETTER ON DAY OF DC AND SHE WILL CONTACT PT'S CLINIC [facility]. CM ALSO CONTACTED FACILITY TO ASK QUESTIONS PER PT REQUEST, PT CAN SMOKE AND THEY HAVE DESIGNATED SMOKING TIMES, PT IS NOT ABLE TO USE A VAPE, NO GIL'S W/FAMILY ARE ALLOWED AND FAMILY CAN BRING IN DOG FOR VISIT IF THEY HAVE CURRENT [facility] VACCINE PAPERWORK. CM WILL UPDATE PT.
--- NOTE | 2024-01-19 15:08 | MHC.RECOVRN ---
Met with pt in 478 after consult placed to Addiction Medicine for cocaine use. Pt had presented to the ED reporting knee pain and inability to bear weight x 2 days. Upon evaluation, pt admitted due to septic joint of left knee. Pt sitting in bed, awake, alert, easily engages in conversation. Pt is currently on methadone, 100 mg daily through [facility] in [place] (formerly [facility] [place]). Pt reports she has been doing well with methadone x 11 years. Pt states It's because of my pain. I have never used heroin in my life. Pt reports using opioid pain medication prior to initiating methadone. Pt states Really I could take it or leave it, my drug of choice is cocaine. Pt reports she enjoys stimulants because it keeps me awake and I can get things done. Pt reports cocaine use, INH, $40, 3-7 days a week, x 30 or 40 years. Pt reports she is not interested in abstinence at this time, however, reports it is naturally happening due to being in the hospital and plan for STR. Pt denies stimulant cravings. Pt reports currently feeling agitation, requesting medication to help. Pt declines referrals/resources for StUD at this time. Pt denies other questions or concerns for t/w. Discussed with Angie Davenport APRN.
[2024-01-19 15:33] VITALS: BP 116/70; PULSE 71; RESP 19; TEMP 36.8; O2SAT 97
--- NOTE | 2024-01-19 16:36 | PM.EVENT ---
Event Note Date of Service: 01/19/24 Event Note: Addiction follow up Patient seen by automation control integrator Discussed cocaine use, patient at this time is not looking to change her cocaine use Is requesting medication to addressing irritability/anxiety while hospitalized Discussed with attending provider --will start gabapetin tid PRN while inpatient Time Spent With Patient Time: Total time managing care of this patient today ____ minutes.
--- NOTE | 2024-01-19 16:46 | HO.PM.IMPN ---
Subjective Subjective Date of Service: 01/19/24 Interval History: possible septic left knee Review of Systems pain improving no fever or chills Physical Exam Vital Signs: Vital Signs: Last Vital Signs Temp 98.2 F 01/19/24 15:33 Pulse 71 01/19/24 15:33 Resp 19 01/19/24 15:33 BP 116/70 01/19/24 15:33 Pulse Ox 97 01/19/24 15:33 O2 Del Method Room Air 01/19/24 15:33 O2 Flow Rate 1 01/14/24 03:00 BMI result Body Mass Index 19.1 Appearance: Alert.? Oriented X3.? . cvs: rrr, [id number] , no murmur res: clear to auscultation ,no rhonchii or wheezing abd: no rebound or guarding ,nt, bs present. ext pulses present , no cyanosis left knee wrapped -some discomfort with rom . neuro: axo3 , nonfocal. Objective Data Active Medications Acetaminophen (Acetaminophen 325 Mg Tablet) 650 mg PO Q6H PRN PRN Reason: Pain, Mild (Pain Scale 1-3) Last Admin: 01/19/24 03:49 Dose: 650 mg Documented By: MARGARET Gabapentin (Gabapentin 100 Mg Capsule) 100 mg PO TID PRN PRN Reason: anxiety/restlessness Cefepime HCl 2 gm/ Sodium (Chloride) 50 mls @ 100 mls/hr IV Q8H [facility] Last Admin: 01/19/24 16:28 Dose: 100 mls/hr Documented By: PAULINE Vancomycin HCl 1,250 mg/ (Sodium Chloride) 250 mls @ 166.667 mls/hr IV Q8H [facility] Last Infusion: 01/19/24 12:57 Dose: Infused Documented By: ALLY Lorazepam (Lorazepam 1 Mg Tablet) 1 mg PO BEDTIME PRN PRN Reason: Anxiety Last Admin: 01/18/24 22:27 Dose: 1 mg Documented By: MARGARET Methadone HCl (Methadone Hcl 20 Mg/2 Ml Oral.Conc) 100 mg PO DAILY [facility] Last Admin: 01/19/24 08:09 Dose: 100 mg Documented By: ALLY Nicotine (Nicotine 21 Mg Patch.Td24) 21 mg TRANSDERMA DAILY [facility] Last Admin: 01/19/24 08:09 Dose: 21 mg Documented By: ALLY Ondansetron HCl (Ondansetron Odt 4 Mg Tab.Rapdis) 4 mg TRANSLINGU Q8H PRN PRN Reason: Nausea and Vomiting Last Admin: 01/19/24 09:40 Dose: 4 mg Documented By: ALLY Oxycodone HCl (Oxycodone Hcl Immed Release 15 Mg Tablet) 30 mg PO Q4H PRN PRN Reason: Pain, Severe (Pain Scale 7-10) Last Admin: 01/19/24 16:33 Dose: 30 mg Documented By: PAULINE Pharmacy Consult (Consult Rx Vancomycin Dosing) 1 each MISCELLANE DAILY PRN PRN Reason: Consult order Sodium Chloride (0.9 % Sodium Chloride Flush 3 Ml Syringe) 3 ml IVFLUSH QSHIFT [facility] Last Admin: 01/19/24 16:28 Dose: 3 ml Documented By: PAULINE Labs 01/18/24 05:55 01/19/24 09:15 Labs: Laboratory Results - last 24 hr 01/19/24 09:15 Hold Purple Top SEE NOTE Estim Creat Clear Calc 80.5 Estimated GFR > 60 Random Vancomycin < 2.0 L Microbiology Microbiology Results: Microbiology 01/14/24 Unknown Gram Stain - Final Knee,Left Routine Culture - Final No growth after 2 days Anaerobic Culture - Final NO GROWTH AFTER 5 DAYS Assessment and Plan (1) Septic joint of left knee joint: Status: Acute Plan 53-year-old lady with underlying COPD, history of gastric bypass, recurrent hypoglycemia, chronic pain on methadone, cocaine abuse admitted on 01/13/2024 with left knee pain with left knee aspiration suggestive of septic joint(admitted with septic shock likely secondary to left knee septic joint), further complicated by septic shock with bradycardia requiring pressor support. Patient is status post arthroscopic washout on 01/14/2024 by Orthopedic surgery. septic left knee wbc improving,blood cultures neg@48hrs left knee culture prelimary negtive @2days lyme serology and synovial fluid -negative hiv 1&2 negative Id eval -noted:Continue Cefepime and Vancomycin for now. If nothing grows and Lyme negative possible Ceftriaxone and Vancomycin for three weeks or so as WBC elevated 59,000 in knee ,95% lymph,possible longstanding infection. copd stable: prn nebs opoid use : adjusted methadone addiction for cocaine use. depsression /SI: hcp form in paper chart seen by psych -avelino RODRIGUEZ. please see psych note . Ongoing hospitalization need for : Will need PICC line placement and rehab once we have support then we will place PICC line for long-term IV antibiotics . Quality Stroke Does the patient have a stroke diagnosis?: No VTE Prior VTE?: No VTE Risk Level:: Medical - moderate - high VTE Device Contraindication: N/A - Device Ordered VTE Drug Contraindication: Treatment Not Indicated
[2024-01-19 20:00] VITALS: BP 129/69; PULSE 81; RESP 17; TEMP 37.2; O2SAT 98
--- NOTE | 2024-01-19 22:26 | PC.NURSE ---
Took over care for pt @ 1900. Pt AOx4, was agreeable and cooperative @ start of shift. When going into the patients room around 1950 to administer IV abx, pt daughters were in the room and the pt was visibly agitated and upset. Pt was able to be calmed down and daughters ceased being argumentative with their mother. Pt requested pain medication and upon looking at the MAR the pt was informed that the 30mg Oxycodone was discontinued and advised there was PRN Gabapentin and tylenol. Pt instantly became upset stating she will leave AMA. Messaged Dr. Majano to advise of the situation about the oxycodone and the pt requesting to leave. While waiting for the to come to bedside, alternatives were offered to pt in attempts to comfort. Pt repeatedly kept saying I can take tylenol at home and I don't need your stuff . MD came to bedside, provided other options for the pt. Pt requested and walked out AMA after IV was removed intact. Nursing stationary engineer supervisor, Security and PA came in contact with the patient on med/surg and attempted to calm pt and educate her on the need of her IV abx. Dr. Majano went down to see the pt and the daughters were brought downstairs as well. Pt signed the AMA form despite education and calmly exited the unit with her daughters by her side.
--- NOTE | 2024-01-20 08:06 | PM.EVENT ---
Event Note Date of Service: 01/20/24 Event Note: 8:16 PM - contacted to notify patient's was very agitated and wanted to leave AMA. I spoke with patient. Daughters were at bedside. Patient was very upset because she has not been getting oxycodone. I told her that I felt uncomfortable about giving her oxycodone 30 mg p.o. every 4 hours as she is already on methadone -risk of opiate overdose was a concern. I offered to order low dose oxycodone, Tylenol and NSAIDs to help with her pain but she refused this. She became very agitated and upset; and walked out of the room. She was stopped by security. Patient signed AMA paperwork and abandoned the hospital accompanied by her daughters. Time Spent With Patient Time: Total time managing care of this patient today ____ minutes.
--- NOTE | 2024-01-22 07:49 | PM.EVENT ---
Event Note Date of Service: 01/22/24 Event Note: Discharge summary: date of service and discharge: 01/19/2024 final disgnosis :septic shock sec to possible septic left knee joint. physical exam: last physical exam in my noted 01/19/24. [facility] please see Night Physician Dr Majano and Staff Fernando Bonilla's note for further details. Time Spent With Patient Time: Total time managing care of this patient today ____ minutes.
--- NOTE | 2024-03-17 15:25 | P.DS_ITS ---
DS: Providers Provider Date of Service: 01/19/24 Date of admission: 01/13/24 16:20 Date of discharge: 01/19/24 Primary care physician: Wander Tang DO, MD Consults: 01/15/24 07:31 Consult to Infectious Diseases Routine Consulting Provider[place] [facility] [place] [facility] Reason for consultation: septic left knee 01/18/24 14:20 Consult to Psychiatry Routine Consulting Provider: Psych Covering Reason for consultation: depression with SI Has provider been notified: No 01/18/24 14:21 Addiction Medicine Routine Consulting Provider: Addiction Covering Reason for consultation: coacine use Has provider been notified: No 01/18/24 16:05 Consult for Sitter Routine Reason for consultation: SI Has provider been notified: No Attending physician on discharge: Jose Juan Braden Discharging clinician: Jose Juan Braden DS: Diagnosis Discharge Diagnosis (1) Septic joint of left knee joint: Status: Acute DS: Summary Hospital Course Hospital Course: Patient left on01/19/24-left AMA. Please see my event note from Dr nettles and my event note. final disgnosis :septic shock sec to possible septic left knee joint. physical exam: last physical exam in my noted 01/19/24. [facility] please see Night Physician Dr Majano and Staff Fernando Bonilla's note for further details. Time Attestation Total time managing care of this patient today: 35 mintues. Discharge Coordination Time (in mins): 40 min Quality: Safe Use of Opioids Does Pt have an Active Cancer Diagnosis on the Problem List?: No Quality: Stroke Does the patient have a stroke diagnosis?: No Physical Exam Vital Signs: Vital Signs: Last Vital Signs Temp 99.0 F 01/19/24 20:00 Pulse 81 01/19/24 20:00 Resp 17 01/19/24 20:00 BP 129/69 01/19/24 20:00 Pulse Ox 98 01/19/24 20:00 O2 Del Method Room Air 01/19/24 20:00 O2 Flow Rate 1 01/14/24 03:00 BMI result Body Mass Index 19.1 left ama DS: Data Data Completed and Pending Completed studies during hospitalization [Text1]: Procedures Drainage of Left Knee Joint, Percutaneous Approach (01/13/24) Excision of Left Knee Joint, Open Approach (01/13/24) Introduction of Vasopressor into Peripheral Vein, Percutaneous Approach (01/13/24) Discharge Plan Discharge Anticipated Discharge Date/Time: 01/19/24 20:00 Patient Disposition: Left Against Medical Advice Discharge Diagnosis: septic shock sec to septic knee joint Referrals: Wander Tang DO, MD [Primary Care Provider] - 1 Week Discharge Medications: No Action acetaminophen 500 mg Tablet 500 mg PO Q6H PRN (Reason: Pain) methadone 10 mg/mL Concentrate 100 mg PO DAILY sucralfate 1 gram tablet 1 g PO BID Discharge Orders: Discharge Order (Routine); Ordered 03/17/24 Ordered By: Jose Juan Braden Diet: Advance to usual diet Activity on Discharge: As tolerated Print Language: Estonian Care Plan Goals: Left ama. Health Concerns: left ama Plan of Treatment: left ama Assessment: left ama Discharge Date/Time: 01/19/24 20:30
== END 2024-01-19 20:30 | disposition left against medical advice (07) | DRG 710 ==
LOC: HO.ED 17:01 → HO.EDOVER 17:16 → HO.ICU 17:54 → HO.IMC 01-17 17:43
PROVIDERS: Internal Medicine Pulmonary Disease; Orthopaedic Surgery; Registered Nurse Community Health; Admitting Provider Internal Medicine Critical Care Medicine; Emergency Provider Emergency Medicine Emergency Medical Services; PCP Internal Medicine; Visit Provider Internal Medicine
PROC: 0SBD0ZZ Excision of Left Knee Joint, Open Approach (ICD-10-PCS; CPT 29870; principal; 2024-01-14 08:00)
DX: A41.9 Sepsis, unspecified organism (principal); R65.21 Severe sepsis with septic shock; E44.0 Moderate protein-calorie malnutrition; M00.9 Pyogenic arthritis, unspecified; R45.851 Suicidal ideations; G89.29 Other chronic pain; R00.1 Bradycardia, unspecified; F43.29 Adjustment disorder with other symptoms; Z98.84 Bariatric surgery status; F11.20 Opioid dependence, uncomplicated; F14.10 Cocaine abuse, uncomplicated; Z68.1 Body mass index [BMI] 19.9 or less, adult
CPT/HCPCS: 36415; 73560; 80048; 80053; 80202; 80307; 81001; 82040; 82533; 82565; 82803; 82947; 83605; 83735; 84100; 84443; 85025; 85027; 85652; 86140; 86617; 86618; 86753; 86850; 86900; 86901; 87040; 87070; 87073; 87205; 87389; 87476; 89051; 89060; 93005; 93306; 97161; 99285; J0131; J0171; J0665; J0690; J0692; J0696; J1170; J1200; J1265; J2405; J2704; J3370; J3371; J3480; P9047

== ENCOUNTER → 2024-01-13 15:19 | Outpatient (BNV) | payer OTHER, SELFPAY | PROVIDERS: Admitting Provider Internal Medicine Critical Care Medicine; Emergency Provider Emergency Medicine Emergency Medical Services; PCP Internal Medicine; Visit Provider Internal Medicine Cardiovascular Disease | DX: R00.1 Bradycardia, unspecified (principal) | CPT/HCPCS: 93010 ==

== ENCOUNTER 2024-01-13 16:20 | Outpatient (BNV) | payer OTHER, SELFPAY | END 2024-01-16 07:00 | PROVIDERS: Admitting Provider Internal Medicine Critical Care Medicine; Emergency Provider Emergency Medicine Emergency Medical Services; PCP Internal Medicine; Visit Provider Internal Medicine | DX: I36.1 Nonrheumatic tricuspid (valve) insufficiency (principal); R00.1 Bradycardia, unspecified | CPT/HCPCS: 93306 ==

== ENCOUNTER → 2024-01-13 16:20 | Outpatient (BNV) | payer OTHER, SELFPAY | PROVIDERS: Admitting Provider Internal Medicine Critical Care Medicine; Emergency Provider Emergency Medicine Emergency Medical Services; PCP Internal Medicine; Visit Provider Orthopaedic Surgery | DX: M00.862 Arthritis due to other bacteria, left knee (principal) | CPT/HCPCS: 29871; 99024 ==

== ENCOUNTER → 2024-01-13 16:20 | Outpatient (BNV) | payer OTHER, SELFPAY | PROVIDERS: Admitting Provider Internal Medicine Critical Care Medicine; Emergency Provider Emergency Medicine Emergency Medical Services; PCP Internal Medicine; Visit Provider Internal Medicine Critical Care Medicine | DX: M00.9 Pyogenic arthritis, unspecified (principal); R00.1 Bradycardia, unspecified; I95.9 Hypotension, unspecified | CPT/HCPCS: 99291; 99497; 99499 ==

== ENCOUNTER → 2024-01-13 16:20 | Outpatient (BNV) | payer OTHER, SELFPAY | PROVIDERS: Admitting Provider Internal Medicine Critical Care Medicine; Emergency Provider Emergency Medicine Emergency Medical Services; PCP Internal Medicine; Visit Provider Clinical Nurse Specialist Psychiatric/Mental Health, Adult | DX: F11.20 Opioid dependence, uncomplicated (principal); F43.29 Adjustment disorder with other symptoms; F14.90 Cocaine use, unspecified, uncomplicated | CPT/HCPCS: 99222; 99232; 99499 ==

== ENCOUNTER → 2024-01-13 16:20 | Outpatient (BNV) | payer OTHER, SELFPAY | PROVIDERS: Admitting Provider Internal Medicine Critical Care Medicine; Emergency Provider Emergency Medicine Emergency Medical Services; PCP Internal Medicine; Visit Provider Internal Medicine Pulmonary Disease | DX: M00.9 Pyogenic arthritis, unspecified (principal); F14.90 Cocaine use, unspecified, uncomplicated; Z79.891 Long term (current) use of opiate analgesic; R00.1 Bradycardia, unspecified | CPT/HCPCS: 99232; 99291 ==

== ENCOUNTER → 2024-01-13 16:20 | Outpatient (BNV) | payer OTHER, SELFPAY | PROVIDERS: Admitting Provider Internal Medicine Critical Care Medicine; Emergency Provider Emergency Medicine Emergency Medical Services; PCP Internal Medicine; Visit Provider Internal Medicine | DX: M00.9 Pyogenic arthritis, unspecified (principal) | CPT/HCPCS: 99232; 99499 ==

== ENCOUNTER → 2024-01-13 16:20 | Outpatient (BNV) | payer OTHER, SELFPAY | PROVIDERS: Admitting Provider Internal Medicine Critical Care Medicine; Emergency Provider Emergency Medicine Emergency Medical Services; PCP Internal Medicine; Visit Provider Internal Medicine | DX: M00.9 Pyogenic arthritis, unspecified (principal) | CPT/HCPCS: 99222 ==

== ENCOUNTER 2024-02-12 11:29 | Outpatient (AMB) | payer OTHER, SELFPAY ==
--- NOTE | 2024-02-12 11:33 | A.OFFVIS_ITS ---
Vital Signs 02/12/24 11:39 Height 5 ft 4 in Weight 108 lb BMI 18.5 Intake Visit Reasons: ov- po pain left knee Intake Note: Jeanna is a 53 year old female who presents with with left knee pain after her Left knee Arthroscopic wash out on 01/14/2024. The patient states that she has a history of ?degenerative bone disease . She underwent right total knee replacement surgery at age 38 while living in [place]. The patient's did undergo washout of her left knee on January 14 2024 for treatment of suspected left septic knee. During the surgery there was no purulence or cloudy fluid found within her knee joint. There was inflammation of the synovium consistent with degenerative joint disease. The patient states that she has taken Tylenol which gives her mild relief. She stopped taking her antibiotics last week. She has not followed up with the infectious disease service since being in the hospital. Allergies codeine Adverse Reaction (Verified 02/12/24 11:43) Rash Medication List - Last Reconciled 02/12/24 by Rajinder Avila MD acetaminophen 500 mg PO Q6H PRN methadone 100 mg PO DAILY sucralfate 1 g PO BID PFSH Medical History (Updated 02/12/24 @ 12:04 by Rajinder Avila MD) Adjustment reaction with mixed emotional features Social History Household Members: Family Housing: House Do you presently have visiting nurse or other home services: No Patient Tobacco Use Status: Tobacco use Unknown Substance Use Type: Crack/Cocaine service: No Physical Exam Vital Signs: BMI result Body Mass Index 18.5 Extrem Other: Left knee examination shows that the surgical incisions are well healed, minimal effusion, palpable crepitus with range of motion, no instability Assessment & Plan Assessment & Plan (1) Left knee pain: Code(s): M25.562 - Pain in left knee Category: Medical Plan Ms. Duque presents with left knee pain due to degenerative joint disease. She did undergo washout of her left knee on 01/14/2024 due to suspicion of infection. At this point the patient does not appear to have active infection in her left knee. She does have residual discomfort due to degenerative joint disease. Because of the possibility of recent infection the patient knows that she is not currently a candidate for total knee replacement surgery. I also recommended that the patient did not get a cortisone injection in light of possible recent infection. The patient may be a candidate for a nerve block by the pain management service. Thus, I will put in a referral to them. I also recommended that the patient have a follow-up with the infectious disease service because she has not been seen by them since being in the hospital last month. The patient will contact me prior to her follow-up appointment in 2 months should any questions or concerns arise. Orders: Referrals Infectious Disease Referral M00.9 - Pyogenic arthritis, unspecified Pain Management Referral M25.562 - Pain in left knee Coding Level of Care Code Global (54848) Diagnoses Left knee pain M25.562
[2024-02-12 11:39] VITALS: BMI 18.5
== END 2024-02-12 11:55 | disposition home or self-care (01) ==
PROVIDERS: PCP Internal Medicine; Visit Provider Orthopaedic Surgery
DX: M25.562 Pain in left knee (principal)
CPT/HCPCS: 99024

== ENCOUNTER → 2024-02-12 11:29 | Outpatient (BNVA) | payer OTHER, SELFPAY | PROVIDERS: PCP Internal Medicine; Visit Provider Orthopaedic Surgery | DX: M25.562 Pain in left knee (principal) | CPT/HCPCS: 99212 ==

== ENCOUNTER 2024-02-19 14:14 | Outpatient (AMB) | payer OTHER, SELFPAY ==
--- NOTE | 2024-02-19 14:16 | MHC.OFFVIS ---
Vital Signs 02/19/24 14:48 Height 5 ft 4 in Weight 107 lb BMI 18.4 Pulse 106 H Pulse Source Pulse Oximeter Pulse Oximetry (%) 95 Oxygen Delivery Method Room Air Intake Visit Reasons: reff c DrRuark/pyogenic arthritis/antbx Allergies codeine Adverse Reaction (Verified 02/19/24 14:50) Rash HPI HPI reff [facility] DrRuark/pyogenic arthritis/antbx: Details: I had seen her in hospital last month. Left knee is not swollen now and feels well. Lyme PCR in joint is negative and no infection seen. [facility] Medical History Adjustment reaction with mixed emotional features Social History Household Members: Family Housing: House Do you presently have visiting nurse or other home services: No Patient Tobacco Use Status: Tobacco use Unknown Substance Use Type: Crack/Cocaine service: No Review of Systems Const All systems reviewed & are unremarkable except as noted in HPI and below Physical Exam Vital Signs: Last Vital Signs Pulse 106 H 02/19/24 14:48 Pulse Ox 95 02/19/24 14:48 Oxygen Delivery Method Room Air 02/19/24 14:48 BMI result Body Mass Index 18.4 Const General: cooperative Orientation/consciousness: patient oriented x3 HEENT Head: Yes normal to inspection Mouth: Normal oral and palatal mucosa present Eyes General: appearance normal, both eyes and all related structures Pupils: Equal, round and reactive pupils present Resp Effort & Inspection: normal respiratory effort Cardio Rate: regular rate Rhythm: regular rhythm GI Palpation (GI): Soft to palpation and nontender General: Yes no CVA tenderness Back/Spine/Pelvis Back: no CVA tenderness Skin General skin exam: no rashes or lesions noted Neuro General: patient oriented x3 Cranial nerves: Yes CN's II-XII intact bilaterally and Yes Equal, round and reactive pupils present Extrem General: Yes normal to inspection Psych Appearance: grossly normal Assessment & Plan Assessment & Plan (1) Left knee pain: Comment: knee swelling seems to have resolved and no infection seen,including Lyme Code(s): M25.562 - Pain in left knee Category: Medical Plan No further antibiotics Coding Level of Care Code Est Pt Level 3 (77487) Diagnoses Left knee pain M25.562
[2024-02-19 14:48] VITALS: PULSE 106; O2SAT 95; BMI 18.4
== END 2024-02-19 15:20 | disposition home or self-care (01) ==
LOC: HO.HID 14:15
PROVIDERS: PCP Internal Medicine; Visit Provider Internal Medicine
DX: M25.562 Pain in left knee (principal)
CPT/HCPCS: 99213

== ENCOUNTER → 2024-02-19 14:14 | Outpatient (BNVA) | payer OTHER, SELFPAY | PROVIDERS: PCP Internal Medicine; Visit Provider Internal Medicine | DX: M25.562 Pain in left knee (principal) | CPT/HCPCS: 99212 ==

== ENCOUNTER 2025-08-11 00:47 | Emergency (ER) | payer OTHER, SELFPAY ==
--- NOTE | ~2025-08-11 | XR_ITS ---
CLINICAL HISTORY: swelling pain Left knee, 4 views COMPARISON: CR/WA/SR - XR KNEE 1-2 VIEWS LEFT - 01/13/24 08:08 EDT FINDINGS: No acute fracture. No dislocation. Similar degenerative changes. Possible small effusion. Soft tissue swelling. IMPRESSION: Possible small effusion. Soft tissue swelling. This document has been electronically signed by: Syd Painting MD on 08/11/2025 04:48:34
[2025-08-11 00:55] VITALS: BP 118/75; PULSE 95; RESP 18; TEMP 36.7; O2SAT 95; BMI 16.3
[2025-08-11 01:14] LABS: MANUAL DIFF FLAG NO
[2025-08-11 01:18] LABS: Hematocrit 37.5 % (37.0-47.0); Hemoglobin 11.4 g/dl (12.0-16.0); Imm Gran Abs Auto 0.01 X10*3/uL (0.00-0.03); Imm Gran Pct Auto 0.1 % (0.0-0.4); Lymphocytes Absolute Auto 2.1 X10*3/uL (1.2-4.9); Mean Corpuscular HGB Conc 30.4 g/dl (31.0-35.0); Mean Corpuscular Hemoglobin 24.9 pg (27.0-33.0); Mean Corpuscular Volume 81.9 fL (80.0-98.0); NRBC Abs Auto 0.000 X10*3/uL (0.0-0.012); NRBC Pct Auto 0.0 /100WBC (0.0-0.2); Platelet Count 280 X10*3/uL (160-400); Red Blood Count 4.58 X10*6/uL (4.20-5.50); White Blood Count 9.0 X10*3/uL (4.8-10.8)
[2025-08-11 01:30] LABS: Alanine Aminotransferase 14 U/L (0-31); Albumin Level 4.1 g/dL (3.5-5.0); Alkaline Phosphatase 74 U/L (39-117); Anion Gap 12 (12-20); Aspartate Amino Transferase 23 U/L (5-31); Blood Urea Nitrogen 15 mg/dL (9-16); Calcium 9.5 mg/dL (8.4-10.2); Carbon Dioxide 29 mmol/L (22-29); Chloride 103 mmol/L (96-108); Creatinine Clr Calc Pharmacy 84.4; Estimated Glomerular Filt Rate > 60; Magnesium 1.9 mg/dL (1.6-2.6); Potassium 4.7 mmol/L (3.3-5.1); Sodium 139 mmol/L (135-145); Total Protein 7.0 g/dL (6.5-8.0)
--- OUTSIDE RECORDS SUMMARY | 2025-08-11 01:47 | XMS_ITS | Clinical Summary ---
Author Organization [facility] Address [address] [place], [place] [id number] Phone Care Team Providers Care Television And Radio Repairer Name Role Phone Gale Cardenas SENIOR RADIATION THERAPIST Primary Care Provi yuri Unavailable Social History Tobacco Use Types Packs/Day Years Used Date Smoking Tobacco: Never Assessed Education Answer Date Recorded Are you interested in more education? Not on antony e 01/27/2023 Are you concerned about learning? Not on file 01/27/2023 No 01/27/2023 No 01/27/2023 Digital Access Answer Date Recorded No 02/25/2023 No 02/25/2023 No 02/25/2023 Reliable internet access at home? Not on file 02/25/2023 Device with a working camera? Not on file Comments Unknown Sex and Gender Information Value Date Recorded Sex Assigned at Not on file Legal Sex Female 2:47 PM EDT Gender Identity Not on file Sexual Orientation Not on file Last Filed Vital Signs Vital Sign Reading Time Taken Comments Blood Pressure 106/80 01/09/2019 1:43 PM EDT Pulse - - Temperature - - Respiratory Rate - - Oxygen Saturation 95% 01/09/2019 1:00 PM EDT Inhaled Oxygen Concentration - - Weight - - Height - - Body Mass Index - - Plan of Treatment Health Maintenance Due Date Last Done Comments Adult Td,Tdap Booster 1972 LIPID PANEL 1972 DEPRESSION SCREENING 1984 SMOKING Hx and SMOKELESS TOB ACCO SCREENING 1985 HEPATITIS C SCREENING 1990 HIV ONE-TIME SCREENING (18-6 5 YEARS) 1990 PAP SMEAR 1993 MAMMOGRAM 2012 COLOGUARD 2017 COLONOSCOPY 2017 COLORECTAL CANCER SCREENING 2017 FIT TEST 2017 FOBT 2017 SIGMOIDOSCOPY 2017 VIRTUAL COLONOSCOPY 2017 PNEUMOCOCCAL VACCINES (50+ y ears) (1 of 1 - PCV) 2022 ZOSTER VACCINES (1 of 2) 2022 INFLUENZA VACCINE (#1) 2025 COVID-19 VACCINE (1 - 2024-2 6 season) 2025 RSV VACCINE (1 - 1-dose 75+ series) 2047 HEPATITIS A VACCINES Aged Out No long er eligible based on patient's age to complete this topic HIB VACCINES Aged Out No longer eligi ble based on patient's age to complete this topic MENINGOCOCCAL VACCINES (ACWY) Aged Out No longer eligible based on patient's age to complete this topic MENINGOCOCCAL VACCINES (B) Aged Out N o longer eligible based on patient's age to complete this topic Medical Devices Not on file Insurance [employer] [address] [place], [place] [address] [place] [address] [place] [address] [employer] [address] [place] [address] [employer] [facility] [employer] [facility] Care Teams Television And Radio Repairer Relationship Specialty Start Date End Date Gale Cardenas NP PCP - General Family Medicine 12/14/18 Additional Source Comments The information contained in this document represents components of the legal health record. It is not the complete legal health record.[facility]
--- OUTSIDE RECORDS SUMMARY | 2025-08-11 01:47 | XMS_ITS | Clinical Summary ---
Author Organization [facility] Address [address] [place] [address] Care Team Providers Care Carbonation Tester Name Role Phone Unavailable Primary Care Provider Unavailabl e Social History Tobacco Use Types Packs/Day Years Used Date Smoking Tobacco: Never Assessed Comments Unknown Sex and Gender Information Value Date Recorded Sex Assigned at Not on file Legal Sex Female 11:39 PM EST Gender Identity Not on file Sexual Orientation Not on file Plan of Treatment Health Maintenance Due Date Last Done Comments Breast Cancer Screening 1972 Colorectal Cancer Screening: Colonoscopy 1972 DTaP,Tdap,and Td Vaccines (1 - Tdap) 1991 Hepatitis B Vaccines (1 of 3 - 19+ 3-dose series) 1991 Cervical Cancer Screening: P ap Smear 1993 Pneumococcal Vaccine: 50+ Ye ars (1 of 1 - PCV) 2022 Zoster Vaccines (1 of 2) 2022 HIV Screening 09/04/2022 Hepatitis C Screening 09/04/2022 Social Influencers of Health Screening 09/04/2022 Depression Screening 10/02/2024 COVID-19 Vaccine (1 - 2023-2 5 season) 2025 Influenza Vaccine (#1) 2025 RSV Immunization Adult Patie nts (1 - 1-dose 75+ series) 2047 HIB Vaccines Aged Out No longer eligi ble based on patient's age to complete this topic HPV Vaccines Aged Out No longer eligi ble based on patient's age to complete this topic Hepatitis A Vaccines Aged Out No long er eligible based on patient's age to complete this topic IPV Vaccines Aged Out No longer eligi ble based on patient's age to complete this topic MMR Vaccines Aged Out No longer eligi ble based on patient's age to complete this topic Meningococcal ACWY Vaccine Aged Out N o longer eligible based on patient's age to complete this topic Meningococcal B Vaccine Aged Out No l onger eligible based on patient's age to complete this topic RSV Immunization Patients Un yuri 20 months Aged Out No longer eligible b ased on patient's age to complete this topic Varicella Vaccines Aged Out No longer eligible based on patient's age to complete this topic
[2025-08-11 02:29] LABS: Appearance Urine Clear; Glucose Urine UA Negative (Negative); PH 7.0 (5.0-9.0); Specific Gravity - Urine 1.025 (1.005-1.025); UMIC TRIGGER UACC YES
--- NOTE | 2025-08-11 04:47 | ED.EXTPRO ---
HPI - Extremity Problem General Chief complaint: Extremity Problem Stated complaint: Swollen left leg, fever, chills Time Seen by Provider: 08/11/25 04:45 Source: patient Mode of arrival: ambulatory Limitations: no limitations History of Present Illness ED Provider: Joey TAMEZ HPI Narrative: The patient is a 54-year-old female with a history of cocaine dependency, chronic pain currently on methadone, and previous septic joint of the left knee in January of 2024, but without history of IVDA, presenting to the ED for evaluation of recurrent atraumatic swelling and painful range of motion of the left knee. The patient reports for the past 2-3 days she has been experiencing gradually increasing swelling with painful range of motion of the left knee, denies open injury, denies associated fever/chills, nausea, vomiting, or other systemic complaint. Related Data Home Medications ?Medication ?Instructions ?Recorded ?Confirmed acetaminophen 500 mg tablet 500 mg PO Q6H PRN Pain 01/13/24 02/12/24 methadone 10 mg/mL oral concentrate 100 mg PO DAILY 01/13/24 02/12/24 sucralfate 1 gram tablet 1 g PO BID 01/19/24 02/12/24 Previous Rx's ?Medication ?Instructions ?Recorded prednisone 20 mg tablet 40 mg (2 x 20 mg) PO DAILY 5 days 08/11/25 #10 tabs Allergies Allergy/AdvReac Type Severity Reaction Status Date / Time codeine AdvReac Rash Verified 08/11/25 01:01 Review of Systems Review of Systems: Yes all other systems are reviewed and are negative PMFSH Past Medical History Medical History Adjustment reaction with mixed emotional features Social History Social History Household Members: Family Housing: House Do you presently have visiting nurse or other home services: No Patient Tobacco Use Status: Tobacco use Unknown Smoked in Last 30 Days: Yes Use of substances other than those prescribed or required for medical reasons: No Substance Use Type: Crack/Cocaine Advance Directives: No Advance Directives Information Provided: No Patient : No service: No Physical Exam Vital Signs: Vital Signs: Last Vital Signs Temp 97.7 F 08/11/25 08:55 Pulse 78 08/11/25 08:55 Resp 14 08/11/25 08:55 BP 119/70 08/11/25 08:55 Pulse Ox 97 08/11/25 08:55 O2 Del Method Room Air 08/11/25 08:55 BMI result Body Mass Index 16.3 CONSTITUTIONAL: The patient appears cachectic, in mild discomfort, otherwise non-toxic and in no acute distress. Vital signs as documented. HEAD: Atraumatic, normocephalic. EYES: EOMs grossly intact, pupils equal, conjunctiva clear, no exudate. ENT: Nares patent, no discharge. Airway patent, no audible stridor, visible mucosa is pink and moist without noted lesions. NECK: trachea is midline, no obvious masses or gross abnormalities. CHEST: Symmetric movement, normal appearance. LUNGS: Non-labored work of breathing. CARDIAC: No evidence of hypoperfusion. ABDOMEN: Nondistended, no obvious injury. : Deferred. EXTREMITIES: There is significant swelling noted to the left knee, specifically superior to the knee joint with point tenderness and fluid shift, there is no overlying erythema, no evidence of open injury, no associated warmth. Moves all extremities spontaneously without reported pain. No obvious injury or deformity noted. NEURO: Alert and oriented x3, CN II-XII appear grossly intact. Targeted dyskinesia noted, cerebellar Functioning otherwise grossly intact. Speech clear and appropriate. SKIN: Warm, dry, color appropriate. No rashes or lesions noted. Course Course Course Narrative: JOI Wright 08/11/25 1006 I received patient in sign-out pending synovial fluid results and disposition. In summary, patient is a 54-year-old female with history of cocaine dependency, no IV drug use, currently on methadone, previous septic joint of left knee in January 2024. She presented last night for evaluation of recurring atraumatic swelling and painful ROM of left knee times 2-3 days. Stated pain was worsening. On my examination, no significant swelling noted to left knee as aspiration was performed prior to my assumption of care. Mild tenderness to palpation superior, anteriorly. No palpable fluctuance. No overlying erythema. No open injury, no warmth. Able to flex and extend left knee without pain. Her CBC does not reveal any leukocytosis or left shift. Chemistry unremarkable. Left knee aspirate showing 44095 WBCs, 88 neutrophils. I would expect these numbers to be more elevated, no concern for septic joint. The knee also does not appear infected clinically. On micro, sample appears yellow/cloudy and is positive for intracellular calcium pyrophosphate crystals, consistent with pseudogout. Discussed results with patient and her daughter at bedside. Patient states she feels well and is anxious for discharge. She states that she is status post gastric sleeve and can not take NSAIDs. Will prescribe prednisone x5 days. Advised to follow up with PCP. Patient has remained stable throughout ED visit today. Discussed worrisome signs and symptoms and when to return to the ED. All questions answered at this time. Patient is agreeable with disposition and stable for discharge. Medications Administered Discontinued Medications Generic Name Dose Route Start Last Admin Trade Name Freq PRN Reason Stop Dose Admin Acetaminophen 650 mg 08/11/25 02:22 08/11/25 02:27 Acetaminophen 325 Mg Tablet PO 08/11/25 02:23 650 mg ONCE ONE Administration Lidocaine HCl 5 ml 08/11/25 05:01 08/11/25 05:11 Lidocaine Hcl 1 % Mpf 5 Ml Vial INFILTRATI 08/11/25 05:02 5 ml ONCE ONE Administration Oxycodone HCl 10 mg 08/11/25 05:01 08/11/25 05:09 Oxycodone Hcl Immed Release 5 Mg Tablet PO 08/11/25 05:02 10 mg ONCE ONE Administration Medical Decision Making Medical Decision Making MDM Narrative: 5:16 AM 08/11/2025 (Chon TAMEZ): The patient is a 54-year-old female with a history of cocaine dependency, chronic pain currently on methadone, and previous septic joint of the left knee in January of 2024, but without history of IVDA, presenting to the ED for evaluation of recurrent atraumatic swelling and painful range of motion of the left knee. The patient reports for the past 2-3 days she has been experiencing gradually increasing swelling with painful range of motion of the left knee, denies open injury, denies associated fever/chills, nausea, vomiting, or other systemic complaint. The patient's exam is reassuring, there is significant swelling of the left knee consistent with joint effusion, no overlying warmth, or erythema. The patient has painful but not impaired range of motion, and increased pain with weight-bearing. The patient's laboratory evaluation is markedly reassuring, no leukocytosis, anemia, electrolyte abnormality, or LISS. The patient's presentation is more consistent with joint effusion rather than septic joint, however patient's daughters are present in the ED and insist the patient had no other signs or symptoms of joint infection in 2023 when she was ultimately diagnosed with a septic joint. Patient's x-ray shows small joint effusion, with severe arthritic changes, no acute findings, no fracture. The patient was recommended for outpatient follow up with Orthopedics for drainage and injection, however patient and patient's family were adamant that they want of the joint drained and check for septic arthritis. We will consent the patient for arthrocentesis and await synovial fluid results. 6:21 AM 08/11/2025 (Chon TAMEZ): Arthrocentesis was successful, patient tolerated the procedure well, approximately 35 cc of yellow turbid but non purulent fluid was aspirated from the knee. We will await synovial fluid results. Lab Data 08/11/25 01:06 08/11/25 01:07 Labs: Lab Results 08/11/25 08/11/25 08/11/25 Range/Units 01:06 01:07 02:22 WBC 9.0 (4.8-10.8) X10*3/uL RBC 4.58 (4.20-5.50) X10*6/uL Hgb 11.4 L (12.0-16.0) g/dl Hct 37.5 (37.0-47.0) % MCV 81.9 (80.0-98.0) fL MCH 24.9 L (27.0-33.0) pg MCHC 30.4 L (31.0-35.0) g/dl RDW 15.9 (11.0-16.0) % Plt Count 280 D (160-400) X10*3/uL MPV 9.0 L (9.4-12.3) fL Immature Gran % (Auto) 0.1 (0.0-0.4) % Neut % (Auto) 65.2 (45-73) % Lymph % (Auto) 23.2 (20-40) % Summit % (Auto) 10.4 (2-11) % Eos % (Auto) 0.4 (0-4) % Baso % (Auto) 0.7 (0-2) % Lymph # (Auto) 2.1 (1.2-4.9) X10*3/uL Summit # (Auto) 0.9 (0.1-1.2) X10*3/uL Eos # (Auto) 0.0 (0.0-0.4) X10*3/uL Baso # (Auto) 0.1 (0.0-0.2) X10*3/uL Abs Immat Gran (auto) 0.01 (0.00-0.03) X10*3/uL Absolute Neuts (auto) 5.9 (2.0-8.3) x10*3/uL Absolute Nucleated RBC 0.000 (0.0-0.012) X10*3/uL Nucleated RBC % (auto) 0.0 (0.0-0.2) /100WBC Sodium 139 (135-145) mmol/L Potassium 4.7 D (3.3-5.1) mmol/L Chloride 103 (96-108) mmol/L Carbon Dioxide 29 (22-29) mmol/L Anion Gap 12 (12-20) BUN 15 (9-16) mg/dL Creatinine 0.53 (0.5-1.4) mg/dL Estim Creat Clear Calc 84.4 Estimated GFR > 60 Random Glucose 82 (60-115) mg/dL Calcium 9.5 (8.4-10.2) mg/dL Magnesium 1.9 (1.6-2.6) mg/dL Total Bilirubin 0.5 (0.0-1.0) mg/dL AST 23 (5-31) U/L ALT 14 (0-31) U/L Alkaline Phosphatase 74 (39-117) U/L Total Protein 7.0 (6.5-8.0) g/dL Albumin 4.1 (3.5-5.0) g/dL Urine Color Dark Yellow Urine Appearance Clear Urine pH 7.0 (5.0-9.0) Ur Specific Walker 1.025 (1.005-1.025) Urine Protein Trace (Neg-Trace) mg/dL Urine Glucose (UA) Negative (Negative) mg/dL Urine Ketones Trace (Negative) mg/dL Urine Blood Small (1+) H (Negative) Urine Nitrite Negative (Negative) Ur Leukocyte Esterase Trace H (Negative) Urine RBC >20 H (0-2) /HPF Urine WBC 0-5 (0-5) /HPF Ur Squamous Epith Cells 3-5 (0-2) /HPF Urine Bacteria None Seen (None Seen) Hyaline Casts 0-2 (0-2) /LPF Synovial Source Synovial WBC X10*3/uL Synovial RBC X10*6/uL Synovial Neutrophils % Synovial Lymphocytes % Synovial Monocytes % Synovial Other Cells 08/11/25 Range/Units 06:22 WBC (4.8-10.8) X10*3/uL RBC (4.20-5.50) X10*6/uL Hgb (12.0-16.0) g/dl Hct (37.0-47.0) % MCV (80.0-98.0) fL MCH (27.0-33.0) pg MCHC (31.0-35.0) g/dl RDW (11.0-16.0) % Plt Count (160-400) X10*3/uL MPV (9.4-12.3) fL Immature Gran % (Auto) (0.0-0.4) % Neut % (Auto) (45-73) % Lymph % (Auto) (20-40) % Summit % (Auto) (2-11) % Eos % (Auto) (0-4) % Baso % (Auto) (0-2) % Lymph # (Auto) (1.2-4.9) X10*3/uL Summit # (Auto) (0.1-1.2) X10*3/uL Eos # (Auto) (0.0-0.4) X10*3/uL Baso # (Auto) (0.0-0.2) X10*3/uL Abs Immat Gran (auto) (0.00-0.03) X10*3/uL Absolute Neuts (auto) (2.0-8.3) x10*3/uL Absolute Nucleated RBC (0.0-0.012) X10*3/uL Nucleated RBC % (auto) (0.0-0.2) /100WBC Sodium (135-145) mmol/L Potassium (3.3-5.1) mmol/L Chloride (96-108) mmol/L Carbon Dioxide (22-29) mmol/L Anion Gap (12-20) BUN (9-16) mg/dL Creatinine (0.5-1.4) mg/dL Estim Creat Clear Calc Estimated GFR Random Glucose (60-115) mg/dL Calcium (8.4-10.2) mg/dL Magnesium (1.6-2.6) mg/dL Total Bilirubin (0.0-1.0) mg/dL AST (5-31) U/L ALT (0-31) U/L Alkaline Phosphatase (39-117) U/L Total Protein (6.5-8.0) g/dL Albumin (3.5-5.0) g/dL Urine Color Urine Appearance Urine pH (5.0-9.0) Ur Specific Walker (1.005-1.025) Urine Protein (Neg-Trace) mg/dL Urine Glucose (UA) (Negative) mg/dL Urine Ketones (Negative) mg/dL Urine Blood (Negative) Urine Nitrite (Negative) Ur Leukocyte Esterase (Negative) Urine RBC (0-2) /HPF Urine WBC (0-5) /HPF Ur Squamous Epith Cells (0-2) /HPF Urine Bacteria (None Seen) Hyaline Casts (0-2) /LPF Synovial Source Left Knee Aspirate Synovial WBC 34.425 X10*3/uL Synovial RBC < 0.002 X10*6/uL Synovial Neutrophils 88 % Synovial Lymphocytes 1 % Synovial Monocytes 8 % Synovial Other Cells 3 Procedures Joint Aspiration/Injection Joint Asp./Inject. 1: Time Out Performed: Yes Side of body: left Joint Aspirated: knee Ultrasound Guidance: Yes Skin Prep: Povidone-Iodine1% Local Anesthetic: lidocaine 1% Amount of anesthesia used (mL): 5 Needle Size Used: 18G Fluid Obtained: turbid Total fluid obtained (mL): 35 Patient Tolerated Procedure: well Complications: none Discharge Plan Discharge Clinical Impression: Pseudogout Patient Disposition: Home, Self-Care Additional Instructions: You were evaluated in the ED today for left knee pain.. Your blood work is reassuring. Your left knee was drained. The fluid shows calcium pyrophosphate crystals, consistent with pseudogout. You do not warrant treatment with any antibiotics at this time. You were unable to take NSAIDs so I am sending a 5 day course of prednisone to your pharmacy. Follow up with your primary care provider. Return with any new or worsening symptoms. In the case of an emergency call 911. Prescriptions: New prednisone 20 mg tablet 40 mg PO DAILY 5 Days Qty: 10 0RF No Action acetaminophen 500 mg Tablet 500 mg PO Q6H PRN (Reason: Pain) methadone 10 mg/mL Concentrate 100 mg PO DAILY sucralfate 1 gram tablet 1 g PO BID Referrals: Wander Tang DO, MD [Primary Care Provider, Internal Medicine] Print Language: Amharic
[2025-08-11] MEDS: oxyCODONE HCl Immed Release 5 MG TABLET 10 MG PO (05:09)
[2025-08-11] MEDS: Lidocaine HCl 1 % MPF 5 ML VIAL INFILTRATI (05:11)
[2025-08-11 06:25] VITALS: BP 104/49; PULSE 62; RESP 18; TEMP 37.2; O2SAT 96
[2025-08-11 07:31] LABS: MN% 10.9 %; PMN% 89.1 %
[2025-08-11 07:32] LABS: RBC Synovial Fluid < 0.002 X10*6/uL
[2025-08-11 08:55] VITALS: BP 119/70; PULSE 78; RESP 14; TEMP 36.5; O2SAT 97
[2025-08-11 09:01] LABS: Neutrophils Synovial Fluid 88 %
[2025-08-11 09:02] LABS: BF Shift QC OK YES; Lymphocytes Synovial Fluid 1 %; Man Diluent Bkgrd OK YES; Monocytes Synovial Fluid 8 %; Other Cells Synovial Fluid 3
[2025-08-11 10:38] VITALS: BP 119/70; PULSE 78; RESP 14; TEMP 36.5; O2SAT 97
[2025-08-11 16:59] LABS: Glucose Synovial Fluid 42
== END 2025-08-11 10:38 | disposition home or self-care (01) ==
PROVIDERS: Physician Assistant; Emergency Provider Emergency Medicine; PCP Internal Medicine
DX: M11.262 Other chondrocalcinosis, left knee (principal); M25.462 Effusion, left knee; G89.29 Other chronic pain; Z79.899 Other long term (current) drug therapy; Z98.84 Bariatric surgery status
CPT/HCPCS: 20611; 36415; 73564; 80053; 81001; 82945; 83735; 85025; 87070; 87073; 87205; 89051; 89060; 99284; J2003

== ENCOUNTER → 2025-08-11 04:05 | Outpatient (BNV) | payer OTHER, SELFPAY | PROVIDERS: Emergency Provider Emergency Medicine; PCP Internal Medicine; Visit Provider Radiology Diagnostic Radiology | DX: M25.562 Pain in left knee (principal); R22.42 Localized swelling, mass and lump, left lower limb | CPT/HCPCS: 73564 ==